=== PATIENT | female | born 1930 | race Hispanic/Latino ===

== ENCOUNTER 2018-07-19 14:33 | Emergency (ER) | payer MEDICARE ==
[2018-07-19 14:34] VITALS: BMI 23.3
[2018-07-19 14:53] VITALS: BP 151/72; PULSE 99; RESP 18; TEMP 98.4; O2SAT 99
[2018-07-19 15:49] LABS: URINE BILIRUBIN NEGATIVE (NEGATIVE); URINE BLOOD 3+ (NEGATIVE); URINE CLARITY Hazy (Clear); URINE COLOR Red (YELLOW); URINE GLUCOSE (UA) NORMAL (Normal); URINE LEUKOCYTE ESTERASE 2+ Leu/uL (Negative); URINE PROTEIN 2+ mg/dL (NEGATIVE); URINE UROBILINOGEN NORMAL mg/dL (0.2-1.0)
[2018-07-19 15:52] LABS: URINE BACTERIA OCC (<OCC)
--- NOTE | 2018-07-19 17:35 | C.PDOC ---
Addendum entered and electronically signed by Zita Castle PA 07/21/18 12:19: Addendum Addendum: 07/21/18 12:18 Urine culture came back (+) for ESBL. However it is susceptible to Macrobid which the patient is on. No need for change in medications. Original Note: History Of Present Illness 88 year old female presents to the ED for evaluation of urinary frequency for the last 3 weeks. Patient states she was seen by her PMD and prescribed Cipro, with no improvement. Denies back pain, abdominal pain, frequency, fever, chills, nausea, diarrhea, and any other associated symptoms. Time Seen by Provider: 07/19/18 15:10 Chief Complaint (Nursing): Female Genitourinary History Per: Patient History/Exam Limitations: no limitations Onset/Duration Of Symptoms: Days Current Symptoms Are (Timing): Still Present Past Medical History Reviewed: Historical Data, Nursing Documentation, Vital Signs Vital Signs: Last Vital Signs Temp 98.4 F 07/19/18 14:47 Pulse 99 H 07/19/18 14:47 Resp 18 07/19/18 14:47 BP 151/72 H 07/19/18 14:47 Pulse Ox 99 07/19/18 14:47 - Medical History PMH: HTN - [facility] Procedures RESPIRATORY VENTILATION, 24-96 CONSECUTIVE HOURS (10/20/17) Family History: States: Unknown Family Hx - Social History Hx Alcohol Use: Yes Hx Substance Use: No - Immunization History Hx Tetanus Toxoid Vaccination: No Hx Influenza Vaccination: No Hx Pneumococcal Vaccination: No Review Of Systems Except As Marked, All Systems Reviewed And Found Negative. Constitutional: Negative for: Fever, Chills Gastrointestinal: Negative for: Nausea, Vomiting, Abdominal Pain, Diarrhea Genitourinary: Positive for: Frequency Musculoskeletal: Negative for: Back Pain Physical Exam - Physical Exam Appears: Non-toxic Skin: Normal Color, Warm, Dry Head: Atraumatic, Normacephalic Respiratory: Other (no acute respiratory distress.) Gastrointestinal/Abdominal: Normal Exam, Soft, No Tenderness Back: Normal Inspection, No CVA Tenderness, No Vertebral Tenderness, No Paraspinal Tenderness Extremity: Normal ROM (x4) Neurological/Psych: Oriented x3, Normal Speech Gait: Steady ED Course And Treatment O2 Sat by Pulse Oximetry: 99 (RA) Pulse Ox Interpretation: Normal Medical Decision Making Medical Decision Making: Plan: --Urine culture. --Urinalysis. --Urine HCG --Given Macrobid. Progress/Update: Patient stable for discharge home. Disposition Counseled Patient/Family Regarding: Studies Performed, Diagnosis, Need For F ollowup, Rx Given - Disposition Referrals: Vivek Carter MD [Staff Provider] - Casimiro Marshall MD [Staff Provider] - Shady Marks Jr., MD [Staff Provider] - Disposition: HOME/ ROUTINE Disposition Time: 17:33 Condition: GOOD Additional Instructions: Drink increased fluids Take antiboitcs until completed. Follow up with Dr Escobar and with Dr Marshall or Dr Javier after you finish your antiibiotics. Prescriptions: Nitrofurantoin Macrocrystals [Macrobid] 100 mg PO BID #14 cap Instructions: Urinary Tract Infection, Adult (DC) Forms: [facility] (Slovenian), General Discharge Instructions - Clinical Impression Clinical Impression: UTI (urinary tract infection) - PA / [employer] / Resident Statement MD/DO has reviewed & agrees with the documentation as recorded. - Scribe Statement The provider has reviewed the documentation as recorded by the Scribe (Malika Uribe) All medical record entries made by the Scribe were at my direction and personally dictated by me. I have reviewed the chart and agree that the record accurately reflects my personal performance of the history, physical exam, medical decision making, and the department course for this patient. I have also personally directed, reviewed, and agree with the discharge instructions and disposition.
== END 2018-07-19 17:48 | disposition home or self-care (01) ==
LOC: C.ER 14:33
DX: N39.0 Urinary tract infection, site not specified (principal)

== ENCOUNTER 2018-08-10 15:29 | Inpatient (IN) | payer MEDICARE ==
[2018-08-10 15:29] VITALS: BMI 23.3
--- NOTE | 2018-08-10 16:14 | C.PDOC ---
History Of Present Illness 88 year old female with PMHX of HTN sent to ED by Dr. Cartwright for evaluation of chronic cystitis. Complaining of 06/19 periumbilical and lower abdominal pain, urinary incontinence and urinary frequency for the past 2 months. Was seen in ED 07/19, diagnosed with UTI and placed on Macrobid for 7 days. Patient took the full course without improvement of symptoms. Culture and sensitivities later returned as ESBL + sensitive to Amikacin (RODNEY <2), Gentamicin (<1), Macrobid (<16), and Tobramycin (<1). Patient is now complaining of watery diarrhea for the last 3 days, non-bloody. Multiple episodes per day. Associated with loss of appetite, chills, and generalized weakness. Denies fever, nausea, vomiting, flank pain, hematuria. Treatment with Aleve does provides mild improvement of abdominal pain. Time Seen by Provider: 08/10/18 15:44 Chief Complaint (Nursing): Female Genitourinary Past Medical History Vital Signs: Last Vital Signs Temp 98 F 08/10/18 15:36 Pulse 110 H 08/10/18 15:36 Resp 18 08/10/18 15:36 BP 123/77 08/10/18 15:36 Pulse Ox 99 08/10/18 15:36 - Medical History PMH: HTN Other Surgeries: hysterectomy - [facility] Procedures RESPIRATORY VENTILATION, 24-96 CONSECUTIVE HOURS (10/20/17) Family History: States: Unknown Family Hx - Social History Hx Tobacco Use: Yes (former smoker 1/2ppd for 70 years) Hx Alcohol Use: Yes Hx Substance Use: No - Immunization History Hx Tetanus Toxoid Vaccination: No Hx Influenza Vaccination: No Hx Pneumococcal Vaccination: No Review Of Systems Constitutional: Positive for: Chills. Negative for: Fever Cardiovascular: Negative for: Chest Pain, Palpitations Respiratory: Negative for: Cough, Shortness of Breath Gastrointestinal: Positive for: Abdominal Pain, Diarrhea, Other (loss of appetite). Negative for: Nausea, Vomiting, Constipation, Melena, Hematochezia Genitourinary: Positive for: Dysuria, Frequency, Incontinence Neurological: Positive for: Weakness (generalized). Negative for: Numbness, Headache, Dizziness Physical Exam - Physical Exam Appears: Non-toxic, No Acute Distress Skin: Normal Color, Warm, Dry, Other (poor turgor) Head: Atraumatic, Normacephalic Eye(s): bilateral: Normal Inspection, PERRL, EOMI Nose: Normal, No Flaring Oral Mucosa: Moist Throat: Normal, No Erythema Neck: Normal, Normal ROM Cardiovascular: Rhythm Regular (tachycardia), No Rhythm Irregular, No Friction Rub, Murmur (systolic murmur heard in 2nd intercostal space on the R) Respiratory: Normal Breath Sounds, No Decreased Breath Sounds, No Rales, No Rhonchi, No Wheezing Gastrointestinal/Abdominal: Bowel Sounds (hyperactive ), Soft, Tenderness (diffuse denterness), Guarding (with palpation of all quadrants), No Rebound Back: No CVA Tenderness Extremity: Normal ROM, No Tenderness, Pedal Edema (trace), No Calf Tenderness, Capillary Refill (less than 2 seconds) Pulses: Left Dorsalis Pedis: Normal, Right Dorsalis Pedis: Normal Neurological/Psych: Oriented x3, Normal Speech, Normal Cranial Nerves (grossly), Normal Motor ED Course And Treatment - Laboratory Results Result Diagrams: 08/10/18 17:51 08/10/18 17:51 O2 Sat by Pulse Oximetry: 99 Medical Decision Making Medical Decision Making: Plan: CBC: WBC: 20.5, Hgb: 10, Hct: 31.4, Plt: 553 CMP: BUN 50, Cr 2.7 increased from 1.1 on 10/24/17, AST/ALT: 42/64, Alk phos 189 UA: 2+ protein, 3+ blood, 3+ leuk esterase, 115 WBC, 79 RBC, Many WBC, Many bacteria Urine culture Urine cytology IVF Tobrymicin 100mg IVBP due to sensitivities of 07/19/18 visit 18:[address] Beth Carter who agrees with plan and accepts admission. Requests Dr. Velázquez for nephrology . Disposition - Disposition Disposition: HOSPITALIZED Disposition Time: 18:37 Condition: STABLE - Clinical Impression Clinical Impression: UTI (urinary tract infection), Acute renal insufficiency, Dehydration, History of ESBL E. coli infection
[2018-08-10] MEDS ORDERED: Sodium Chloride 0.9% 1,000 ML IV ONE (16:58)
[2018-08-10] MEDS ORDERED: Sodium Chloride 0.9% 1,000 ML ONE (17:36)
[2018-08-10] MEDS ORDERED: Tobramycin Sulfate 40 mg/ml (2ml) Inj IVPB STA (17:43)
[2018-08-10 18:00] LABS: BASO # 0.1 K/uL (0.0-0.2); BASO % 0.4 % (0.0-2.0); EOS # 0.1 K/uL (0.0-0.7); EOS % 0.5 % (0.0-4.0); LYMPH # 1.3 K/uL (1.0-4.3); LYMPH % 6.5 % (20.0-40.0); MEAN CELL VOLUME 89.8 fL (81.0-99.0); MEAN CORPUSCULAR HEMOGLOBIN 28.7 pg (27.0-31.0); MEAN CORPUSCULAR HGB CONC 31.9 g/dL (33.0-37.0); MEAN PLATELET VOLUME 7.8 fL (7.2-11.7); MONO # 1.4 K/uL (0.0-0.8); NEUT # 17.6 K/uL (1.8-7.0); NEUT % 85.6 % (50.0-75.0); PLATELET COUNT 553 K/uL (130-400); RBC 3.49 Mil/uL (3.80-5.20); RED CELL DISTRIBUTION WIDTH 13.6 % (11.5-14.5); WHITE BLOOD COUNT 20.5 K/uL (4.8-10.8)
[2018-08-10 18:19] LABS: ALB/GLOB RATIO 0.9 (1.0-2.1); ALBUMIN 3.5 g/dL (3.5-5.0); CALCIUM 9.3 mg/dl (8.6-10.4)
[2018-08-10 18:26] LABS: BANDS 4 % (0-2); EOSINOPHIL 1 % (0-4); LYMPHOCYTE 13 % (20-40); MONOCYTE 4 % (0-10); NEUTROPHIL 78 % (50-75); TOTAL CELLS COUNTED 100
[2018-08-10 18:27] LABS: PLATELET ESTIMATE MARKEDLY INCREASED (NORMAL)
[2018-08-10 18:29] LABS: VENOUS BLOOD GAS BASE EXCESS -5.6 mmol/L (0.0-2.0); VENOUS BLOOD GAS PCO2 39 mmHg (40-60); VENOUS BLOOD GAS PO2 23 mm/Hg (30-55); VENOUS BLOOD PH 7.32 (7.32-7.43)
[2018-08-10 18:56] LABS: URINE BACTERIA MANY (<OCC); URINE BILIRUBIN NEGATIVE (NEGATIVE); URINE BLOOD 3+ (NEGATIVE); URINE CLARITY Hazy (Clear); URINE GLUCOSE (UA) NORMAL (Normal); URINE HYALINE CAST 0-2 /lpf (0-2); URINE LEUKOCYTE ESTERASE 3+ Leu/uL (Negative); URINE PROTEIN 2+ mg/dL (NEGATIVE); URINE UROBILINOGEN NORMAL mg/dL (0.2-1.0); WBC CLUMPS MANY /hpf
[2018-08-10 18:57] LABS: URINE COLOR YELLOW (YELLOW)
--- NOTE | 2018-08-10 19:38 | CP.PCM.CON ---
History of Present Illness - History of Present Illness History of Present Illness: sent for UTI/Cystistis last cultures + for ESBL- Merrem not tested will repeat c/s add merrem Review of Systems - Review of Systems All systems: reviewed and no additional remarkable complaints except - Constitutional Constitutional: As Per HPI - EENT Eyes: absent: As Per HPI, Blind Spots, Blurred Vision, Change in Vision, Decreased Night Vision, Diplopia, Discharge, Dry Eye, Exophthalmos, Floaters, Irritation, Itchy Eyes, Loss of Peripheral Vision, Pain, Photophobia, Requires Corrective Lenses, Sees Flashes, Spots in Vision, Tunnel Vision, Other Visual Disturbances, Loss of Vision, Other Ears: absent: As Per HPI, Decreased Hearing, Ear Discharge, Ear Pain, Tinnitus, Abnormal Hearing, Disequilibrium, Dizziness, Other Nose/Mouth/Throat: absent: As Per HPI, Epistaxis, Nasal Congestion, Nasal Discharge, Nasal Obstruction, Nasal Trauma, Nose Pain, Post Nasal Drip, Sinus Pain, Sinus Pressure, Bleeding Gums, Change in Voice, Dental Pain, Dry Mouth, Dysphagia, Halitosis, Hoarsness, Lip Swelling, Mouth Lesions, Mouth Pain, Odynophagia, Sore Throat, Throat Swelling, Tongue Swelling, Facial Pain, Neck Pain, Neck Mass, Other - Breasts Breasts: absent: As Per HPI, Change in Shape, Mass, Pain, Nipple Discharge, Nipple Inversion, Skin Changes, Swelling, Other - Cardiovascular Cardiovascular: absent: As Per HPI, Acrocyanosis, Chest Pain, Chest Pain at R est, Chest Pain with Activity, Claudication, Diaphoresis, Dyspnea, Dyspnea on Exertion, Edema, Irregular Heart Rhythm, Pain Radiating to Arm/Neck/Jaw, Leg Edema, Leg Ulcers, Lightheadedness, Orthopnea, Palpitations, Paroxysmal Nocturnal Dyspnea, Pedal Edema, Radiating Pain, Rapid Heart Rate, Slow Heart Rate, Syncope, Other - Respiratory Respiratory: absent: As Per HPI, Cough, Dyspnea, Hemoptysis, Dyspnea on Exertion, Wheezing, Snoring, Stridor, Pain on Inspiration, Chest Congestion, Excessive Mucous Production, Change in Mucous Color, Pain with Coughing, Other - Gastrointestinal Gastrointestinal: As Per HPI, Change in Bowel Habits - Genitourinary Genitourinary: As Per HPI - Reproductive: Female Reproductive:Female: absent: As Per HPI, Amenorrhea, Amenorrhea/ Control, Currently Menstual, Cycle <21 Days, Cycle >35 Days, Cycle Variable, Menses 1-7 Days, Menses >/= 8 Days, Menses Variable, Cycle > 4 Weeks Between, No Menses for 6 Months, Heavy Menses, Light Menses, Normal Menses, Spotting Between Cycles, S/P Hysterectomy, Menopausal, Post Menopausal, Premenarche, Abnormal Vaginal Bleeding, Dysmenorrhea, Dyspareunia, Genital Lesions, Genital Pruritis, Pelvic Pain, Prolapse Symptoms, Sexual Dysfunction, Vaginal Discharge, Vaginal Dryness, Vaginal Odor, Vaginal Pruritis, Other - Menstruation Menstruation: absent: As Per HPI, Amenorrhea, Amenorrhea/ Control, Currently Menstual, Cycle <21 Days, Cycle >35 Days, Cycle Variable, Menses 1-7 Days, Menses >/= 8 Days, Menses Variable, Cycle > 4 Weeks Between, No Menses for 6 Months, Heavy Menses, Light Menses, Normal Menses, Spotting Between Cycles, S/P Hysterectomy, Menopausal, Post Menopausal, Premenarche, Abnormal Vaginal Bleeding, Dysmenorrhea, Other - Musculoskeletal Musculoskeletal: absent: As Per HPI, Abnormal Gait, Arthralgias, Atrophy, Back Pain, Deformity, Joint Swelling, Limited Range of Motion, Loss of Height, Muscle Cramps, Muscle Weakness, Myalgias, Neck Pain, Numbness, Radiating Pain into Limb, Stiffness, Tingling, Other - Integumentary Integumentary: absent: As Per HPI, Acne, Alopecia, Bleeding Lesions, Change in Hair, Change in Nails, Change in Pigmentation, Changing Lesions, Dry Skin, Erythema, Furuncle, Hirsutism, Lesions, New Lesions, Non-Healing Lesions, Photosensitivity, Pruritus, Rash, Skin Pain, Skin Ulcer, Sores, Striae, Swelling, Unusual Bruising, Wounds, Jaundice, Other - Neurological Neurological: absent: As Per HPI, Abnormal Gait, Abnormal Hearing, Abnormal Movements, Abnormal Speech, Behavioral Changes, Burning Sensations, Confusion, Convulsions, Disequilibrium, Dizziness, Numbness, Focal Weakness, Frequent Falls, Headaches, Lack of Coordination, Loss of Vision, Memory Loss, Paresthesias, Radicular Pain, Restless Legs, Sensory Deficit, Syncope, Tingling, Tremor, Vertigo, Weakness, Other Visual Disturbances, Other - Psychiatric Psychiatric: absent: As Per HPI, Abnormal Sleep Pattern, Anhedonia, Anxiety, Auditory Hallucinations, Behavioral Changes, Change in Appetite, Change in Libido, Confusion, Depression, Difficulty Concentrating, Hallucinations, Homicidal Ideation, Hopelessness, Irritability, Memory Loss, Mood Swings, Panic Attacks, Paranoia, Suicidal Ideation, Visual Hallucinations, Tactile Hallucinations, Other - Endocrine Endocrine: absent: As Per HPI, Change in Body Appearance, Change in Libido, Cold Intolorance, Deepening of Voice, Excessive Sweating, Fatigue, Flushing, Heat Intolorance, Increase in Ring/Shoe/Hat Size, Palpitations, Polydipsia, Polyphagia, Polyuria, Other - Hematologic/Lymphatic Hematologic: absent: As Per HPI, Easy Bleeding, Easy Bruising, Lymphadenopathy, Other Past Patient History - Infectious Disease Hx of Infectious Diseases: None - Past Medical History & Family History Past Medical History?: Yes - Past Social History Smoking Status: Former Smoker - CARDIAC Hx Hypertension: Yes - MUSCULOSKELETAL/RHEUMATOLOGICAL Hx Falls: No - PSYCHIATRIC Hx Substance Use: No - SURGICAL HISTORY Hx Surgeries: No - ANESTHESIA Hx Anesthesia: No Meds Allergies/Adverse Reactions: Allergies Allergy/AdvReac Type Severity Reaction Status Date / Time cat dander Allergy RASH Verified 07/19/18 14:53 - Medications Medications: Current Medications Tobramycin Sulfate 100 mg/ (Sodium Chloride) 102.5 mls @ 102.5 mls/hr IVPB ONCE ONE Stop: 08/10/18 19:59 Last Admin: 08/10/18 19:00 Dose: 102.5 mls/hr Physical Exam - Constitutional Appears: Non-toxic, Chronically Ill - Head Exam Head Exam: NORMOCEPHALIC - Eye Exam Eye Exam: absent: Scleral icterus - ENT Exam ENT Exam: Mucous Membranes Dry - Neck Exam Neck exam: Negative for: Lymphadenopathy - Respiratory Exam Respiratory Exam: Decreased Breath Sounds, Clear to Auscultation Bilateral - Cardiovascular Exam Cardiovascular Exam: REGULAR RHYTHM, +S1, +S2 - GI/Abdominal Exam GI & Abdominal Exam: Diminished Bowel Sounds, Distended, Guarding, Soft, Tenderness. absent: Rebound, Rigid - Rectal Exam Rectal Exam: Deferred - Exam Exam: NORMAL INSPECTION - Extremities Exam Extremities exam: Positive for: pedal pulses present. Negative for: calf tenderness, pedal edema, tenderness - Back Exam Back exam: absent: CVA tenderness (L), CVA tenderness (R) - Neurological Exam Neurological exam: Alert, CN II-XII Intact, Oriented x3, Reflexes Normal - Psychiatric Exam Psychiatric exam: Depressed - Skin Skin Exam: Dry Results - Vital Signs Recent Vital Signs: Last Vital Signs Temp 98.3 F 08/10/18 19:15 Pulse 85 08/10/18 19:15 Resp 17 08/10/18 19:15 BP 118/66 08/10/18 19:15 Pulse Ox 95 08/10/18 19:15 - Labs Result Diagrams: 08/10/18 17:51 08/10/18 17:51 Labs: Laboratory Results - last 24 hr 08/10/18 08/10/18 08/10/18 17:51 17:51 18:26 WBC 20.5 H D RBC 3.49 L Hgb 10.0 L D Hct 31.4 L MCV 89.8 D MCH 28.7 MCHC 31.9 L RDW 13.6 Plt Count 553 H D MPV 7.8 Neut % (Auto) 85.6 H Lymph % (Auto) 6.5 L [place] % (Auto) 7.0 Eos % (Auto) 0.5 Baso % (Auto) 0.4 Neut # (Auto) 17.6 H Lymph # (Auto) 1.3 [place] # (Auto) 1.4 H Eos # (Auto) 0.1 Baso # (Auto) 0.1 Neutrophils % (Manual) 78 H Band Neutrophils % 4 H Lymphocytes % (Manual) 13 L Monocytes % (Manual) 4 Eosinophils % (Manual) 1 Platelet Estimate Markedly increased H pO2 23 L VBG pH 7.32 VBG pCO2 39 L VBG HCO3 18.8 VBG Total CO2 21.3 L VBG O2 Sat (Calc) 38.5 L VBG Base Excess -5.6 L VBG Potassium 4.4 Glucose 123 H Lactate 2.1 Sodium 139 139.0 Potassium 5.0 Chloride 103 110.0 H Carbon Dioxide 19 L Anion Gap 21 H BUN 50 H Creatinine 2.7 H Est GFR ( Amer) 20 Est GFR (Non-Af Amer) 17 Random Glucose 136 H Calcium 9.3 Total Bilirubin 0.6 AST 42 H D ALT 64 H D Alkaline Phosphatase 189 H D Total Protein 7.2 Albumin 3.5 D Globulin 3.7 Albumin/Globulin Ratio 0.9 L Venous Blood Potassium 4.4 Urine Color Urine Clarity Urine pH Ur Specific [place] Urine Protein Urine Glucose (UA) Urine Ketones Urine Blood Urine Nitrate Urine Bilirubin Urine Urobilinogen Ur Leukocyte Esterase Urine WBC (Auto) Urine RBC (Auto) Urine WBC Clumps (Auto) Urine Bacteria Hyaline Casts 08/10/18 18:43 WBC RBC Hgb Hct MCV MCH MCHC RDW Plt Count MPV Neut % (Auto) Lymph % (Auto) [place] % (Auto) Eos % (Auto) Baso % (Auto) Neut # (Auto) Lymph # (Auto) [place] # (Auto) Eos # (Auto) Baso # (Auto) Neutrophils % (Manual) Band Neutrophils % Lymphocytes % (Manual) Monocytes % (Manual) Eosinophils % (Manual) Platelet Estimate pO2 VBG pH VBG pCO2 VBG HCO3 VBG Total CO2 VBG O2 Sat (Calc) VBG Base Excess VBG Potassium Glucose Lactate Sodium Potassium Chloride Carbon Dioxide Anion Gap BUN Creatinine Est GFR ( Amer) Est GFR (Non-Af Amer) Random Glucose Calcium Total Bilirubin AST ALT Alkaline Phosphatase Total Protein Albumin Globulin Albumin/Globulin Ratio Venous Blood Potassium Urine Color Yellow Urine Clarity Hazy Urine pH 6.0 Ur Specific [place] 1.009 Urine Protein 2+ H Urine Glucose (UA) Normal Urine Ketones Negative Urine Blood 3+ H Urine Nitrate Negative Urine Bilirubin Negative Urine Urobilinogen Normal Ur Leukocyte Esterase 3+ H Urine WBC (Auto) 115 H Urine RBC (Auto) 79 H Urine WBC Clumps (Auto) Many H Urine Bacteria Many H Hyaline Casts 0-2 Assessment & Plan (1) Acute renal insufficiency Status: Acute (2) Dehydration Status: Acute (3) History of ESBL E. coli infection Status: Acute (4) UTI (urinary tract infection) Status: Acute (5) COPD exacerbation Status: Acute - Assessment and Plan (Free Text) Assessment: CONT IV ANTIBIOTICS FOLLOW UP CHECK CULTURES
[2018-08-10] MEDS: Meropenem 500 MG in Sodium Chloride 0.9% 100 ML IVPB SCH (20:34)
[2018-08-10] MEDS ORDERED: Albuterol 0.042% Inhal Sol (1.25 mg/3 mL) UD INH PRN (21:34)
[2018-08-10] MEDS ORDERED: Morphine 4 MG/ML VIAL IV PRN (23:54)
[2018-08-11] MEDS ORDERED: Morphine 4 MG/ML VIAL IV PRN (00:15)
[2018-08-11] MEDS: Meropenem 500 MG in Sodium Chloride 0.9% 100 ML IVPB SCH ×3 (02:46→21:19)
[2018-08-11] MEDS ORDERED: Fluticasone-Vilanterol 100/25mcg Diskus INH SCH (08:00)
[2018-08-11] MEDS ORDERED: Pantoprazole 40 mg EC Tab PO SCH (10:00)
[2018-08-11] MEDS ORDERED: Enoxaparin 40 mg Syringe SC SCH ×2 (10:00)
[2018-08-11] MEDS ORDERED: Metoprolol Succinate 50 mg XL Tab PO SCH (10:00)
--- NOTE | 2018-08-11 10:01 | CP.PCM.PN ---
Subjective - Date & Time of Evaluation Date of Evaluation: 08/11/18 Time of Evaluation: 09:53 - Subjective Subjective: Pt seen in our officce yesterday after being refered on 07/19/18 by er with cystitis pthad +c&s urine esbl. and was placed on Macrodantin and failed to improve she was referd for testing but decided to go back to ER because of pelvic pain before completing tests pt is also having watery stool. pt has been placed on antibiotics by ID. PE unchanged from yesterday.wbc elevated.A Resistant uti pelvic pain watery stooll,R/o vesico colic fistula urinary obstruction or lesion or stone.Suggest CT abdomen pelvis continue with antibiotics. Kendrick Objective - Vital Signs/Intake and Output Vital Signs (last 24 hours): Temp Pulse Resp BP Pulse Ox 97.6 F 95 H 20 107/67 95 08/11/18 08:45 08/11/18 08:45 08/11/18 08:45 08/11/18 08:45 08/11/18 08:45 Intake and Output: 08/11/18 08/11/18 06:59 18:59 Intake Total 360 Balance 360 - Medications Medications: Current Medications Albuterol Sulfate (Albuterol 0.042% Inhal Daisha (1.25mg/3ml) Ud) 1.25 mg INH RQ6 PRN PRN Reason: Shortness of Breath Amlodipine Besylate (Norvasc) 10 mg PO DAILY [facility] Aspirin (Aspirin Chewable) 81 mg PO DAILY [facility] Fluticasone/Vilanterol (Breo Ellipta 100-25 Mcg Inh) 1 puff INH RQD [facility] Last Admin: 08/11/18 08:27 Dose: Not Given Heparin Sodium (Porcine) (Heparin) 5,000 units SC Q12 [facility] Meropenem 500 mg/ Sodium (Chloride) 100 mls @ 100 mls/hr IVPB Q8H [facility]; Protocol Last Admin: 08/11/18 02:46 Dose: 100 mls/hr Influenza Virus Vaccine (Fluzone Quad [id number]) 60 mcg IM .ONCE ONE Stop: 08/12/18 10:01 Losartan Potassium (Cozaar) 100 mg PO DAILY [facility] Metoprolol Succinate (Toprol Xl) 50 mg PO DAILY [facility] Morphine Sulfate (Morphine) 4 mg IV Q6H PRN PRN Reason: Pain, moderate (4-7) Last Admin: 08/11/18 05:34 Dose: 4 mg Pantoprazole Sodium (Protonix Ec Tab) 40 mg PO DAILY [facility] Pneumococcal Polyvalent Vaccine (Pneumovax 23 Vaccine) 0.5 ml IM .ONCE ONE Stop: 08/12/18 10:01 Rosuvastatin Calcium (Crestor) 10 mg PO HS JOHN Last Admin: 08/10/18 22:00 Dose: 10 mg - Labs Labs: 08/10/18 17:51 08/10/18 17:51
[2018-08-11] MEDS ORDERED: Sodium Chloride 0.9% 1,000 ML IV SCH (14:30)
--- NOTE | 2018-08-11 15:25 | CP.PCM.HP ---
Past Patient History - Infectious Disease Hx of Infectious Diseases: None - Past Medical History & Family History Past Medical History?: Yes - Past Social History Smoking Status: Former Smoker - CARDIAC Hx Hypertension: Yes - MUSCULOSKELETAL/RHEUMATOLOGICAL Hx Falls: No - PSYCHIATRIC Hx Substance Use: No - SURGICAL HISTORY Hx Surgeries: No - ANESTHESIA Hx Anesthesia: No Meds Allergies/Adverse Reactions: Allergies Allergy/AdvReac Type Severity Reaction Status Date / Time cat dander Allergy RASH Verified 07/19/18 14:53 Physical Exam - Constitutional Appears: Well - Head Exam Head Exam: ATRAUMATIC, NORMAL INSPECTION, NORMOCEPHALIC - Eye Exam Eye Exam: EOMI, Normal appearance, PERRL Pupil Exam: NORMAL ACCOMODATION, PERRL - ENT Exam ENT Exam: Mucous Membranes Moist, Normal Exam - Neck Exam Neck exam: Positive for: Normal Inspection - Respiratory Exam Respiratory Exam: Decreased Breath Sounds - Cardiovascular Exam Cardiovascular Exam: REGULAR RHYTHM, +S1, +S2 - GI/Abdominal Exam GI & Abdominal Exam: Diminished Bowel Sounds, Soft - Rectal Exam Rectal Exam: Deferred Results - Vital Signs Recent Vital Signs: Last Vital Signs Temp 97.6 F 08/11/18 08:45 Pulse 95 H 08/11/18 08:45 Resp 20 08/11/18 08:45 BP 107/67 08/11/18 08:45 Pulse Ox 95 08/11/18 08:45 - Labs Result Diagrams: 08/10/18 17:51 08/10/18 17:51 Labs: Laboratory Results - last 24 hr 08/10/18 08/10/18 08/10/18 17:51 17:51 18:26 WBC 20.5 H D RBC 3.49 L Hgb 10.0 L D Hct 31.4 L MCV 89.8 D MCH 28.7 MCHC 31.9 L RDW 13.6 Plt Count 553 H D MPV 7.8 Neut % (Auto) 85.6 H Lymph % (Auto) 6.5 L [place] % (Auto) 7.0 Eos % (Auto) 0.5 Baso % (Auto) 0.4 Neut # (Auto) 17.6 H Lymph # (Auto) 1.3 [place] # (Auto) 1.4 H Eos # (Auto) 0.1 Baso # (Auto) 0.1 Neutrophils % (Manual) 78 H Band Neutrophils % 4 H Lymphocytes % (Manual) 13 L Monocytes % (Manual) 4 Eosinophils % (Manual) 1 Platelet Estimate Markedly increased H pO2 23 L VBG pH 7.32 VBG pCO2 39 L VBG HCO3 18.8 VBG Total CO2 21.3 L VBG O2 Sat (Calc) 38.5 L VBG Base Excess -5.6 L VBG Potassium 4.4 Glucose 123 H Lactate 2.1 Sodium 139 139.0 Potassium 5.0 Chloride 103 110.0 H Carbon Dioxide 19 L Anion Gap 21 H BUN 50 H Creatinine 2.7 H Est GFR ( Amer) 20 Est GFR (Non-Af Amer) 17 Random Glucose 136 H Calcium 9.3 Total Bilirubin 0.6 AST 42 H D ALT 64 H D Alkaline Phosphatase 189 H D Total Protein 7.2 Albumin 3.5 D Globulin 3.7 Albumin/Globulin Ratio 0.9 L Venous Blood Potassium 4.4 Urine Color Urine Clarity Urine pH Ur Specific [place] Urine Protein Urine Glucose (UA) Urine Ketones Urine Blood Urine Nitrate Urine Bilirubin Urine Urobilinogen Ur Leukocyte Esterase Urine WBC (Auto) Urine RBC (Auto) Urine WBC Clumps (Auto) Urine Bacteria Hyaline Casts 08/10/18 18:43 WBC RBC Hgb Hct MCV MCH MCHC RDW Plt Count MPV Neut % (Auto) Lymph % (Auto) [place] % (Auto) Eos % (Auto) Baso % (Auto) Neut # (Auto) Lymph # (Auto) [place] # (Auto) Eos # (Auto) Baso # (Auto) Neutrophils % (Manual) Band Neutrophils % Lymphocytes % (Manual) Monocytes % (Manual) Eosinophils % (Manual) Platelet Estimate pO2 VBG pH VBG pCO2 VBG HCO3 VBG Total CO2 VBG O2 Sat (Calc) VBG Base Excess VBG Potassium Glucose Lactate Sodium Potassium Chloride Carbon Dioxide Anion Gap BUN Creatinine Est GFR ( Amer) Est GFR (Non-Af Amer) Random Glucose Calcium Total Bilirubin AST ALT Alkaline Phosphatase Total Protein Albumin Globulin Albumin/Globulin Ratio Venous Blood Potassium Urine Color Yellow Urine Clarity Hazy Urine pH 6.0 Ur Specific [place] 1.009 Urine Protein 2+ H Urine Glucose (UA) Normal Urine Ketones Negative Urine Blood 3+ H Urine Nitrate Negative Urine Bilirubin Negative Urine Urobilinogen Normal Ur Leukocyte Esterase 3+ H Urine WBC (Auto) 115 H Urine RBC (Auto) 79 H Urine WBC Clumps (Auto) Many H Urine Bacteria Many H Hyaline Casts 0-2
--- NOTE | 2018-08-11 15:47 | CT ---
Date of service: 08/11/2018 PROCEDURE: CT Abdomen and Pelvis without intravenous contrast HISTORY: persistant uti COMPARISON: No prior TECHNIQUE: Contiguous images were obtained from the domes of the diaphragms to the upper thighs without the administration of intravenous contrast. Oral contrast was not administered. Radiation dose: Total exam DLP = 543.5 mGy-cm. This CT exam was performed using one or more of the following dose reduction techniques: Automated exposure control, adjustment of the mA and/or kV according to patient size, and/or use of iterative reconstruction technique. FINDINGS: LOWER THORAX: Cardiomegaly. Coronary arterial and valvular calcifications. Bilateral lower lobe atelectasis/scarring. LIVER: Small amount of air trapped along hepatic ligaments and anterior to main portal vein. No portal venous gas or pneumobilia. No gross lesion or ductal dilatation. GALLBLADDER AND BILE DUCTS: Unremarkable. CBD prominence. PANCREAS: Atrophy. Mild ductal prominence. SPLEEN: Unremarkable. ADRENALS: Unremarkable. No mass. KIDNEYS AND URETERS: Moderate left hydronephrosis with air in the renal pelvis and left ureter. 2.7 cm exophytic left upper pole cyst. No solid mass. VASCULATURE: Unremarkable. No aortic aneurysm. Aortic atherosclerotic calcification and mural plaque present. BOWEL: Scattered areas of small bowel primarily in the central pelvis long segment colonic wall thickening with pericolonic stranding. Questionable fistulous connection from small bowel to the urinary bladder dome (series 3, images [id number]). APPENDIX: No findings suggest acute appendicitis. PERITONEUM: Trace pelvic ascites. Pneumoperitoneum, concentrated mostly in the upper abdomen, round stomach. LYMPH NODES: Unremarkable. No enlarged lymph nodes. BLADDER: Markedly thickened wall, distended with air and fluid despite presence of Fish catheter. REPRODUCTIVE: Unremarkable. BONES: No acute fracture. Spinal degenerative changes. OTHER FINDINGS: None. IMPRESSION: Pneumoperitoneum consistent with perforated viscus. Source is unclear although may possibly be related to gastric ulcer as areas concentrated around the anterior gastric wall. Colonic etiologies not excluded. Colonic wall thickening, primarily involving the splenic flexure and descending colon. This is nonspecific and may be related to underdistention versus infectious/inflammatory/ischemic etiology. Markedly thickened urinary bladder wall with air within the urinary bladder and air seen within the left ureter extending up into the left renal pelvis. Findings may be secondary to infection with gas producing organism originating within the genitourinary tract (emphysematous pyelitis) versus secondary to enterovesical fistula with reflux of air into the left renal collecting system. Numerous additional findings as above. Findings given to CASSIE Laws by Dr. Melgar at 2:41 p.m. on 08/11/2018.
--- NOTE | 2018-08-11 15:50 | CP.PCM.CON ---
History of Present Illness - History of Present Illness History of Present Illness: GENERAL SURGERY CONSULT NOTE FOR DR. COLLINS 88yo F with PMHx of HTN, hyperlipidemia, COPD, who presented to the ED yesterday as sent by Dr. Cartwright for evaluation of chronic cystitis. Patient was complaining of periumbilical and lower abdominal pain for past 2 days and urinary incontinence, urinary frequency for past 2 months. She was seen in the ED on 07/19, diagnosed with UTI and placed on Macrobid. Pt took full course of Abx wit hout improvement. Pt also reports 3-4 episodes of vomiting. Last BM yesterday. Per reports, pt was also having watery diarrhea. Pt denies pneumaturia. When asked about seeing sool in her urine she states that she wasn't sure. Pt has decreased appetite. Most information obtained from medical record. When asked questions regarding her medical history, pt would state "I don't know, it's in my chart". In the ED, WBC 20.5, UA showed UTI, BUN/Cr elevated. She was admitted for acute renal insufficiency, dehydration, UTI. 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 Fish in place. PMHx: HTN, hyperlipidemia, COPD, admitted for COPD exacerbation in October Surgeries: hysterectomy Allergies: cat dander Social history: former smoker Review of Systems - Review of Systems All systems: reviewed and no additional remarkable complaints except (as per HPI) Past Patient History - Infectious Disease Hx of Infectious Diseases: None - Past Medical History & Family History Past Medical History?: Yes - Past Social History Smoking Status: Former Smoker - CARDIAC Hx Hypertension: Yes - MUSCULOSKELETAL/RHEUMATOLOGICAL Hx Falls: No - PSYCHIATRIC Hx Substance Use: No - SURGICAL HISTORY Hx Surgeries: No - ANESTHESIA Hx Anesthesia: No Meds Allergies/Adverse Reactions: Allergies Allergy/AdvReac Type Severity Reaction Status Date / Time cat dander Allergy RASH Verified 07/19/18 14:53 - Medications Medications: Current Medications Albuterol Sulfate (Albuterol 0.042% Inhal Daisha (1.25mg/3ml) Ud) 1.25 mg INH RQ6 PRN PRN Reason: Shortness of Breath Amlodipine Besylate (Norvasc) 10 mg PO DAILY [facility] Last Admin: 08/11/18 10:00 Dose: 10 mg Aspirin (Aspirin Chewable) 81 mg PO DAILY [facility] Last Admin: 08/11/18 10:00 Dose: 81 mg Fluticasone/Vilanterol (Breo Ellipta 100-25 Mcg Inh) 1 puff INH RQD [facility] Last Admin: 08/11/18 08:27 Dose: Not Given Heparin Sodium (Porcine) (Heparin) 5,000 units SC Q12 [facility] Last Admin: 08/11/18 10:00 Dose: 5,000 units Meropenem 500 mg/ Sodium (Chloride) 100 mls @ 100 mls/hr IVPB Q8H [facility]; Protocol Last Admin: 08/11/18 14:26 Dose: 100 mls/hr Sodium Chloride (Sodium Chloride 0.9%) 1,000 mls @ 100 mls/hr IV .Q10H [facility] Last Admin: 08/11/18 15:05 Dose: 100 mls/hr Influenza Virus Vaccine (Fluzone Quad [id number]) 60 mcg IM .ONCE ONE Stop: 08/12/18 10:01 Metoprolol Succinate (Toprol Xl) 50 mg PO DAILY [facility] Last Admin: 08/11/18 10:00 Dose: 50 mg Morphine Sulfate (Morphine) 4 mg IV Q6H PRN PRN Reason: Pain, moderate (4-7) Last Admin: 08/11/18 05:34 Dose: 4 mg Pantoprazole Sodium (Protonix Ec Tab) 40 mg PO DAILY [facility] Last Admin: 08/11/18 10:00 Dose: 40 mg Pneumococcal Polyvalent Vaccine (Pneumovax 23 Vaccine) 0.5 ml IM .ONCE ONE Stop: 08/12/18 10:01 Rosuvastatin Calcium (Crestor) 10 mg PO HS [facility] Last Admin: 08/10/18 22:00 Dose: 10 mg Physical Exam - Constitutional Appears: No Acute Distress - Head Exam Head Exam: ATRAUMATIC, NORMAL INSPECTION - Eye Exam Eye Exam: EOMI - Respiratory Exam Respiratory Exam: NORMAL BREATHING PATTERN. absent: Respiratory Distress - Cardiovascular Exam Cardiovascular Exam: +S1, +S2. absent: Tachycardia - GI/Abdominal Exam GI & Abdominal Exam: Guarding, Rebound, Soft, Tenderness (diffusely tender). absent: Distended, Firm, Rigid Additional comments: well healed lower midline scar - Neurological Exam Neurological exam: Alert, CN II-XII Intact, Oriented x3 - Psychiatric Exam Psychiatric exam: Normal Affect, Normal Mood - Skin Skin Exam: Dry, Normal Color Results - Vital Signs Recent Vital Signs: Last Vital Signs Temp 97.6 F 08/11/18 08:45 Pulse 95 H 08/11/18 08:45 Resp 20 08/11/18 08:45 BP 107/67 08/11/18 08:45 Pulse Ox 95 08/11/18 08:45 - Labs Result Diagrams: 08/10/18 17:51 08/10/18 17:51 Labs: Laboratory Results - last 24 hr 08/10/18 08/10/18 08/10/18 17:51 17:51 18:26 WBC 20.5 H D RBC 3.49 L Hgb 10.0 L D Hct 31.4 L MCV 89.8 D MCH 28.7 MCHC 31.9 L RDW 13.6 Plt Count 553 H D MPV 7.8 Neut % (Auto) 85.6 H Lymph % (Auto) 6.5 L [place] % (Auto) 7.0 Eos % (Auto) 0.5 Baso % (Auto) 0.4 Neut # (Auto) 17.6 H Lymph # (Auto) 1.3 [place] # (Auto) 1.4 H Eos # (Auto) 0.1 Baso # (Auto) 0.1 Neutrophils % (Manual) 78 H Band Neutrophils % 4 H Lymphocytes % (Manual) 13 L Monocytes % (Manual) 4 Eosinophils % (Manual) 1 Platelet Estimate Markedly increased H pO2 23 L VBG pH 7.32 VBG pCO2 39 L VBG HCO3 18.8 VBG Total CO2 21.3 L VBG O2 Sat (Calc) 38.5 L VBG Base Excess -5.6 L VBG Potassium 4.4 Glucose 123 H Lactate 2.1 Sodium 139 139.0 Potassium 5.0 Chloride 103 110.0 H Carbon Dioxide 19 L Anion Gap 21 H BUN 50 H Creatinine 2.7 H Est GFR ( Amer) 20 Est GFR (Non-Af Amer) 17 Random Glucose 136 H Calcium 9.3 Total Bilirubin 0.6 AST 42 H D ALT 64 H D Alkaline Phosphatase 189 H D Total Protein 7.2 Albumin 3.5 D Globulin 3.7 Albumin/Globulin Ratio 0.9 L Venous Blood Potassium 4.4 Urine Color Urine Clarity Urine pH Ur Specific [place] Urine Protein Urine Glucose (UA) Urine Ketones Urine Blood Urine Nitrate Urine Bilirubin Urine Urobilinogen Ur Leukocyte Esterase Urine WBC (Auto) Urine RBC (Auto) Urine WBC Clumps (Auto) Urine Bacteria Hyaline Casts 08/10/18 18:43 WBC RBC Hgb Hct MCV MCH MCHC RDW Plt Count MPV Neut % (Auto) Lymph % (Auto) [place] % (Auto) Eos % (Auto) Baso % (Auto) Neut # (Auto) Lymph # (Auto) [place] # (Auto) Eos # (Auto) Baso # (Auto) Neutrophils % (Manual) Band Neutrophils % Lymphocytes % (Manual) Monocytes % (Manual) Eosinophils % (Manual) Platelet Estimate pO2 VBG pH VBG pCO2 VBG HCO3 VBG Total CO2 VBG O2 Sat (Calc) VBG Base Excess VBG Potassium Glucose Lactate Sodium Potassium Chloride Carbon Dioxide Anion Gap BUN Creatinine Est GFR ( Amer) Est GFR (Non-Af Amer) Random Glucose Calcium Total Bilirubin AST ALT Alkaline Phosphatase Total Protein Albumin Globulin Albumin/Globulin Ratio Venous Blood Potassium Urine Color Yellow Urine Clarity Hazy Urine pH 6.0 Ur Specific [place] 1.009 Urine Protein 2+ H Urine Glucose (UA) Normal Urine Ketones Negative Urine Blood 3+ H Urine Nitrate Negative Urine Bilirubin Negative Urine Urobilinogen Normal Ur Leukocyte Esterase 3+ H Urine WBC (Auto) 115 H Urine RBC (Auto) 79 H Urine WBC Clumps (Auto) Many H Urine Bacteria Many H Hyaline Casts 0-2 Assessment & Plan - Assessment and Plan (Free Text) Assessment: 88yo F with PMHx of HTN, hyperlipidemia, COPD who presented with abdominal pain and found to have free air likely secondary to perforated viscus as well as UTI, 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 Source unclear although may be related to gastric ulcer as areas concentrated around anterior gastric wall. Colonic wall thickening, involving splenic flexure and descending colon. Markedly thickened urinary bladder wall w/ air in bladder & air seen in left ureter extending up into the left renal pelvis. Possibly secondary to infection w/ gas producing organism (emphysematous pyelitis) vs secondary to enterovesical fisula w/ reflux of air into the left renal collecting system. - Stat labs: CBC, CMP, coags, ABG w/ shock panel - EKG, CXR - NPO, IV fluids - IV antibiotics - OR for exploratory laparotomy DARRION - Discussed CT findings, risks and benefits of emergency surgery, all questions were answered. Written consent was obtained from the patient and is in the chart. - Discussed plan with Dr. Beny Pickard PGY-4
--- NOTE | 2018-08-11 15:56 | CP.PCM.CON ---
History of Present Illness - History of Present Illness History of Present Illness: Nephrology Consultation Note: Assessment: critical Acute Kidney Injury (N17.9) likely due to pre-renal state Hypertensive Chronic Kidney Disease (I12.9) Chronic Kidney Disease (N18.3) Stage 3 Anemia COPD MDR UTI and concerns for enterovesical fistula with left hydronephrosis pneumoperitoneum concerns for perforate viscus Plan No acute need for renal replacement therapy at this time. Hypertension control with meds as ordered. Maintain hemodynamics stable. Avoid hypotension .hold ACEI/ARB due to recent JU Monitor Input/Output, daily weights and renal function with basic metabolic panel started IVF as NS @ 100 ml/hr stat surgery eval, being arranged by [facility] [employer] on floor urology and ID follow up Check urine analysis, spot protein/creatinine, albumin/creatinine ratio Anemia work up with TSAT/Ferritin/Vitamin B12/folate Check for 25-OH vitamin D, iPTH, phosphorus level. Dose meds/antibiotics for reduced GFR. Avoid fleets enema/magnesium based laxatives. Avoid nephrotoxins/NSAIDs/ iodinated contrast (unless needed emergently) Glycemic control Further work up/management as per primary team Thanks for allowing me to participate in care of your patient. Will follow patient with you. Please call if any Qs. had d/w team Dr Zoltan Velázquez Office: [phone] Chief Complaint; pain abdomen Reason for consult: Acute Kidney Injury HPI: Pt is a 88 F with hx of COPD, hypertension (years) presented with complaints of MDR UTI and concerns for enterovesical fistula. also with worsening pain abdomen with nausea/vomitting, renal consult for JU. pt with baseline cr 0.9-1.1 consistent with CKD [address] abdomen also showing pneumoperitoneum concerns for perforate viscus Denies OTC/herbal meds or NSAIDs No recent iodinated contrast exposure. No obvious episodes of low BP. ROS: Cardiovascular: No chest pain. Pulmonary: No shortness of breath Gastrointestinal: c/o abdominal pain c/o nausea. c/o vomiting. Genitourinary: No pain while urinating. Denies blood in urine. All other negative except as mentioned in HPI Physical Examination: General Appearance: uncomfortable, in no acute respiratory distress, co- operative . ill appearing Vitals reviewed and noted as below Head; Atraumatic, normocephalic ENT: no ulcers no thrush. Tongue is midline/DRY. Oropharynx: no rash or ulcers. EYES: Pupils are equal, round and reactive to light accommodation. Eye muscles and extraocular movement intact. Sclera is anicteric. Neck; supple no lymphadenopathy, no thyromegaly or bruit Lungs: Normal respiratory rate/effort. Breath sounds bilateral equal and clear Heart: Normal rate. s1s2 normal. No rub or gallop. Extremities: no edema. No varicose veins Neurological: Patient is alert, awake and oriented to person, place and time. No focal deficit. Strength bilateral appropriate and equal Skin: Warm and dry. Normal turgor. No rash. Palpitation: Normal elasticity for age Abdomen: Abdomen is soft. Bowel sounds +. There is marked lower abdominal tenderness with guarding no rigidity no organomegaly Psych: limited insight and normal affect/mood MSK: no joint tenderness or swelling. Digits and nails normal, no deformity : kidney or bladder not palpable Labs/imaging reviewed. Past medical history, past surgical history, family history, social history, allergy reviewed and noted as below Family hx: no hx of CKD. 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 echo oct 27; normal lvef with moderate AI Past Patient History - Infectious Disease Hx of Infectious Diseases: None - Past Medical History & Family History Past Medical History?: Yes - Past Social History Smoking Status: Former Smoker - CARDIAC Hx Hypertension: Yes - MUSCULOSKELETAL/RHEUMATOLOGICAL Hx Falls: No - PSYCHIATRIC Hx Substance Use: No - SURGICAL HISTORY Hx Surgeries: No - ANESTHESIA Hx Anesthesia: No Meds Allergies/Adverse Reactions: Allergies Allergy/AdvReac Type Severity Reaction Status Date / Time cat dander Allergy RASH Verified 07/19/18 14:53 - Medications Medications: Current Medications Albuterol Sulfate (Albuterol 0.042% Inhal Daisha (1.25mg/3ml) Ud) 1.25 mg INH RQ6 PRN PRN Reason: Shortness of Breath Amlodipine Besylate (Norvasc) 10 mg PO DAILY [facility] Last Admin: 08/11/18 10:00 Dose: 10 mg Aspirin (Aspirin Chewable) 81 mg PO DAILY [facility] Last Admin: 08/11/18 10:00 Dose: 81 mg Fluticasone/Vilanterol (Breo Ellipta 100-25 Mcg Inh) 1 puff INH RQD [facility] Last Admin: 08/11/18 08:27 Dose: Not Given Heparin Sodium (Porcine) (Heparin) 5,000 units SC Q12 [facility] Last Admin: 08/11/18 10:00 Dose: 5,000 units Meropenem 500 mg/ Sodium (Chloride) 100 mls @ 100 mls/hr IVPB Q8H [facility]; Protocol Last Admin: 08/11/18 14:26 Dose: 100 mls/hr Sodium Chloride (Sodium Chloride 0.9%) 1,000 mls @ 100 mls/hr IV .Q10H [facility] Last Admin: 08/11/18 15:05 Dose: 100 mls/hr Influenza Virus Vaccine (Fluzone Quad [id number]) 60 mcg IM .ONCE ONE Stop: 08/12/18 10:01 Metoprolol Succinate (Toprol Xl) 50 mg PO DAILY [facility] Last Admin: 08/11/18 10:00 Dose: 50 mg Morphine Sulfate (Morphine) 4 mg IV Q6H PRN PRN Reason: Pain, moderate (4-7) Last Admin: 08/11/18 05:34 Dose: 4 mg Pantoprazole Sodium (Protonix Ec Tab) 40 mg PO DAILY [facility] Last Admin: 08/11/18 10:00 Dose: 40 mg Pneumococcal Polyvalent Vaccine (Pneumovax 23 Vaccine) 0.5 ml IM .ONCE ONE Stop: 08/12/18 10:01 Rosuvastatin Calcium (Crestor) 10 mg PO HS [facility] Last Admin: 08/10/18 22:00 Dose: 10 mg Results - Vital Signs Recent Vital Signs: Last Vital Signs Temp 97.6 F 08/11/18 08:45 Pulse 95 H 08/11/18 08:45 Resp 20 08/11/18 08:45 BP 107/67 08/11/18 08:45 Pulse Ox 95 08/11/18 08:45 - Labs Result Diagrams: 08/10/18 17:51 08/10/18 17:51 Labs: Laboratory Results - last 24 hr 08/10/18 08/10/18 08/10/18 17:51 17:51 18:26 WBC 20.5 H D RBC 3.49 L Hgb 10.0 L D Hct 31.4 L MCV 89.8 D MCH 28.7 MCHC 31.9 L RDW 13.6 Plt Count 553 H D MPV 7.8 Neut % (Auto) 85.6 H Lymph % (Auto) 6.5 L [place] % (Auto) 7.0 Eos % (Auto) 0.5 Baso % (Auto) 0.4 Neut # (Auto) 17.6 H Lymph # (Auto) 1.3 [place] # (Auto) 1.4 H Eos # (Auto) 0.1 Baso # (Auto) 0.1 Neutrophils % (Manual) 78 H Band Neutrophils % 4 H Lymphocytes % (Manual) 13 L Monocytes % (Manual) 4 Eosinophils % (Manual) 1 Platelet Estimate Markedly increased H pO2 23 L VBG pH 7.32 VBG pCO2 39 L VBG HCO3 18.8 VBG Total CO2 21.3 L VBG O2 Sat (Calc) 38.5 L VBG Base Excess -5.6 L VBG Potassium 4.4 Glucose 123 H Lactate 2.1 Sodium 139 139.0 Potassium 5.0 Chloride 103 110.0 H Carbon Dioxide 19 L Anion Gap 21 H BUN 50 H Creatinine 2.7 H Est GFR ( Amer) 20 Est GFR (Non-Af Amer) 17 Random Glucose 136 H Calcium 9.3 Total Bilirubin 0.6 AST 42 H D ALT 64 H D Alkaline Phosphatase 189 H D Total Protein 7.2 Albumin 3.5 D Globulin 3.7 Albumin/Globulin Ratio 0.9 L Venous Blood Potassium 4.4 Urine Color Urine Clarity Urine pH Ur Specific [place] Urine Protein Urine Glucose (UA) Urine Ketones Urine Blood Urine Nitrate Urine Bilirubin Urine Urobilinogen Ur Leukocyte Esterase Urine WBC (Auto) Urine RBC (Auto) Urine WBC Clumps (Auto) Urine Bacteria Hyaline Casts 08/10/18 18:43 WBC RBC Hgb Hct MCV MCH MCHC RDW Plt Count MPV Neut % (Auto) Lymph % (Auto) [place] % (Auto) Eos % (Auto) Baso % (Auto) Neut # (Auto) Lymph # (Auto) [place] # (Auto) Eos # (Auto) Baso # (Auto) Neutrophils % (Manual) Band Neutrophils % Lymphocytes % (Manual) Monocytes % (Manual) Eosinophils % (Manual) Platelet Estimate pO2 VBG pH VBG pCO2 VBG HCO3 VBG Total CO2 VBG O2 Sat (Calc) VBG Base Excess VBG Potassium Glucose Lactate Sodium Potassium Chloride Carbon Dioxide Anion Gap BUN Creatinine Est GFR ( Amer) Est GFR (Non-Af Amer) Random Glucose Calcium Total Bilirubin AST ALT Alkaline Phosphatase Total Protein Albumin Globulin Albumin/Globulin Ratio Venous Blood Potassium Urine Color Yellow Urine Clarity Hazy Urine pH 6.0 Ur Specific [place] 1.009 Urine Protein 2+ H Urine Glucose (UA) Normal Urine Ketones Negative Urine Blood 3+ H Urine Nitrate Negative Urine Bilirubin Negative Urine Urobilinogen Normal Ur Leukocyte Esterase 3+ H Urine WBC (Auto) 115 H Urine RBC (Auto) 79 H Urine WBC Clumps (Auto) Many H Urine Bacteria Many H Hyaline Casts 0-2
[2018-08-11 16:01] LABS: ABG ALLEN TEST POS; ARTERIAL BLOOD GAS HCO3 18.9 mmol/L (21-28); ARTERIAL BLOOD GAS O2 SAT 95.8 % (95-98); ARTERIAL BLOOD GAS PCO2 24 mm/Hg (35-45); ARTERIAL BLOOD GAS PH 7.41 (7.35-7.45); ARTERIAL BLOOD GAS PO2 77 mm/Hg (80-100); ARTERIAL BLOOD GAS TCO2 15.9 mmol/L (22-28)
--- NOTE | 2018-08-11 16:19 | RAD ---
Date of service: 08/11/2018 HISTORY: pre-op COMPARISON: 10/20/2017. FINDINGS: LUNGS: The lungs are hyperinflated and there is peribronchial thickening with chronic changes in both lungs. There is linear atelectasis/scarring in the right lung base. There is mild pulmonary venous congestion. PLEURA: No pleural effusions or pneumothorax. CARDIOVASCULAR: The heart is normal in size. There is prominent central vasculature. Atherosclerotic aortic arch calcifications are present. OSSEOUS STRUCTURES: Within normal limits for the patient's age. VISUALIZED UPPER ABDOMEN: Normal. OTHER FINDINGS: None. IMPRESSION: No active pulmonary disease. COPD. Mild pulmonary venous congestion and prominent central vasculature P
[2018-08-11 16:39] LABS: BASO % 0.1 % (0.0-2.0); EOS % 0.1 % (0.0-4.0); HEMOGLOBIN 9.8 g/dL (11.0-16.0); LYMPH # 0.7 K/uL (1.0-4.3); LYMPH % 2.3 % (20.0-40.0); MEAN CORPUSCULAR HGB CONC 32.2 g/dL (33.0-37.0); MEAN PLATELET VOLUME 8.1 fL (7.2-11.7); MONO # 0.4 K/uL (0.0-0.8); MONO % 1.3 % (0.0-10.0); NEUT # 28.2 K/uL (1.8-7.0); NEUT % 96.2 % (50.0-75.0); PLATELET COUNT 523 K/uL (130-400); RBC 3.38 Mil/uL (3.80-5.20); RED CELL DISTRIBUTION WIDTH 13.6 % (11.5-14.5); WHITE BLOOD COUNT 29.3 K/uL (4.8-10.8)
[2018-08-11] MEDS ORDERED: Propofol 10 mg/ml Inj (20 ML) ONE (16:45)
[2018-08-11] MEDS ORDERED: Rocuronium 10 mg/ml (5 ml) ONE (16:50)
[2018-08-11] MEDS ORDERED: metroNIDAZOLE IV 500 mg/100 ml 500 MG/100 ML BAG ONE (17:02)
[2018-08-11 17:08] LABS: ALB/GLOB RATIO 0.9 (1.0-2.1); ALBUMIN 2.9 g/dL (3.5-5.0); CALCIUM 8.5 mg/dl (8.6-10.4)
[2018-08-11] MEDS ORDERED: Phenylephrine 10 mg/ml Inj ONE (17:24)
[2018-08-11 17:30] LABS: BANDS 76 % (0-2); LYMPHOCYTE 2 % (20-40); MONOCYTE 7 % (0-10); NEUTROPHIL 15 % (50-75); TOTAL CELLS COUNTED 100
[2018-08-11 17:31] LABS: HYPOCHROMIC SLIGHT; PLATELET ESTIMATE INCREASED (NORMAL); POLYCHROMIC SLIGHT
[2018-08-11 17:32] LABS: BURR CELLS SLIGHT
[2018-08-11] MEDS ORDERED: Neostigmine Methylsulfate 3mg/3ml Syringe IV ONE (18:06)
[2018-08-11 18:15] LABS: ARTERIAL BLOOD GAS HCO3 15.1 mmol/L (21-28); ARTERIAL BLOOD GAS O2 SAT 97.1 % (95-98); ARTERIAL BLOOD GAS PCO2 42 mm/Hg (35-45); ARTERIAL BLOOD GAS PH 7.17 (7.35-7.45); ARTERIAL BLOOD GAS PO2 267 mm/Hg (80-100); ARTERIAL BLOOD GAS TCO2 16.6 mmol/L (22-28)
[2018-08-11 18:21] LABS: INR 1.8; PROTHROMBIN TIME 19.8 SECONDS (9.7-12.2)
[2018-08-11] MEDS ORDERED: Bacitracin Ointment 30 GM TUBE ONE (18:25)
[2018-08-11 18:26] LABS: HEMOGLOBIN 8.2 g/dL (11.0-16.0); MEAN CELL VOLUME 90.2 fL (81.0-99.0); MEAN CORPUSCULAR HEMOGLOBIN 29.2 pg (27.0-31.0); MEAN CORPUSCULAR HGB CONC 32.4 g/dL (33.0-37.0); RBC 2.81 Mil/uL (3.80-5.20); RED CELL DISTRIBUTION WIDTH 13.8 % (11.5-14.5); WHITE BLOOD COUNT 28.8 K/uL (4.8-10.8)
--- NOTE | 2018-08-11 19:21 | PCM.SURG1 ---
Surgeon's Initial Post Op Note - Surgeon's Notes Surgeon: Dr. Swan Exercise Equipment Repair Technician: Dr. Rogers Type of Anesthesia: General Endo Anesthesia Administered By: Dr. 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 Adhesions released and pt found to have bladder perforation. No distinct colon or bowel perforation identified. Post-Operative Diagnosis: Colovesicular fistula, bladder perforation, purulent perotonitis Operation Performed: Exploratory Laparotomy, repair of bladder perforation, partial sigmoid resection with end colostomy Specimen/Specimens Removed: segment of sigmoid colon Estimated Blood Loss: EBL {In ML}: 100 Blood Products Given: N/A Drains Used: Luis Post-Op Condition: Good Date of Surgery/Procedure: 08/11/18 Time of Surgery/Procedure: 19:24
[2018-08-11] MEDS: Albuterol-Ipratrop 3 mg / 0.5 (3 ml) UD INH SCH (19:30)
[2018-08-11] MEDS: Sodium Chloride 0.9% 1,000 ML IV SCH (19:31)
--- NOTE | 2018-08-11 19:32 | CP.PCM.CON ---
History of Present Illness - History of Present Illness History of Present Illness: Chief complaint: Postoperative, exploratory laparotomy. HPI: Patient is a 88-year-old female with a history of COPD, hypertension recently being treated for urinary tract infection, admitted yesterday to the hospital with frequent episodes of watery stools, renal insufficiency, found to have pneumoperitoneum, and a suspected perforated viscus, and also enterovesical fistula. Patient underwent a laparotomy, found to have fistula connecting bladder and sigmoid. Patient underwent bladder repair, and also colostomy and sigmoid resection. Patient has a peritoneal significant collection of purulent material. In the operating room patient disorder fluid, also has some urine output. Patient is currently intubated. Patient is awake and responding at this time. On ventilator. Past medical history: COPD, hypertension Allergy no known drug allergy Personal history smoker in the past. Review of system: Currently on ventilator, awake and responding. Postoperative abdomen. Fish catheter present, colostomy present On examination: On ventilator. Vital signs: 108 bpm 91% 133/57 Chest bilateral good air entry. Regular heart sound. Abdominal postoperative. Chest x-ray showing ET tube in position, NG tube in position, bilateral COPD changes in the lungs noted chronic Labs currently pending. Blood gas analysis showing evidence of medical acidosis, and also mild elevation of the lactate noted and a repeat labs currently pending CXR- repeat showing ET in position RT UL mass like lesion noted Assessment and recommendation: Patient is a 88-year-old female with a history of COPD, hypertension admitted with urinary tract infection, complicated with the suspected visceral perforation, enterovesical fistula, and significant peritonitis. Patient has a history of ESBL Escherichia coli. Infectious disease on the case. Acute renal insufficiency. Overall prognosis is poor Status post bladder repair. Status post colostomy. Will continue the ventilator. IV fluid IV hydration. His resuscitation. Blood transfusion if needed. Bronchodilators. DVT GI prophylaxis and will follow the patient will get CT lung Past Patient History - Infectious Disease Hx of Infectious Diseases: None - Past Medical History & Family History Past Medical History?: Yes - Past Social History Smoking Status: Former Smoker - CARDIAC Hx Hypertension: Yes - MUSCULOSKELETAL/RHEUMATOLOGICAL Hx Falls: No - PSYCHIATRIC Hx Substance Use: No - SURGICAL HISTORY Hx Surgeries: No - ANESTHESIA Hx Anesthesia: No Meds Allergies/Adverse Reactions: Allergies Allergy/AdvReac Type Severity Reaction Status Date / Time cat dander Allergy RASH Verified 07/19/18 14:53 - Medications Medications: Current Medications Albuterol/Ipratropium (Duoneb 3 Mg/0.5 Mg (3 Ml) Ud) 3 ml INH RQ6 JOHN Aspirin (Aspirin Chewable) 81 mg PO DAILY [facility] Last Admin: 08/11/18 10:00 Dose: 81 mg Heparin Sodium (Porcine) (Heparin) 5,000 units SC Q12 JOHN Last Admin: 08/11/18 10:00 Dose: 5,000 units Hydromorphone HCl (Dilaudid) 0.5 mg IVP Q6H PRN PRN Reason: Pain, moderate (4-7) Meropenem 500 mg/ Sodium (Chloride) 100 mls @ 100 mls/hr IVPB Q8H [facility]; Protocol Last Admin: 08/11/18 14:26 Dose: 100 mls/hr Sodium Chloride (Sodium Chloride 0.9%) 1,000 mls @ 150 mls/hr IV .Q6H40M [facility] Fentanyl Citrate 2,500 mcg/ (Sodium Chloride) 250 mls @ 11.79 mls/hr IV .[id number] [facility]; Protocol Influenza Virus Vaccine (Fluzone Quad [id number]) 60 mcg IM .ONCE ONE Stop: 08/12/18 10:01 Lorazepam (Ativan) 2 mg IVP Q4 PRN PRN Reason: Restlessness Last Admin: 08/11/18 19:29 Dose: 2 mg Pantoprazole Sodium (Protonix Inj) 40 mg IVP DAILY [facility] Pneumococcal Polyvalent Vaccine (Pneumovax 23 Vaccine) 0.5 ml IM .ONCE ONE Stop: 08/12/18 10:01 Results - Vital Signs Recent Vital Signs: Last Vital Signs Temp 97.4 F L 08/11/18 16:00 Pulse 91 H 08/11/18 16:00 Resp 18 08/11/18 16:00 BP 100/61 08/11/18 16:00 Pulse Ox 95 08/11/18 16:00 - Labs Result Diagrams: 08/11/18 18:23 08/11/18 16:32 Labs: Laboratory Results - last 24 hr 08/11/18 08/11/18 08/11/18 15:56 16:32 16:32 WBC 29.3 H RBC 3.38 L Hgb 9.8 L Hct 30.4 L MCV 90.0 MCH 29.0 MCHC 32.2 L RDW 13.6 Plt Count 523 H MPV 8.1 Neut % (Auto) 96.2 H Lymph % (Auto) 2.3 L [place] % (Auto) 1.3 Eos % (Auto) 0.1 Baso % (Auto) 0.1 Neut # (Auto) 28.2 H Lymph # (Auto) 0.7 L [place] # (Auto) 0.4 Eos # (Auto) 0.0 Baso # (Auto) 0.0 Neutrophils % (Manual) 15 L Band Neutrophils % 76 H* Lymphocytes % (Manual) 2 L Monocytes % (Manual) 7 Platelet Estimate Increased H Polychromasia Slight Hypochromasia (manual) Slight Hanna Cells Slight PT INR APTT Puncture Site Rr pCO2 24 L pO2 77 L HCO3 18.9 L ABG pH 7.41 ABG Total CO2 15.9 L ABG O2 Saturation 95.8 ABG Base Excess -7.6 L Mathew Test Pos ABG Potassium 3.6 A-a O2 Difference 150.0 Respiratory Index 1.9 Sodium 144.0 142 Chloride 116.0 H 113 H Glucose 98 Lactate 1.4 Liter Flow 4.0 FiO2 36.0 Crit Value Called To Crit Value Called By Crit Value Read Back Blood Gas Notified Time Potassium 4.2 Carbon Dioxide 17 L Anion Gap 16 BUN 48 H Creatinine 1.9 H Est GFR ( Amer) 30 Est GFR (Non-Af Amer) 25 Random Glucose 104 Calcium 8.5 L Phosphorus 6.8 H Magnesium 1.7 Total Bilirubin 0.6 AST 33 ALT 47 Alkaline Phosphatase 176 H Total Protein 6.3 Albumin 2.9 L Globulin 3.4 Albumin/Globulin Ratio 0.9 L Arterial Blood Potassium 3.6 Blood Type Blood Type Confirm Antibody Screen 08/11/18 08/11/18 08/11/18 16:32 18:10 18:16 WBC RBC Hgb Hct MCV MCH MCHC RDW Plt Count MPV Neut % (Auto) Lymph % (Auto) [place] % (Auto) Eos % (Auto) Baso % (Auto) Neut # (Auto) Lymph # (Auto) [place] # (Auto) Eos # (Auto) Baso # (Auto) Neutrophils % (Manual) Band Neutrophils % Lymphocytes % (Manual) Monocytes % (Manual) Platelet Estimate Polychromasia Hypochromasia (manual) Hanna Cells PT 19.8 H INR 1.8 APTT 28 Puncture Site Na pCO2 42 pO2 267 H HCO3 15.1 L ABG pH 7.17 L* ABG Total CO2 16.6 L ABG O2 Saturation 97.1 ABG Base Excess -12.7 L Mathew Test Na ABG Potassium 4.3 A-a O2 Difference Respiratory Index Sodium 141.0 Chloride 114.0 H Glucose 104 Lactate 4.1 H* Liter Flow FiO2 Crit Value Called To Or Crit Value Called By Rei vaughn Crit Value Read Back Y Blood Gas Notified Time 1814 Potassium Carbon Dioxide Anion Gap BUN Creatinine Est GFR ( Amer) Est GFR (Non-Af Amer) Random Glucose Calcium Phosphorus Magnesium Total Bilirubin AST ALT Alkaline Phosphatase Total Protein Albumin Globulin Albumin/Globulin Ratio Arterial Blood Potassium 4.3 Blood Type AB POSITIVE Blood Type Confirm AB POSITIVE Antibody Screen Negative 08/11/18 18:23 WBC 28.8 H RBC 2.81 L Hgb 8.2 L Hct 25.4 L MCV 90.2 MCH 29.2 MCHC 32.4 L RDW 13.8 Plt Count 456 H MPV 8.0 Neut % (Auto) Lymph % (Auto) [place] % (Auto) Eos % (Auto) Baso % (Auto) Neut # (Auto) Lymph # (Auto) [place] # (Auto) Eos # (Auto) Baso # (Auto) Neutrophils % (Manual) Band Neutrophils % Lymphocytes % (Manual) Monocytes % (Manual) Platelet Estimate Polychromasia Hypochromasia (manual) Hanna Cells PT INR APTT Puncture Site pCO2 pO2 HCO3 ABG pH ABG Total CO2 ABG O2 Saturation ABG Base Excess Mathew Test ABG Potassium A-a O2 Difference Respiratory Index Sodium Chloride Glucose Lactate Liter Flow FiO2 Crit Value Called To Crit Value Called By Crit Value Read Back Blood Gas Notified Time Potassium Carbon Dioxide Anion Gap BUN Creatinine Est GFR ( Amer) Est GFR (Non-Af Amer) Random Glucose Calcium Phosphorus Magnesium Total Bilirubin AST ALT Alkaline Phosphatase Total Protein Albumin Globulin Albumin/Globulin Ratio Arterial Blood Potassium Blood Type Blood Type Confirm Antibody Screen
--- NOTE | 2018-08-11 19:33 | CP.PCM.PN ---
Subjective - Date & Time of Evaluation Date of Evaluation: 08/11/18 Time of Evaluation: 08:00 - Subjective Subjective: EVENTS NOTED HX OF RECURRENT UTI ADMITTED WITH ABD / PELVIC PAIN CT DONE SHOWED AIR IN PELVIS S/P OR REPAIR DR COLLINS Objective - Vital Signs/Intake and Output Vital Signs (last 24 hours): Temp Pulse Resp BP Pulse Ox 97.4 F L 91 H 18 100/61 95 08/11/18 16:00 08/11/18 16:00 08/11/18 16:00 08/11/18 16:00 08/11/18 16:00 Intake and Output: 08/11/18 08/12/18 18:59 06:59 Intake Total 4400 Output Total 575 Balance 3825 - Medications Medications: Current Medications Albuterol/Ipratropium (Duoneb 3 Mg/0.5 Mg (3 Ml) Ud) 3 ml INH RQ6 JOHN Aspirin (Aspirin Chewable) 81 mg PO DAILY [facility] Last Admin: 08/11/18 10:00 Dose: 81 mg Heparin Sodium (Porcine) (Heparin) 5,000 units SC Q12 JOHN Last Admin: 08/11/18 10:00 Dose: 5,000 units Hydromorphone HCl (Dilaudid) 0.5 mg IVP Q6H PRN PRN Reason: Pain, moderate (4-7) Meropenem 500 mg/ Sodium (Chloride) 100 mls @ 100 mls/hr IVPB Q8H [facility]; Protocol Last Admin: 08/11/18 14:26 Dose: 100 mls/hr Sodium Chloride (Sodium Chloride 0.9%) 1,000 mls @ 150 mls/hr IV .Q6H40M JOHN Fentanyl Citrate 2,500 mcg/ (Sodium Chloride) 250 mls @ 11.79 mls/hr IV .[id number] [facility]; Protocol Influenza Virus Vaccine (Fluzone Quad [id number]) 60 mcg IM .ONCE ONE Stop: 08/12/18 10:01 Lorazepam (Ativan) 2 mg IVP Q4 PRN PRN Reason: Restlessness Last Admin: 08/11/18 19:29 Dose: 2 mg Pantoprazole Sodium (Protonix Inj) 40 mg IVP DAILY [facility] Pneumococcal Polyvalent Vaccine (Pneumovax 23 Vaccine) 0.5 ml IM .ONCE ONE Stop: 11/03/18 10:01 - Labs Labs: 08/11/18 18:23 08/11/18 16:32 PT 19.8 SECONDS (9.7-12.2) H 08/11/18 18:16 INR 1.8 08/11/18 18:16 APTT 28 SECONDS (21-34) 08/11/18 18:16 - Constitutional Appears: Confused, Cachectic, Chronically Ill - Head Exam Head Exam: NORMOCEPHALIC - Eye Exam Eye Exam: PERRL. absent: Scleral icterus - ENT Exam ENT Exam: Mucous Membranes Dry - Neck Exam Neck Exam: absent: Lymphadenopathy - Respiratory Exam Respiratory Exam: Decreased Breath Sounds - Cardiovascular Exam Cardiovascular Exam: REGULAR RHYTHM - GI/Abdominal Exam GI & Abdominal Exam: Distended Assessment and Plan (1) Acute renal insufficiency Status: Acute (2) Dehydration Status: Acute (3) History of ESBL E. coli infection Status: Acute (4) UTI (urinary tract infection) Status: Acute (5) COPD exacerbation Status: Acute (6) [place]-vesical fistula Status: Acute - Assessment and Plan (Free Text) Assessment: CONT EMPIRIC IV ANTIBIOTICS
[2018-08-11 20:15] LABS: ARTERIAL BLOOD GAS HCO3 16.9 mmol/L (21-28); ARTERIAL BLOOD GAS O2 SAT 96.2 % (95-98); ARTERIAL BLOOD GAS PCO2 28 mm/Hg (35-45); ARTERIAL BLOOD GAS PH 7.32 (7.35-7.45); ARTERIAL BLOOD GAS PO2 82 mm/Hg (80-100); ARTERIAL BLOOD GAS TCO2 15.3 mmol/L (22-28)
[2018-08-12] MEDS: Albuterol-Ipratrop 3 mg / 0.5 (3 ml) UD INH SCH ×4 (01:27→19:36)
[2018-08-12] MEDS: Sodium Chloride 0.9% 1,000 ML IV SCH ×3 (02:33→09:00)
[2018-08-12] MEDS: Meropenem 500 MG in Sodium Chloride 0.9% 100 ML IVPB SCH ×3 (04:13→21:32)
[2018-08-12 05:51] LABS: ABG ALLEN TEST POS; ARTERIAL BLOOD GAS HEMOGLOBIN 9.6 g/dL (11.7-17.4); ARTERIAL BLOOD GAS O2 SAT 96.8 % (95-98); ARTERIAL BLOOD GAS PCO2 32 mm/Hg (35-45); ARTERIAL BLOOD GAS PH 7.34 (7.35-7.45); ARTERIAL BLOOD GAS PO2 86 mm/Hg (80-100); ARTERIAL BLOOD GAS TCO2 18.3 mmol/L (22-28)
[2018-08-12 05:56] LABS: BASO % 0.1 % (0.0-2.0); HEMOGLOBIN 9.9 g/dL (11.0-16.0); LYMPH # 0.7 K/uL (1.0-4.3); LYMPH % 2.7 % (20.0-40.0); MEAN CELL VOLUME 86.6 fL (81.0-99.0); MEAN CORPUSCULAR HEMOGLOBIN 28.6 pg (27.0-31.0); MEAN CORPUSCULAR HGB CONC 33.1 g/dL (33.0-37.0); MEAN PLATELET VOLUME 8.3 fL (7.2-11.7); MONO # 0.4 K/uL (0.0-0.8); MONO % 1.6 % (0.0-10.0); NEUT # 25.6 K/uL (1.8-7.0); NEUT % 95.6 % (50.0-75.0); PLATELET COUNT 455 K/uL (130-400); RBC 3.45 Mil/uL (3.80-5.20); RED CELL DISTRIBUTION WIDTH 15.8 % (11.5-14.5); WHITE BLOOD COUNT 26.8 K/uL (4.8-10.8)
[2018-08-12 06:02] LABS: INR 1.9; PROTHROMBIN TIME 21.1 SECONDS (9.7-12.2)
--- NOTE | 2018-08-12 06:08 | OP ---
PROCEDURE DATE: 08/11/2018 PREOPERATIVE DIAGNOSIS: Free air under the diaphragm perforation. PROCEDURES PERFORMED: Exploratory laparotomy, repair of bladder perforation, and Jessica's procedure. SURGEON: Mike Swan Jr., MD. JOB COUNSELOR: Dr. Rogers. ANESTHESIOLOGIST: Dr. Villa. INDICATIONS OF THE PROCEDURE: The patient is an elderly woman admitted to the hospital with elevated white count, free air under the diaphragm, more tenderness in the lower portion of the abdomen. OPERATIVE FINDINGS: There was no evidence of gastric or duodenal perforation. There was no evidence of fluid over the liver. The omentum had draped over it all, and all the pus was trapped in the pelvis. Quickly after we mobilized the intestine, we immediately identified the bladder perforation, however, it was quite difficult to identify the exact area of perforation in the colon. So we resected the area that was adjacent to it without ever actually seeing the perforation. The proximal portion of the colon, transverse colon, and right colon were all inspected, and these were normal. A small bowel was run from top to bottom twice without any evidence of any perforation. So the area was adherent with the area of the suspected perforation, this was resected. The distal portion of the colon was left in the pelvis, and the other portions mobilezed out for the colostomy. We could not mobilize it a great deal so this is just above the skin level. Colostomy was approximately 2 cm beyond it. We then irrigated at the abdomen multiple times , fluid was gone. We went to the small bowel again to make sure there is no other injury and we checked again overall to make sure that there was nothing that were missing in terms of the site of perforation. After we had done this, we closed the abdomen with running interrupted sutures of Novolin and PDS, and partially closed the skin with skin clips. We brought out the colostomy in left lower quadrant. Cultures were taken of the proximal pelvis. There were no other unusual findings. Exploratory laparotomy, Jessica's procedure, repair of bladder perforation, Luis drain was left into the pelvis, brought out on the right side. Mike Swan Jr., MD cc: MD Cherie Wade MD RENEE
[2018-08-12 06:23] LABS: CK-MB 1.31 ng/mL (0.0-3.38); TROPONIN I 0.015 ng/mL (0.00-0.120)
[2018-08-12 06:28] LABS: ALBUMIN 2.6 g/dL (3.5-5.0); CALCIUM 7.2 mg/dl (8.6-10.4)
[2018-08-12 08:48] LABS: BANDS 40 % (0-2); LYMPHOCYTE 2 % (20-40); MONOCYTE 1 % (0-10); NEUTROPHIL 57 % (50-75); TOTAL CELLS COUNTED 100
--- NOTE | 2018-08-12 08:56 | RAD ---
Date of service: 08/12/2018 HISTORY: intubated COMPARISON: Portable chest 08/11/2018, 7:08 p.m.. FINDINGS: LUNGS: Endotracheal and nasogastric tubes do not appear significantly changed. Diminished pulmonary vascular congestion with limited residual noted. Stable cardiac silhouette. Left basilar atelectasis noted. Linear atelectasis right base. Trace left pleural effusion noted. No infiltrate or pleural effusion is seen at the right. No pneumothorax bilaterally. PLEURA: As above. CARDIOVASCULAR: Calcific atherosclerotic changes are seen related to the thoracic aorta. As above. OSSEOUS STRUCTURES: No significant abnormalities. VISUALIZED UPPER ABDOMEN: Normal. OTHER FINDINGS: None. IMPRESSION: Diminished pulmonary vascular congestion with left basilar atelectasis and trace of pleural effusion evident.
[2018-08-12 09:08] LABS: ANISOCYTOSIS SLIGHT; BURR CELLS SLIGHT; HYPOCHROMIC SLIGHT; PLATELET ESTIMATE INCREASED (NORMAL); POIKILOCYTOSIS SLIGHT; POLYCHROMIC SLIGHT; SMUDGE CELLS PRESENT; TOXIC GRANULATION PRESENT
[2018-08-12 09:09] LABS: OVALOCYTES SLIGHT; PLATELET CLUMPS PRESENT
--- NOTE | 2018-08-12 09:09 | CP.CCUPN ---
CCU Subjective - Physician Review Subjective (Free Text): Patient seen and examined at bedside. Patient intubated post OR. no fevers overnight, off pressors, tolerating CPAP Critical Care Time Spent (in minutes): 35 CCU Objective - Vital Signs / Intake & Output Vital Signs (Last 4 hours): Vital Signs Pulse Resp BP Pulse Ox 08/12/18 07:00 92/45 L 08/12/18 06:59 97 H 20 98 08/12/18 06:01 84/38 L 08/12/18 06:00 90 21 96 Intake and Output (Last 8hrs): Intake & Output 08/11/18 08/12/18 08/12/18 22:59 06:59 14:59 Intake Total 4773.6 1725.7 150 Output Total 970 455 80 Balance 3803.6 1270.7 70 Weight 131 lb 3.2 oz Intake: IV 4100 Intake, IV Amount 573.6 1400.7 150 Left Forearm 100 280 Right Antecubital 200 Right Distal Port Forearm 23.6 70.7 0 Right Proximal Port 250 1050 150 Forearm Oral 100 Blood Product 0 325 Red Blood Cells Cpd As1 0 325 Lr Unit [id number] Output: Gastric Amount 0 20 0 Right Nares 0 20 0 Drainage 30 60 30 Right Abdomen 30 60 30 Urine 940 375 50 Urethral (Fish) 665 375 50 Stool 0 Emesis 0 - Physical Exam Head: Positive for: Atraumatic, Normocephalic Pupils: Positive for: PERRL Mouth: Positive for: Moist Mucous Membranes Respiratory/Chest: Positive for: Good Air Exchange, Rales Cardiovascular: Positive for: Regular Rate and Rhythm, Normal S1, S2 Abdomen: Positive for: Other (decrease Bowel sounds, NG to suction) Lower Extremity: Positive for: Normal Inspection. Negative for: Edema Skin: Positive for: Warm - Medications Active Medications: Active Medications Generic Name Dose Route Start Last Admin Trade Name Freq PRN Reason Stop Dose Admin Albumin Human 25 gm 08/12/18 09:03 Albumin Human 25% (12.5 Gm/50 Ml) IV 08/12/18 09:04 ONCE ONE Albuterol/Ipratropium 3 ml 08/11/18 20:00 08/12/18 08:13 Duoneb 3 Mg/0.5 Mg (3 Ml) Ud INH 3 ml RQ6 JOHN Administration Aspirin 81 mg 08/11/18 10:00 08/11/18 10:00 Aspirin Chewable PO 81 mg DAILY JOHN Administration Heparin Sodium (Porcine) 5,000 units 08/11/18 10:00 08/11/18 10:00 Heparin SC 5,000 units Q12 JOHN Administration Hydromorphone HCl 0.5 mg 08/11/18 19:29 Dilaudid IVP Q6H PRN Pain, moderate (4-7) Meropenem 500 mg/ Sodium 100 mls @ 100 mls/hr 08/10/18 19:45 08/12/18 04:13 Chloride IVPB 100 mls/hr Q8H JOHN Administration Protocol Sodium Bicarbonate 150 meq/ 1,150 mls @ 50 mls/hr 08/12/18 09:15 Dextrose IV .Q23H [facility] Influenza Virus Vaccine 60 mcg 08/12/18 10:00 Fluzone Quad [id number] IM 08/12/18 10:01 .ONCE ONE Pantoprazole Sodium 40 mg 08/12/18 10:00 Protonix Inj IVP DAILY [facility] Pneumococcal Polyvalent Vaccine 0.5 ml 08/12/18 10:00 Pneumovax 23 Vaccine IM 08/12/18 10:01 .ONCE ONE - Patient Studies Lab Studies: Microbiology Studies 08/10/18 18:43 Urine Culture - Preliminary Urine,Catheterized Gram Negative [place] 08/11/18 19:37 Gram Stain - Final Other: Please Indicate 08/10/18 18:20 Blood Culture - Preliminary Blood NO GROWTH AFTER 24 HOURS 08/10/18 17:35 Blood Culture - Preliminary Blood NO GROWTH AFTER 24 HOURS Lab Studies 08/12/18 08/12/18 08/12/18 Range/Units 05:48 05:48 05:48 WBC 26.8 H (4.8-10.8) K/uL RBC 3.45 L (3.80-5.20) Mil/uL Hgb 9.9 L (11.0-16.0) g/dL Hct 29.9 L (34.0-47.0) % MCV 86.6 D (81.0-99.0) fL MCH 28.6 (27.0-31.0) pg MCHC 33.1 (33.0-37.0) g/dL RDW 15.8 H (11.5-14.5) % Plt Count 455 H (130-400) K/uL MPV 8.3 (7.2-11.7) fL Neut % (Auto) 95.6 H (50.0-75.0) % Lymph % (Auto) 2.7 L (20.0-40.0) % [place] % (Auto) 1.6 (0.0-10.0) % Eos % (Auto) 0.0 (0.0-4.0) % Baso % (Auto) 0.1 (0.0-2.0) % Neut # (Auto) 25.6 H (1.8-7.0) K/uL Lymph # (Auto) 0.7 L (1.0-4.3) K/uL [place] # (Auto) 0.4 (0.0-0.8) K/uL Eos # (Auto) 0.0 (0.0-0.7) K/uL Baso # (Auto) 0.0 (0.0-0.2) K/uL Neutrophils % (Manual) (50-75) % Band Neutrophils % (0-2) % Lymphocytes % (Manual) (20-40) % Monocytes % (Manual) (0-10) % Platelet Estimate (NORMAL) Polychromasia Hypochromasia (manual) Hanna Cells PT 21.1 H (9.7-12.2) SECONDS INR 1.9 APTT 28 (21-34) SECONDS Puncture Site pCO2 (35-45) mm/Hg pO2 (80-100) mm/Hg HCO3 (21-28) mmol/L ABG pH (7.35-7.45) ABG Total CO2 (22-28) mmol/L ABG O2 Saturation (95-98) % ABG Base Excess (-2.0-3.0) mmol/L ABG Hemoglobin (11.7-17.4) g/dL ABG Carboxyhemoglobin (0.5-1.5) % POC ABG HHb (Measured) (0.0-5.0) % ABG Methemoglobin (0.0-3.0) % Mathew Test ABG Potassium (3.6-5.2) mmol/L A-a O2 Difference mm/Hg Respiratory Index Hgb O2 Saturation (95.0-98.0) % Sodium (132-148) mmol/l Chloride (98-107) mmol/L Glucose (65-105) mg/dl Lactate (0.7-2.1) mmol/L Liter Flow Vent Mode Mechanical Rate FiO2 % Tidal Volume PEEP Crit Value Called To Crit Value Called By Crit Value Read Back Blood Gas Notified Time Potassium (3.6-5.2) mmol/L Carbon Dioxide (22-30) mmol/L Anion Gap (10-20) BUN (7-17) mg/dL Creatinine (0.7-1.2) mg/dL Est GFR ( Amer) Est GFR (Non-Af Amer) Random Glucose (65-105) mg/dL Calcium (8.6-10.4) mg/dl Phosphorus (2.5-4.5) mg/dL Magnesium (1.6-2.3) mg/dL Total Bilirubin (0.2-1.3) mg/dL AST (14-36) U/L ALT (9-52) U/L Alkaline Phosphatase (38-126) U/L Total Creatine Kinase (30-135) U/L CK-MB (Mass) (0.0-3.38) ng/mL Troponin I (0.00-0.120) ng/mL Total Protein (6.3-8.3) g/dL Albumin (3.5-5.0) g/dL Globulin (2.2-3.9) gm/dL Albumin/Globulin Ratio (1.0-2.1) 25-OH Vitamin D Total < 12.8 L (30.0-100.0) NG/ML Arterial Blood Potassium (3.6-5.2) mmol/L Blood Type Blood Type Confirm Antibody Screen 08/12/18 08/12/18 08/12/18 Range/Units 05:48 05:48 05:18 WBC (4.8-10.8) K/uL RBC (3.80-5.20) Mil/uL Hgb (11.0-16.0) g/dL Hct (34.0-47.0) % MCV (81.0-99.0) fL MCH (27.0-31.0) pg MCHC (33.0-37.0) g/dL RDW (11.5-14.5) % Plt Count (130-400) K/uL MPV (7.2-11.7) fL Neut % (Auto) (50.0-75.0) % Lymph % (Auto) (20.0-40.0) % [place] % (Auto) (0.0-10.0) % Eos % (Auto) (0.0-4.0) % Baso % (Auto) (0.0-2.0) % Neut # (Auto) (1.8-7.0) K/uL Lymph # (Auto) (1.0-4.3) K/uL [place] # (Auto) (0.0-0.8) K/uL Eos # (Auto) (0.0-0.7) K/uL Baso # (Auto) (0.0-0.2) K/uL Neutrophils % (Manual) (50-75) % Band Neutrophils % (0-2) % Lymphocytes % (Manual) (20-40) % Monocytes % (Manual) (0-10) % Platelet Estimate (NORMAL) Polychromasia Hypochromasia (manual) Hanna Cells PT (9.7-12.2) SECONDS INR APTT (21-34) SECONDS Puncture Site R rad pCO2 32 L (35-45) mm/Hg pO2 86 (80-100) mm/Hg HCO3 19.0 L (21-28) mmol/L ABG pH 7.34 L (7.35-7.45) ABG Total CO2 18.3 L (22-28) mmol/L ABG O2 Saturation 96.8 (95-98) % ABG Base Excess -7.6 L (-2.0-3.0) mmol/L ABG Hemoglobin 9.6 L (11.7-17.4) g/dL ABG Carboxyhemoglobin 0.6 (0.5-1.5) % POC ABG HHb (Measured) 3.2 (0.0-5.0) % ABG Methemoglobin 0.5 (0.0-3.0) % Mathew Test Pos ABG Potassium (3.6-5.2) mmol/L A-a O2 Difference 231.0 mm/Hg Respiratory Index 2.7 Hgb O2 Saturation 95.7 (95.0-98.0) % Sodium 143 (132-148) mmol/l Chloride 115 H (98-107) mmol/L Glucose (65-105) mg/dl Lactate (0.7-2.1) mmol/L Liter Flow Vent Mode Prvc Mechanical Rate 20 FiO2 50.0 % Tidal Volume 450 PEEP 5 Crit Value Called To Crit Value Called By Crit Value Read Back Blood Gas Notified Time Potassium 4.3 (3.6-5.2) mmol/L Carbon Dioxide 17 L (22-30) mmol/L Anion Gap 16 (10-20) BUN 38 H (7-17) mg/dL Creatinine 1.6 H (0.7-1.2) mg/dL Est GFR ( Amer) 37 Est GFR (Non-Af Amer) 30 Random Glucose 112 H (65-105) mg/dL Calcium 7.2 L (8.6-10.4) mg/dl Phosphorus 5.9 H (2.5-4.5) mg/dL Magnesium 1.5 L (1.6-2.3) mg/dL Total Bilirubin 0.9 (0.2-1.3) mg/dL AST 129 H D (14-36) U/L ALT 93 H D (9-52) U/L Alkaline Phosphatase 166 H (38-126) U/L Total Creatine Kinase 151 H (30-135) U/L CK-MB (Mass) 1.31 (0.0-3.38) ng/mL Troponin I 0.0150 (0.00-0.120) ng/mL Total Protein 5.2 L (6.3-8.3) g/dL Albumin 2.6 L (3.5-5.0) g/dL Globulin 2.7 (2.2-3.9) gm/dL Albumin/Globulin Ratio 1.0 (1.0-2.1) 25-OH Vitamin D Total (30.0-100.0) NG/ML Arterial Blood Potassium (3.6-5.2) mmol/L Blood Type Blood Type Confirm Antibody Screen 08/11/18 08/11/18 08/11/18 Range/Units 20:05 18:23 18:16 WBC 28.8 H (4.8-10.8) K/uL RBC 2.81 L (3.80-5.20) Mil/uL Hgb 8.2 L (11.0-16.0) g/dL Hct 25.4 L (34.0-47.0) % MCV 90.2 (81.0-99.0) fL MCH 29.2 (27.0-31.0) pg MCHC 32.4 L (33.0-37.0) g/dL RDW 13.8 (11.5-14.5) % Plt Count 456 H (130-400) K/uL MPV 8.0 (7.2-11.7) fL Neut % (Auto) (50.0-75.0) % Lymph % (Auto) (20.0-40.0) % [place] % (Auto) (0.0-10.0) % Eos % (Auto) (0.0-4.0) % Baso % (Auto) (0.0-2.0) % Neut # (Auto) (1.8-7.0) K/uL Lymph # (Auto) (1.0-4.3) K/uL [place] # (Auto) (0.0-0.8) K/uL Eos # (Auto) (0.0-0.7) K/uL Baso # (Auto) (0.0-0.2) K/uL Neutrophils % (Manual) (50-75) % Band Neutrophils % (0-2) % Lymphocytes % (Manual) (20-40) % Monocytes % (Manual) (0-10) % Platelet Estimate (NORMAL) Polychromasia Hypochromasia (manual) Hanna Cells PT 19.8 H (9.7-12.2) SECONDS INR 1.8 APTT 28 (21-34) SECONDS Puncture Site Rra pCO2 28 L (35-45) mm/Hg pO2 82 (80-100) mm/Hg HCO3 16.9 L (21-28) mmol/L ABG pH 7.32 L (7.35-7.45) ABG Total CO2 15.3 L (22-28) mmol/L ABG O2 Saturation 96.2 (95-98) % ABG Base Excess -10.2 L (-2.0-3.0) mmol/L ABG Hemoglobin (11.7-17.4) g/dL ABG Carboxyhemoglobin (0.5-1.5) % POC ABG HHb (Measured) (0.0-5.0) % ABG Methemoglobin (0.0-3.0) % Mathew Test Na ABG Potassium 4.2 (3.6-5.2) mmol/L A-a O2 Difference 240.0 mm/Hg Respiratory Index 2.9 Hgb O2 Saturation (95.0-98.0) % Sodium 144.0 (132-148) mmol/l Chloride 117.0 H (98-107) mmol/L Glucose 122 H (65-105) mg/dl Lactate 2.5 H (0.7-2.1) mmol/L Liter Flow Vent Mode Prvc Mechanical Rate 20 FiO2 50.0 % Tidal Volume 450 PEEP 5 Crit Value Called To Crit Value Called By Crit Value Read Back Blood Gas Notified Time Potassium (3.6-5.2) mmol/L Carbon Dioxide (22-30) mmol/L Anion Gap (10-20) BUN (7-17) mg/dL Creatinine (0.7-1.2) mg/dL Est GFR ( Amer) Est GFR (Non-Af Amer) Random Glucose (65-105) mg/dL Calcium (8.6-10.4) mg/dl Phosphorus (2.5-4.5) mg/dL Magnesium (1.6-2.3) mg/dL Total Bilirubin (0.2-1.3) mg/dL AST (14-36) U/L ALT (9-52) U/L Alkaline Phosphatase (38-126) U/L Total Creatine Kinase (30-135) U/L CK-MB (Mass) (0.0-3.38) ng/mL Troponin I (0.00-0.120) ng/mL Total Protein (6.3-8.3) g/dL Albumin (3.5-5.0) g/dL Globulin (2.2-3.9) gm/dL Albumin/Globulin Ratio (1.0-2.1) 25-OH Vitamin D Total (30.0-100.0) NG/ML Arterial Blood Potassium 4.2 (3.6-5.2) mmol/L Blood Type Blood Type Confirm Antibody Screen 08/11/18 08/11/18 08/11/18 Range/Units 18:10 16:32 16:32 WBC (4.8-10.8) K/uL RBC (3.80-5.20) Mil/uL Hgb (11.0-16.0) g/dL Hct (34.0-47.0) % MCV (81.0-99.0) fL MCH (27.0-31.0) pg MCHC (33.0-37.0) g/dL RDW (11.5-14.5) % Plt Count (130-400) K/uL MPV (7.2-11.7) fL Neut % (Auto) (50.0-75.0) % Lymph % (Auto) (20.0-40.0) % [place] % (Auto) (0.0-10.0) % Eos % (Auto) (0.0-4.0) % Baso % (Auto) (0.0-2.0) % Neut # (Auto) (1.8-7.0) K/uL Lymph # (Auto) (1.0-4.3) K/uL [place] # (Auto) (0.0-0.8) K/uL Eos # (Auto) (0.0-0.7) K/uL Baso # (Auto) (0.0-0.2) K/uL Neutrophils % (Manual) (50-75) % Band Neutrophils % (0-2) % Lymphocytes % (Manual) (20-40) % Monocytes % (Manual) (0-10) % Platelet Estimate (NORMAL) Polychromasia Hypochromasia (manual) Hanna Cells PT (9.7-12.2) SECONDS INR APTT (21-34) SECONDS Puncture Site Na pCO2 42 (35-45) mm/Hg pO2 267 H (80-100) mm/Hg HCO3 15.1 L (21-28) mmol/L ABG pH 7.17 L* (7.35-7.45) ABG Total CO2 16.6 L (22-28) mmol/L ABG O2 Saturation 97.1 (95-98) % ABG Base Excess -12.7 L (-2.0-3.0) mmol/L ABG Hemoglobin (11.7-17.4) g/dL ABG Carboxyhemoglobin (0.5-1.5) % POC ABG HHb (Measured) (0.0-5.0) % ABG Methemoglobin (0.0-3.0) % Mathew Test Na ABG Potassium 4.3 (3.6-5.2) mmol/L A-a O2 Difference mm/Hg Respiratory Index Hgb O2 Saturation (95.0-98.0) % Sodium 141.0 142 (132-148) mmol/l Chloride 114.0 H 113 H (98-107) mmol/L Glucose 104 (65-105) mg/dl Lactate 4.1 H* (0.7-2.1) mmol/L Liter Flow Vent Mode Mechanical Rate FiO2 % Tidal Volume PEEP Crit Value Called To Or Crit Value Called By Rei rt Crit Value Read Back Y Blood Gas Notified Time 1814 Potassium 4.2 (3.6-5.2) mmol/L Carbon Dioxide 17 L (22-30) mmol/L Anion Gap 16 (10-20) BUN 48 H (7-17) mg/dL Creatinine 1.9 H (0.7-1.2) mg/dL Est GFR ( Amer) 30 Est GFR (Non-Af Amer) 25 Random Glucose 104 (65-105) mg/dL Calcium 8.5 L (8.6-10.4) mg/dl Phosphorus 6.8 H (2.5-4.5) mg/dL Magnesium 1.7 (1.6-2.3) mg/dL Total Bilirubin 0.6 (0.2-1.3) mg/dL AST 33 (14-36) U/L ALT 47 (9-52) U/L Alkaline Phosphatase 176 H (38-126) U/L Total Creatine Kinase (30-135) U/L CK-MB (Mass) (0.0-3.38) ng/mL Troponin I (0.00-0.120) ng/mL Total Protein 6.3 (6.3-8.3) g/dL Albumin 2.9 L (3.5-5.0) g/dL Globulin 3.4 (2.2-3.9) gm/dL Albumin/Globulin Ratio 0.9 L (1.0-2.1) 25-OH Vitamin D Total (30.0-100.0) NG/ML Arterial Blood Potassium 4.3 (3.6-5.2) mmol/L Blood Type AB POSITIVE Blood Type Confirm AB POSITIVE Antibody Screen Negative 08/11/18 08/11/18 Range/Units 16:32 15:56 WBC 29.3 H (4.8-10.8) K/uL RBC 3.38 L (3.80-5.20) Mil/uL Hgb 9.8 L (11.0-16.0) g/dL Hct 30.4 L (34.0-47.0) % MCV 90.0 (81.0-99.0) fL MCH 29.0 (27.0-31.0) pg MCHC 32.2 L (33.0-37.0) g/dL RDW 13.6 (11.5-14.5) % Plt Count 523 H (130-400) K/uL MPV 8.1 (7.2-11.7) fL Neut % (Auto) 96.2 H (50.0-75.0) % Lymph % (Auto) 2.3 L (20.0-40.0) % [place] % (Auto) 1.3 (0.0-10.0) % Eos % (Auto) 0.1 (0.0-4.0) % Baso % (Auto) 0.1 (0.0-2.0) % Neut # (Auto) 28.2 H (1.8-7.0) K/uL Lymph # (Auto) 0.7 L (1.0-4.3) K/uL [place] # (Auto) 0.4 (0.0-0.8) K/uL Eos # (Auto) 0.0 (0.0-0.7) K/uL Baso # (Auto) 0.0 (0.0-0.2) K/uL Neutrophils % (Manual) 15 L (50-75) % Band Neutrophils % 76 H* (0-2) % Lymphocytes % (Manual) 2 L (20-40) % Monocytes % (Manual) 7 (0-10) % Platelet Estimate Increased H (NORMAL) Polychromasia Slight Hypochromasia (manual) Slight Hanna Cells Slight PT (9.7-12.2) SECONDS INR APTT (21-34) SECONDS Puncture Site Rr pCO2 24 L (35-45) mm/Hg pO2 77 L (80-100) mm/Hg HCO3 18.9 L (21-28) mmol/L ABG pH 7.41 (7.35-7.45) ABG Total CO2 15.9 L (22-28) mmol/L ABG O2 Saturation 95.8 (95-98) % ABG Base Excess -7.6 L (-2.0-3.0) mmol/L ABG Hemoglobin (11.7-17.4) g/dL ABG Carboxyhemoglobin (0.5-1.5) % POC ABG HHb (Measured) (0.0-5.0) % ABG Methemoglobin (0.0-3.0) % Mathew Test Pos ABG Potassium 3.6 (3.6-5.2) mmol/L A-a O2 Difference 150.0 mm/Hg Respiratory Index 1.9 Hgb O2 Saturation (95.0-98.0) % Sodium 144.0 (132-148) mmol/l Chloride 116.0 H (98-107) mmol/L Glucose 98 (65-105) mg/dl Lactate 1.4 (0.7-2.1) mmol/L Liter Flow 4.0 Vent Mode Mechanical Rate FiO2 36.0 % Tidal Volume PEEP Crit Value Called To Crit Value Called By Crit Value Read Back Blood Gas Notified Time Potassium (3.6-5.2) mmol/L Carbon Dioxide (22-30) mmol/L Anion Gap (10-20) BUN (7-17) mg/dL Creatinine (0.7-1.2) mg/dL Est GFR ( Amer) Est GFR (Non-Af Amer) Random Glucose (65-105) mg/dL Calcium (8.6-10.4) mg/dl Phosphorus (2.5-4.5) mg/dL Magnesium (1.6-2.3) mg/dL Total Bilirubin (0.2-1.3) mg/dL AST (14-36) U/L ALT (9-52) U/L Alkaline Phosphatase (38-126) U/L Total Creatine Kinase (30-135) U/L CK-MB (Mass) (0.0-3.38) ng/mL Troponin I (0.00-0.120) ng/mL Total Protein (6.3-8.3) g/dL Albumin (3.5-5.0) g/dL Globulin (2.2-3.9) gm/dL Albumin/Globulin Ratio (1.0-2.1) 25-OH Vitamin D Total (30.0-100.0) NG/ML Arterial Blood Potassium 3.6 (3.6-5.2) mmol/L Blood Type Blood Type Confirm Antibody Screen Laboratory Results - last 24 hr 08/11/18 08/11/18 08/11/18 15:56 16:32 16:32 WBC 29.3 H RBC 3.38 L Hgb 9.8 L Hct 30.4 L MCV 90.0 MCH 29.0 MCHC 32.2 L RDW 13.6 Plt Count 523 H MPV 8.1 Neut % (Auto) 96.2 H Lymph % (Auto) 2.3 L [place] % (Auto) 1.3 Eos % (Auto) 0.1 Baso % (Auto) 0.1 Neut # (Auto) 28.2 H Lymph # (Auto) 0.7 L [place] # (Auto) 0.4 Eos # (Auto) 0.0 Baso # (Auto) 0.0 Neutrophils % (Manual) 15 L Band Neutrophils % 76 H* Lymphocytes % (Manual) 2 L Monocytes % (Manual) 7 Platelet Estimate Increased H Polychromasia Slight Hypochromasia (manual) Slight Hilger Cells Slight PT INR APTT Puncture Site Rr pCO2 24 L pO2 77 L HCO3 18.9 L ABG pH 7.41 ABG Total CO2 15.9 L ABG O2 Saturation 95.8 ABG Base Excess -7.6 L ABG Hemoglobin ABG Carboxyhemoglobin POC ABG HHb (Measured) ABG Methemoglobin Mathew Test Pos ABG Potassium 3.6 A-a O2 Difference 150.0 Respiratory Index 1.9 Hgb O2 Saturation Sodium 144.0 142 Chloride 116.0 H 113 H Glucose 98 Lactate 1.4 Liter Flow 4.0 Vent Mode Mechanical Rate FiO2 36.0 Tidal Volume PEEP Crit Value Called To Crit Value Called By Crit Value Read Back Blood Gas Notified Time Potassium 4.2 Carbon Dioxide 17 L Anion Gap 16 BUN 48 H Creatinine 1.9 H Est GFR ( Amer) 30 Est GFR (Non-Af Amer) 25 Random Glucose 104 Calcium 8.5 L Phosphorus 6.8 H Magnesium 1.7 Total Bilirubin 0.6 AST 33 ALT 47 Alkaline Phosphatase 176 H Total Creatine Kinase CK-MB (Mass) Troponin I Total Protein 6.3 Albumin 2.9 L Globulin 3.4 Albumin/Globulin Ratio 0.9 L 25-OH Vitamin D Total Arterial Blood Potassium 3.6 Blood Type Blood Type Confirm Antibody Screen 08/11/18 08/11/18 08/11/18 16:32 18:10 18:16 WBC RBC Hgb Hct MCV MCH MCHC RDW Plt Count MPV Neut % (Auto) Lymph % (Auto) [place] % (Auto) Eos % (Auto) Baso % (Auto) Neut # (Auto) Lymph # (Auto) [place] # (Auto) Eos # (Auto) Baso # (Auto) Neutrophils % (Manual) Band Neutrophils % Lymphocytes % (Manual) Monocytes % (Manual) Platelet Estimate Polychromasia Hypochromasia (manual) Hanna Cells PT 19.8 H INR 1.8 APTT 28 Puncture Site Na pCO2 42 pO2 267 H HCO3 15.1 L ABG pH 7.17 L* ABG Total CO2 16.6 L ABG O2 Saturation 97.1 ABG Base Excess -12.7 L ABG Hemoglobin ABG Carboxyhemoglobin POC ABG HHb (Measured) ABG Methemoglobin Mathew Test Na ABG Potassium 4.3 A-a O2 Difference Respiratory Index Hgb O2 Saturation Sodium 141.0 Chloride 114.0 H Glucose 104 Lactate 4.1 H* Liter Flow Vent Mode Mechanical Rate FiO2 Tidal Volume PEEP Crit Value Called To Or Crit Value Called By Rei rt Crit Value Read Back Y Blood Gas Notified Time 1815 Potassium Carbon Dioxide Anion Gap BUN Creatinine Est GFR ( Amer) Est GFR (Non-Af Amer) Random Glucose Calcium Phosphorus Magnesium Total Bilirubin AST ALT Alkaline Phosphatase Total Creatine Kinase CK-MB (Mass) Troponin I Total Protein Albumin Globulin Albumin/Globulin Ratio 25-OH Vitamin D Total Arterial Blood Potassium 4.3 Blood Type AB POSITIVE Blood Type Confirm AB POSITIVE Antibody Screen Negative 08/11/18 08/11/18 08/12/18 18:23 20:05 05:18 WBC 28.8 H RBC 2.81 L Hgb 8.2 L Hct 25.4 L MCV 90.2 MCH 29.2 MCHC 32.4 L RDW 13.8 Plt Count 456 H MPV 8.0 Neut % (Auto) Lymph % (Auto) [place] % (Auto) Eos % (Auto) Baso % (Auto) Neut # (Auto) Lymph # (Auto) [place] # (Auto) Eos # (Auto) Baso # (Auto) Neutrophils % (Manual) Band Neutrophils % Lymphocytes % (Manual) Monocytes % (Manual) Platelet Estimate Polychromasia Hypochromasia (manual) Hanna Cells PT INR APTT Puncture Site Rra R rad pCO2 28 L 32 L pO2 82 86 HCO3 16.9 L 19.0 L ABG pH 7.32 L 7.34 L ABG Total CO2 15.3 L 18.3 L ABG O2 Saturation 96.2 96.8 ABG Base Excess -10.2 L -7.6 L ABG Hemoglobin 9.6 L ABG Carboxyhemoglobin 0.6 POC ABG HHb (Measured) 3.2 ABG Methemoglobin 0.5 Mathew Test Na Pos ABG Potassium 4.2 A-a O2 Difference 240.0 231.0 Respiratory Index 2.9 2.7 Hgb O2 Saturation 95.7 Sodium 144.0 Chloride 117.0 H Glucose 122 H Lactate 2.5 H Liter Flow Vent Mode Prvc Prvc Mechanical Rate 20 20 FiO2 50.0 50.0 Tidal Volume 450 450 PEEP 5 5 Crit Value Called To Crit Value Called By Crit Value Read Back Blood Gas Notified Time Potassium Carbon Dioxide Anion Gap BUN Creatinine Est GFR ( Amer) Est GFR (Non-Af Amer) Random Glucose Calcium Phosphorus Magnesium Total Bilirubin AST ALT Alkaline Phosphatase Total Creatine Kinase CK-MB (Mass) Troponin I Total Protein Albumin Globulin Albumin/Globulin Ratio 25-OH Vitamin D Total Arterial Blood Potassium 4.2 Blood Type Blood Type Confirm Antibody Screen 08/12/18 08/12/18 08/12/18 05:48 05:48 05:48 WBC RBC Hgb Hct MCV MCH MCHC RDW Plt Count MPV Neut % (Auto) Lymph % (Auto) [place] % (Auto) Eos % (Auto) Baso % (Auto) Neut # (Auto) Lymph # (Auto) [place] # (Auto) Eos # (Auto) Baso # (Auto) Neutrophils % (Manual) Band Neutrophils % Lymphocytes % (Manual) Monocytes % (Manual) Platelet Estimate Polychromasia Hypochromasia (manual) Hilger Cells PT INR APTT Puncture Site pCO2 pO2 HCO3 ABG pH ABG Total CO2 ABG O2 Saturation ABG Base Excess ABG Hemoglobin ABG Carboxyhemoglobin POC ABG HHb (Measured) ABG Methemoglobin Mathew Test ABG Potassium A-a O2 Difference Respiratory Index Hgb O2 Saturation Sodium 143 Chloride 115 H Glucose Lactate Liter Flow Vent Mode Mechanical Rate FiO2 Tidal Volume PEEP Crit Value Called To Crit Value Called By Crit Value Read Back Blood Gas Notified Time Potassium 4.3 Carbon Dioxide 17 L Anion Gap 16 BUN 38 H Creatinine 1.6 H Est GFR ( Amer) 37 Est GFR (Non-Af Amer) 30 Random Glucose 112 H Calcium 7.2 L Phosphorus 5.9 H Magnesium 1.5 L Total Bilirubin 0.9 AST 129 H D ALT 93 H D Alkaline Phosphatase 166 H Total Creatine Kinase 151 H CK-MB (Mass) 1.31 Troponin I 0.0150 Total Protein 5.2 L Albumin 2.6 L Globulin 2.7 Albumin/Globulin Ratio 1.0 25-OH Vitamin D Total < 12.8 L Arterial Blood Potassium Blood Type Blood Type Confirm Antibody Screen 08/12/18 08/12/18 05:48 05:48 WBC 26.8 H RBC 3.45 L Hgb 9.9 L Hct 29.9 L MCV 86.6 D MCH 28.6 MCHC 33.1 RDW 15.8 H Plt Count 455 H MPV 8.3 Neut % (Auto) 95.6 H Lymph % (Auto) 2.7 L [place] % (Auto) 1.6 Eos % (Auto) 0.0 Baso % (Auto) 0.1 Neut # (Auto) 25.6 H Lymph # (Auto) 0.7 L [place] # (Auto) 0.4 Eos # (Auto) 0.0 Baso # (Auto) 0.0 Neutrophils % (Manual) Band Neutrophils % Lymphocytes % (Manual) Monocytes % (Manual) Platelet Estimate Polychromasia Hypochromasia (manual) Hilger Cells PT 21.1 H INR 1.9 APTT 28 Puncture Site pCO2 pO2 HCO3 ABG pH ABG Total CO2 ABG O2 Saturation ABG Base Excess ABG Hemoglobin ABG Carboxyhemoglobin POC ABG HHb (Measured) ABG Methemoglobin Mathew Test ABG Potassium A-a O2 Difference Respiratory Index Hgb O2 Saturation Sodium Chloride Glucose Lactate Liter Flow Vent Mode Mechanical Rate FiO2 Tidal Volume PEEP Crit Value Called To Crit Value Called By Crit Value Read Back Blood Gas Notified Time Potassium Carbon Dioxide Anion Gap BUN Creatinine Est GFR ( Amer) Est GFR (Non-Af Amer) Random Glucose Calcium Phosphorus Magnesium Total Bilirubin AST ALT Alkaline Phosphatase Total Creatine Kinase CK-MB (Mass) Troponin I Total Protein Albumin Globulin Albumin/Globulin Ratio 25-OH Vitamin D Total Arterial Blood Potassium Blood Type Blood Type Confirm Antibody Screen EKG/Cardiology Studies: Cardiology / EKG Studies 08/11/18 15:41 EKG [ELECTROCARDIOGRAM] Stat Comment: Mode Of Transportation: Reason For Exam: pre-op Isolation: Contact 08/11/18 18:37 EKG [ELECTROCARDIOGRAM] Routine Comment: Mode Of Transportation: Reason For Exam: post-op Isolation: Contact Review of Systems - Review of Systems Systems not reviewed;Unavailable: Intubated Critical Care Progress Note - Nutrition Nutrition: Nutrition Category Date Time Status NPO Diet [DIET] Diets 08/11/18 Dinner Active Assessment/Plan - Assessment and Plan (Free Text) Assessment: POD #1 -Hypoxic respiratory failure: continue ventilation to keep spo2 > 92, continue bronchodilators, tolerating CPAP (when awake, extubate), RSI 40 -NG tube to suction (surgery to evaluate feeding) -GNR bacteremia:continue broad spectrum abx, serial lactic -Metabolic and respiratory acidosis: hypercholremic metabolic acidosis, continue IV bicarb, monitor urine output -JU: resolving with IVF, avoid nephrotoxic drugs -continue DVT/PUD ppx: heparin Sq/PUD ppx -BGM q6hrs, ISS prognosis guarded cc time 35 minutes - Date & Time Date: 08/12/18 Time: 09:09
[2018-08-12 09:10] LABS: SCHISTOCYTES SLIGHT
[2018-08-12] MEDS ORDERED: Albumin Human 25% (12.5 gm/50 ml) IV ONE (09:30)
[2018-08-12] MEDS ORDERED: Magnesium Sulfate 1 gm in D5W 1 GM/100 ML BAG IVPB ONE ×2 (09:30→16:00)
[2018-08-12] MEDS ORDERED: Influenza Vaccine 60 MCG/0.5 ML SYR (3 yr & up) IM ONE (10:00)
[2018-08-12] MEDS ORDERED: Sodium Bicarbonate 8.4% 150 MEQ in Dextrose 5% In Water 1,000 ML IV SCH (10:00)
[2018-08-12] MEDS ORDERED: Pneumococcal 23-Valent Vaccine IM ONE (10:00)
--- NOTE | 2018-08-12 10:28 | CP.PCM.PN ---
Subjective - Date & Time of Evaluation Date of Evaluation: 08/12/18 Time of Evaluation: 10:25 - Subjective Subjective: Surgery: Dr. Swan Pt seen and examined. s/p Ex-lap; POD#1. Pt continues to be intubated and sedated, however is responsive to painful stimuli. No fevers recorded overnight. Objective - Vital Signs/Intake and Output Vital Signs (last 24 hours): Temp Pulse Resp BP Pulse Ox 98.1 F 97 H 20 92/45 L 98 08/12/18 00:45 08/12/18 06:59 08/12/18 06:59 08/12/18 07:00 08/12/18 06:59 Intake and Output: 08/12/18 08/12/18 06:59 18:59 Intake Total 2099.3 150 Output Total 850 80 Balance 1249.3 70 - Medications Medications: Current Medications Albuterol/Ipratropium (Duoneb 3 Mg/0.5 Mg (3 Ml) Ud) 3 ml INH RQ6 [facility] Last Admin: 08/12/18 08:13 Dose: 3 ml Aspirin (Aspirin Chewable) 81 mg PO DAILY [facility] Last Admin: 08/11/18 10:00 Dose: 81 mg Heparin Sodium (Porcine) (Heparin) 5,000 units SC Q12 [facility] Last Admin: 08/11/18 10:00 Dose: 5,000 units Hydromorphone HCl (Dilaudid) 0.5 mg IVP Q6H PRN PRN Reason: Pain, moderate (4-7) Meropenem 500 mg/ Sodium (Chloride) 100 mls @ 100 mls/hr IVPB Q8H [facility]; Protocol Last Admin: 08/12/18 04:13 Dose: 100 mls/hr Sodium Bicarbonate 150 meq/ (Dextrose) 1,150 mls @ 50 mls/hr IV .Q23H [facility] Pantoprazole Sodium (Protonix Inj) 40 mg IVP DAILY [facility] - Labs Labs: 08/12/18 05:48 08/12/18 05:48 PT 21.1 SECONDS (9.7-12.2) H 08/12/18 05:48 INR 1.9 08/12/18 05:48 APTT 28 SECONDS (21-34) 08/12/18 05:48 - Constitutional Appears: Non-toxic - Head Exam Head Exam: ATRAUMATIC, NORMOCEPHALIC - ENT Exam Additional comments: ETT in place - Respiratory Exam Respiratory Exam: NORMAL BREATHING PATTERN - Cardiovascular Exam Cardiovascular Exam: Tachycardia - GI/Abdominal Exam GI & Abdominal Exam: Soft, Tenderness (around midline incision, C/D/I. Travon in place with serosang ouput ). absent: Distended, Guarding, Rebound - Extremities Exam Extremities Exam: absent: Pedal Edema - Skin Skin Exam: Dry, Warm Assessment and Plan - Assessment and Plan (Free Text) Assessment: 88F with perforated viscus s/p Ex-lap with repair of bladder perforation, sigmoid resection & end colostomy; POD#1 Plan: - wean off the ventilator and extubate when ready - cont to monitor strict Is&Os - champion to stay in place for 2-3 weeks - monitor travon and NGT outputs - monitor ostomy function - cont IV ABX - d/w Dr. Beny Rogers
--- NOTE | 2018-08-12 13:20 | RAD ---
Date of service: 08/11/2018 HISTORY: post-op COMPARISON: Portable chest 08/11/2018 4:04 p.m.. FINDINGS: LUNGS: Endotracheal tube is in placed with tip terminating 6.5 cm above the liz. A nasogastric tube is in place extending into the abdomen. Reticular changes suggests mild biapical fibrosis as well as the right perihilar region with linear atelectasis or fibrosis noted at the medial left base. Limited patchy density right perihilar region may reflect atelectasis or early infiltrate. No additional potential infiltrate bilaterally. PLEURA: Trace of pleural effusion not excluded. None is seen the right. No pneumothorax bilaterally. CARDIOVASCULAR: Calcific atherosclerotic changes are seen related to the thoracic aorta. Normal cardiac size. Borderline pulmonary vascular congestion. OSSEOUS STRUCTURES: No significant abnormalities. VISUALIZED UPPER ABDOMEN: Normal. OTHER FINDINGS: None. IMPRESSION: ET tube and NG tubes as discussed above. Borderline right perihilar infiltrate atelectasis and pulmonary vascular congestion. Bilateral fibrotic changes again evident.
--- NOTE | 2018-08-12 13:44 | CP.PCM.PN ---
Subjective - Date & Time of Evaluation Date of Evaluation: 08/12/18 Time of Evaluation: 10:30 - Subjective Subjective: clinically same Objective - Vital Signs/Intake and Output Vital Signs (last 24 hours): Temp Pulse Resp BP Pulse Ox 98.1 F 97 H 20 92/45 L 98 08/12/18 00:45 08/12/18 06:59 08/12/18 06:59 08/12/18 07:00 08/12/18 06:59 Intake and Output: 08/12/18 08/12/18 06:59 18:59 Intake Total 2099.3 150 Output Total 850 80 Balance 1249.3 70 - Medications Medications: Current Medications Albuterol/Ipratropium (Duoneb 3 Mg/0.5 Mg (3 Ml) Ud) 3 ml INH RQ6 [facility] Last Admin: 08/12/18 13:00 Dose: 3 ml Aspirin (Aspirin Chewable) 81 mg PO DAILY [facility] Last Admin: 08/11/18 10:00 Dose: 81 mg Heparin Sodium (Porcine) (Heparin) 5,000 units SC Q12 [facility] Last Admin: 08/11/18 10:00 Dose: 5,000 units Hydromorphone HCl (Dilaudid) 0.5 mg IVP Q6H PRN PRN Reason: Pain, moderate (4-7) Meropenem 500 mg/ Sodium (Chloride) 100 mls @ 100 mls/hr IVPB Q8H [facility]; Protocol Last Admin: 08/12/18 04:13 Dose: 100 mls/hr Sodium Bicarbonate 150 meq/ (Dextrose) 1,150 mls @ 50 mls/hr IV .Q23H [facility] Pantoprazole Sodium (Protonix Inj) 40 mg IVP DAILY [facility] - Labs Labs: 08/12/18 05:48 08/12/18 05:48 PT 21.1 SECONDS (9.7-12.2) H 08/12/18 05:48 INR 1.9 08/12/18 05:48 APTT 28 SECONDS (21-34) 08/12/18 05:48 - Constitutional Appears: Well - Head Exam Head Exam: ATRAUMATIC, NORMAL INSPECTION, NORMOCEPHALIC - Eye Exam Eye Exam: EOMI, Normal appearance, PERRL Pupil Exam: NORMAL ACCOMODATION, PERRL - ENT Exam ENT Exam: Mucous Membranes Moist, Normal Exam - Neck Exam Neck Exam: Full ROM, Normal Inspection. absent: Lymphadenopathy - Respiratory Exam Respiratory Exam: Decreased Breath Sounds - Cardiovascular Exam Cardiovascular Exam: REGULAR RHYTHM, +S1, +S2 - GI/Abdominal Exam GI & Abdominal Exam: Soft, Diminished Bowel Sounds - Rectal Exam Rectal Exam: Deferred
[2018-08-12] MEDS: Albumin Human 25% (12.5 gm/50 ml) IV SCH ×2 (15:51→16:22)
--- NOTE | 2018-08-12 15:58 | CT ---
Date of service: 08/12/2018 PROCEDURE: CT Chest without contrast HISTORY: lung ca COMPARISON: None available. TECHNIQUE: Contiguous axial images were obtained through the chest without intravenous contrast enhancement. Sagittal and coronal reconstructions were performed. Radiation dose: Total exam DLP = 522.06 mGy-cm. This CT exam was performed using one or more of the following dose reduction techniques: Automated exposure control, adjustment of the mA and/or kV according to patient size, and/or use of iterative reconstruction technique. FINDINGS: LUNGS: Linear atelectasis or fibrosis is reiterated at the bilateral lung bases, right greater than left. Respiratory motion degrades quality this examination significantly. Endotracheal tube is identified placed unchanged compared to prior chest radiograph 08/12/2018 7:02 a.m. with nasogastric tube unchanged in position as well. Extensive centrilobular emphysema seen at the apices predominantly. Area of probable fibrosis is seen at the right apex though limited local infiltrate difficult to exclude here (see images thirty-three through 44). A definitive pulmonary mass is not clearly identified and exclusive of the endotracheal tube, the central airways are clear. MEDIASTINUM: Unremarkable thoracic aorta. No aneurysm. Cardiomegaly is identified with extensive coronary artery calcifications related. The thoracic aorta is normal in caliber though atherosclerotic. The main pulmonary is grossly dilated measuring up to 4.4 cm greatest transverse dimension. No suspicious lymphadenopathy. Calcific atherosclerotic changes are seen related to the thoracic aorta. Gas seen distending the upper mid esophagus somewhat.. PLEURA: Trace bilateral pleural effusion identified greater the right than left sides. BONES: No fracture. No destructive lesion. UPPER ABDOMEN: Nonspecific streaky perinephric changes seen related to the bilateral kidneys with left renal cyst evident. Nasogastric tube enters into the gastric fundus with the tip not included in this exam. OTHER FINDINGS: None. IMPRESSION: 1. No definitive pulmonary mass or significant lymphadenopathy identified in the chest. 2. Extensive COPD identified. Respiratory motion degrades quality exam significantly. 3. Pulmonary artery hypertension suspected given dilatation of the main pulmonary artery. 4. Trace bilateral pleural effusions with related compression atelectasis at the bases symmetrically.
[2018-08-12] MEDS: Dexmedetomidine Hydrochloride 200 MCG in Sodium Chloride 0.9% 48 ML IV PRN (16:20)
[2018-08-13] MEDS: Dexmedetomidine Hydrochloride 200 MCG in Sodium Chloride 0.9% 48 ML IV PRN (00:44)
[2018-08-13] MEDS: Albuterol-Ipratrop 3 mg / 0.5 (3 ml) UD INH SCH ×4 (00:57→19:29)
[2018-08-13] MEDS: Meropenem 500 MG in Sodium Chloride 0.9% 100 ML IVPB SCH ×3 (04:20→20:00)
[2018-08-13 05:52] LABS: ARTERIAL BLOOD GAS HCO3 24.2 mmol/L (21-28); ARTERIAL BLOOD GAS HEMOGLOBIN 13.6 g/dL (11.7-17.4); ARTERIAL BLOOD GAS O2 SAT 96.3 % (95-98); ARTERIAL BLOOD GAS PCO2 31 mm/Hg (35-45); ARTERIAL BLOOD GAS PH 7.46 (7.35-7.45); ARTERIAL BLOOD GAS PO2 92 mm/Hg (80-100)
[2018-08-13 06:31] LABS: BASO # 0.1 K/uL (0.0-0.2); BASO % 0.3 % (0.0-2.0); EOS # 0.1 K/uL (0.0-0.7); EOS % 0.7 % (0.0-4.0); HEMOGLOBIN 9.4 g/dL (11.0-16.0); LYMPH % 5.4 % (20.0-40.0); MEAN CELL VOLUME 86.4 fL (81.0-99.0); MEAN CORPUSCULAR HEMOGLOBIN 28.5 pg (27.0-31.0); MEAN PLATELET VOLUME 8.5 fL (7.2-11.7); MONO # 0.2 K/uL (0.0-0.8); MONO % 1.1 % (0.0-10.0); NEUT # 17.9 K/uL (1.8-7.0); NEUT % 92.5 % (50.0-75.0); PLATELET COUNT 405 K/uL (130-400); RBC 3.29 Mil/uL (3.80-5.20); RED CELL DISTRIBUTION WIDTH 15.7 % (11.5-14.5); WHITE BLOOD COUNT 19.4 K/uL (4.8-10.8)
[2018-08-13 06:50] LABS: ALB/GLOB RATIO 1.1 (1.0-2.1); ALBUMIN 2.7 g/dL (3.5-5.0); CALCIUM 8.1 mg/dl (8.6-10.4)
[2018-08-13] MEDS ORDERED: Lactated Ringer's 1,000 ML IV ONE (08:05)
--- NOTE | 2018-08-13 08:39 | RAD ---
Date of service: 08/13/2018 HISTORY: R/O pneumonia COMPARISON: Portable chest 08/12/2018. FINDINGS: LUNGS: Endotracheal and nasogastric tubes are not significantly changed in position. Left pleural effusion remains mild with underlying airspace disease not excluded. No effusion is seen at the right. No pneumothorax bilaterally. Linear atelectasis unchanged right base. PLEURA: As above. CARDIOVASCULAR: Calcific atherosclerotic changes are seen related to the thoracic aorta. Normal cardiac size. No pulmonary vascular congestion. OSSEOUS STRUCTURES: No significant abnormalities. VISUALIZED UPPER ABDOMEN: Normal. OTHER FINDINGS: None. IMPRESSION: Mild left pleural effusion and possible underlying airspace disease unchanged.
[2018-08-13 09:23] LABS: BANDS 8 % (0-2); LYMPHOCYTE 6 % (20-40); MONOCYTE 6 % (0-10); MYELOCYTE 1 % (0-0); NEUTROPHIL 79 % (50-75); TOTAL CELLS COUNTED 100
[2018-08-13 09:24] LABS: ANISOCYTOSIS SLIGHT; GIANT PLATELETS PRESENT; HYPOCHROMIC SLIGHT; LARGE PLATELETS PRESENT; PLATELET ESTIMATE SLIGHTLY INCREASED (NORMAL); POIKILOCYTOSIS SLIGHT; POLYCHROMIC SLIGHT; TOXIC GRANULATION PRESENT
[2018-08-13 09:25] LABS: BURR CELLS SLIGHT; OVALOCYTES SLIGHT; PLATELET CLUMPS PRESENT
--- NOTE | 2018-08-13 09:27 | CP.PCM.PN ---
Subjective - Date & Time of Evaluation Date of Evaluation: 08/13/18 Time of Evaluation: 09:26 - Subjective Subjective: Surgery: Dr. Swan Pt seen and examined. No acute events overnight. Pt remains intubated on light sedation in the ICU. Responds to come commands. Having appropriate UOP and no fevers recorded overnight. Objective - Vital Signs/Intake and Output Vital Signs (last 24 hours): Temp Pulse Resp BP Pulse Ox 97.4 F L 70 20 114/52 L 99 08/13/18 08:00 08/13/18 08:00 08/13/18 08:00 08/13/18 08:00 08/13/18 08:00 Intake and Output: 08/13/18 08/13/18 06:59 18:59 Intake Total 126 Output Total 270 Balance -144 - Medications Medications: Current Medications Albuterol/Ipratropium (Duoneb 3 Mg/0.5 Mg (3 Ml) Ud) 3 ml INH RQ6 [facility] Last Admin: 08/13/18 07:54 Dose: 3 ml Aspirin (Aspirin Chewable) 81 mg PO DAILY [facility] Last Admin: 08/11/18 10:00 Dose: 81 mg Heparin Sodium (Porcine) (Heparin) 5,000 units SC Q12 [facility] Last Admin: 08/13/18 09:10 Dose: 5,000 units Hydromorphone HCl (Dilaudid) 0.5 mg IVP Q6H PRN PRN Reason: Pain, moderate (4-7) Meropenem 500 mg/ Sodium (Chloride) 100 mls @ 100 mls/hr IVPB Q8H [facility]; Protocol Last Admin: 08/13/18 04:20 Dose: 100 mls/hr Dexmedetomidine HCl 200 mcg/ (Sodium Chloride) 50 mls @ 2.98 mls/hr IV TITR PRN; Protocol PRN Reason: Sedation Last Admin: 08/13/18 00:44 Dose: 0.3 mcg/kg/hr, 4.46 mls/hr Potassium Chloride (Potassium Chloride 10 Meq/100 Ml) 10 meq in 100 mls @ 100 mls/hr IVPB Q1H [facility] Stop: 08/13/18 10:29 Last Admin: 08/13/18 08:59 Dose: 100 mls/hr Lactated Ringer's (Lactated Ringer's) 1,000 mls @ 50 mls/hr IV .Q20H [facility] Stop: 08/14/18 04:04 Last Admin: 08/13/18 08:58 Dose: 50 mls/hr Influenza Virus Vaccine (Fluzone Quad [id number]) 60 mcg IM .ONCE [facility] Stop: 08/15/18 10:01 Pantoprazole Sodium (Protonix Inj) 40 mg IVP DAILY [facility] Last Admin: 08/13/18 09:10 Dose: 40 mg Pneumococcal Polyvalent Vaccine (Pneumovax 23 Vaccine) 0.5 ml IM .ONCE [facility] Stop: 08/15/18 10:01 - Labs Labs: 08/13/18 06:25 08/13/18 06:25 PT 21.1 SECONDS (9.7-12.2) H 08/12/18 05:48 INR 1.9 08/12/18 05:48 APTT 28 SECONDS (21-34) 08/12/18 05:48 - Constitutional Appears: No Acute Distress - Head Exam Head Exam: ATRAUMATIC, NORMOCEPHALIC - ENT Exam Additional comments: ETT in place, NGT in place - Respiratory Exam Respiratory Exam: NORMAL BREATHING PATTERN Additional comments: on the vent - GI/Abdominal Exam GI & Abdominal Exam: Soft, Tenderness (arond midline incision, travon with serosang output ). absent: Distended, Rebound - Extremities Exam Extremities Exam: absent: Calf Tenderness - Skin Skin Exam: Dry, Warm Assessment and Plan - Assessment and Plan (Free Text) Assessment: 88F with perforated viscus s/p Ex-Lap with repair of bladder perforation, partial sigmoid resection and end sigmoid colostomy; POD#2 Plan: - as per discussion with [employer] Catalog[employer] Dr. Carter, plan is to extubate pt today - cont to monitor UOP, champion to remain in place for 2-3 weeks - d/w Dr. Beny Rogers
--- NOTE | 2018-08-13 12:16 | CP.PCM.PN ---
Subjective - Date & Time of Evaluation Date of Evaluation: 08/13/18 Time of Evaluation: 12:13 - Subjective Subjective: Patient seen and examined at bedside. Patient moer awake, alert tolerating CPAP Objective - Vital Signs/Intake and Output Vital Signs (last 24 hours): Temp Pulse Resp BP Pulse Ox 97.4 F L 94 H 24 127/58 L 97 08/13/18 08:00 08/13/18 10:00 08/13/18 10:00 08/13/18 10:00 08/13/18 10:00 Intake and Output: 08/13/18 08/13/18 06:59 18:59 Intake Total 426 Output Total 340 Balance 86 - Medications Medications: Current Medications Albuterol/Ipratropium (Duoneb 3 Mg/0.5 Mg (3 Ml) Ud) 3 ml INH RQ6 [facility] Last Admin: 08/13/18 07:54 Dose: 3 ml Aspirin (Aspirin Chewable) 81 mg PO DAILY [facility] Last Admin: 08/11/18 10:00 Dose: 81 mg Heparin Sodium (Porcine) (Heparin) 5,000 units SC Q12 [facility] Last Admin: 08/13/18 09:10 Dose: 5,000 units Hydromorphone HCl (Dilaudid) 0.5 mg IVP Q6H PRN PRN Reason: Pain, moderate (4-7) Meropenem 500 mg/ Sodium (Chloride) 100 mls @ 100 mls/hr IVPB Q8H [facility]; Protocol Last Admin: 08/13/18 04:20 Dose: 100 mls/hr Dexmedetomidine HCl 200 mcg/ (Sodium Chloride) 50 mls @ 2.98 mls/hr IV TITR PRN; Protocol PRN Reason: Sedation Last Admin: 08/13/18 00:44 Dose: 0.3 mcg/kg/hr, 4.46 mls/hr Lactated Ringer's (Lactated Ringer's) 1,000 mls @ 50 mls/hr IV .Q20H [facility] Stop: 08/14/18 04:04 Last Admin: 08/13/18 08:58 Dose: 50 mls/hr Influenza Virus Vaccine (Fluzone Quad [id number]) 60 mcg IM .ONCE ONE Stop: 08/15/18 10:01 Pantoprazole Sodium (Protonix Inj) 40 mg IVP DAILY [facility] Last Admin: 08/13/18 09:10 Dose: 40 mg Pneumococcal Polyvalent Vaccine (Pneumovax 23 Vaccine) 0.5 ml IM .ONCE [facility] Stop: 08/15/18 10:01 - Labs Labs: 08/13/18 06:25 08/13/18 06:25 PT 21.1 SECONDS (9.7-12.2) H 08/12/18 05:48 INR 1.9 08/12/18 05:48 APTT 28 SECONDS (21-34) 08/12/18 05:48 - Constitutional Appears: Well, Non-toxic - Head Exam Head Exam: ATRAUMATIC, NORMAL INSPECTION - Eye Exam Pupil Exam: PERRL - Respiratory Exam Respiratory Exam: Clear to Ausculation Bilateral, NORMAL BREATHING PATTERN. absent: Accessory Muscle Use, Respiratory Distress - Cardiovascular Exam Cardiovascular Exam: REGULAR RHYTHM, +S1, +S2 - GI/Abdominal Exam GI & Abdominal Exam: Diminished Bowel Sounds - Back Exam Back Exam: NORMAL INSPECTION - Neurological Exam Neurological Exam: Alert Assessment and Plan - Assessment and Plan (Free Text) Assessment: POD #2 -Hypoxic respiratory failure: continue ventilation to keep spo2 > 92, continue bronchodilators, tolerating CPAP (when awake, extubate), RSI 50 -NG tube to suction (surgery to evaluate feeding) -GNR bacteremia:continue broad spectrum abx, lactic normalized -Metabolic and respiratory acidosis: resolved, d/c bicarb ggt, switch to LR -JU: resolving with IVF, avoid nephrotoxic drugs -continue DVT/PUD ppx: heparin Sq/PUD ppx -BGM q6hrs, ISS prognosis guarded cc time 40 minutes Addendum: Patient tolerated CPAP and extubated sucessfully.
[2018-08-13] MEDS ORDERED: MethylPREDNISolone 40 mg Vial IVP STA (12:31)
--- NOTE | 2018-08-13 13:07 | CP.PCM.PN ---
Subjective - Date & Time of Evaluation Date of Evaluation: 08/13/18 Time of Evaluation: 11:45 - Subjective Subjective: clinically same Objective - Vital Signs/Intake and Output Vital Signs (last 24 hours): Temp Pulse Resp BP Pulse Ox 97.8 F 96 H 30 H 120/64 99 08/13/18 12:00 08/13/18 12:00 08/13/18 12:00 08/13/18 12:00 08/13/18 12:00 Intake and Output: 08/13/18 08/13/18 06:59 18:59 Intake Total 526 Output Total 480 Balance 46 - Medications Medications: Current Medications Albuterol/Ipratropium (Duoneb 3 Mg/0.5 Mg (3 Ml) Ud) 3 ml INH RQ6 [facility] Last Admin: 08/13/18 07:54 Dose: 3 ml Aspirin (Aspirin Chewable) 81 mg PO DAILY [facility] Last Admin: 08/11/18 10:00 Dose: 81 mg Heparin Sodium (Porcine) (Heparin) 5,000 units SC Q12 [facility] Last Admin: 08/13/18 09:10 Dose: 5,000 units Hydromorphone HCl (Dilaudid) 0.5 mg IVP Q6H PRN PRN Reason: Pain, moderate (4-7) Meropenem 500 mg/ Sodium (Chloride) 100 mls @ 100 mls/hr IVPB Q8H [facility]; Protocol Last Admin: 08/13/18 12:41 Dose: 100 mls/hr Dexmedetomidine HCl 200 mcg/ (Sodium Chloride) 50 mls @ 2.98 mls/hr IV TITR PRN; Protocol PRN Reason: Sedation Last Admin: 08/13/18 00:44 Dose: 0.3 mcg/kg/hr, 4.46 mls/hr Lactated Ringer's (Lactated Ringer's) 1,000 mls @ 50 mls/hr IV .Q20H [facility] Stop: 08/14/18 04:04 Last Admin: 08/13/18 08:58 Dose: 50 mls/hr Influenza Virus Vaccine (Fluzone Quad [id number]) 60 mcg IM .ONCE ONE Stop: 08/15/18 10:01 Pantoprazole Sodium (Protonix Inj) 40 mg IVP DAILY [facility] Last Admin: 08/13/18 09:10 Dose: 40 mg Pneumococcal Polyvalent Vaccine (Pneumovax 23 Vaccine) 0.5 ml IM .ONCE ONE Stop: 08/15/18 10:01 - Labs Labs: 08/13/18 06:25 08/13/18 06:25 PT 21.1 SECONDS (9.7-12.2) H 08/12/18 05:48 INR 1.9 08/12/18 05:48 APTT 28 SECONDS (21-34) 08/12/18 05:48 - Constitutional Appears: Well - Head Exam Head Exam: ATRAUMATIC, NORMAL INSPECTION, NORMOCEPHALIC - Eye Exam Eye Exam: EOMI, Normal appearance, PERRL Pupil Exam: NORMAL ACCOMODATION, PERRL - ENT Exam ENT Exam: Mucous Membranes Moist, Normal Exam - Neck Exam Neck Exam: Full ROM, Normal Inspection. absent: Lymphadenopathy - Respiratory Exam Respiratory Exam: Decreased Breath Sounds - Cardiovascular Exam Cardiovascular Exam: REGULAR RHYTHM, +S1, +S2 - GI/Abdominal Exam GI & Abdominal Exam: Soft, Diminished Bowel Sounds - Rectal Exam Rectal Exam: Deferred
[2018-08-13 14:27] LABS: ARTERIAL BLOOD GAS O2 SAT 95.1 % (95-98); ARTERIAL BLOOD GAS PCO2 25 mm/Hg (35-45); ARTERIAL BLOOD GAS PH 7.45 (7.35-7.45); ARTERIAL BLOOD GAS PO2 67 mm/Hg (80-100); ARTERIAL BLOOD GAS TCO2 18.2 mmol/L (22-28)
--- NOTE | 2018-08-13 15:21 | CP.PCM.PN ---
Subjective - Date & Time of Evaluation Date of Evaluation: 08/13/18 Time of Evaluation: 07:00 - Subjective Subjective: e coli in urine sens to merrem iv rx renewed Objective - Vital Signs/Intake and Output Vital Signs (last 24 hours): Temp Pulse Resp BP Pulse Ox 97.8 F 91 H 29 H 120/51 L 96 08/13/18 12:00 08/13/18 15:00 08/13/18 15:00 08/13/18 15:00 08/13/18 15:00 Intake and Output: 08/13/18 08/13/18 06:59 18:59 Intake Total 676 Output Total 530 Balance 146 - Medications Medications: Current Medications Albuterol/Ipratropium (Duoneb 3 Mg/0.5 Mg (3 Ml) Ud) 3 ml INH RQ6 [facility] Last Admin: 08/13/18 07:54 Dose: 3 ml Aspirin (Aspirin Chewable) 81 mg PO DAILY [facility] Last Admin: 08/11/18 10:00 Dose: 81 mg Heparin Sodium (Porcine) (Heparin) 5,000 units SC Q12 [facility] Last Admin: 08/13/18 09:10 Dose: 5,000 units Hydromorphone HCl (Dilaudid) 0.5 mg IVP Q6H PRN PRN Reason: Pain, moderate (4-7) Meropenem 500 mg/ Sodium (Chloride) 100 mls @ 100 mls/hr IVPB Q8H [facility]; Protocol Last Admin: 08/13/18 12:41 Dose: 100 mls/hr Dexmedetomidine HCl 200 mcg/ (Sodium Chloride) 50 mls @ 2.98 mls/hr IV TITR PRN; Protocol PRN Reason: Sedation Last Admin: 08/13/18 00:44 Dose: 0.3 mcg/kg/hr, 4.46 mls/hr Lactated Ringer's (Lactated Ringer's) 1,000 mls @ 50 mls/hr IV .Q20H [facility] Stop: 08/14/18 04:04 Last Admin: 08/13/18 08:58 Dose: 50 mls/hr Influenza Virus Vaccine (Fluzone Quad [id number]) 60 mcg IM .ONCE ONE Stop: 08/15/18 10:01 Pantoprazole Sodium (Protonix Inj) 40 mg IVP DAILY [facility] Last Admin: 11/04/18 09:10 Dose: 40 mg Pneumococcal Polyvalent Vaccine (Pneumovax 23 Vaccine) 0.5 ml IM .ONCE ONE Stop: 08/15/18 10:01 - Labs Labs: 08/13/18 06:25 08/13/18 06:25 PT 21.1 SECONDS (9.7-12.2) H 08/12/18 05:48 INR 1.9 08/12/18 05:48 APTT 28 SECONDS (21-34) 08/12/18 05:48 - Constitutional Appears: Confused, Chronically Ill - Head Exam Head Exam: NORMOCEPHALIC - Eye Exam Eye Exam: absent: Scleral icterus - ENT Exam ENT Exam: Mucous Membranes Dry - Neck Exam Neck Exam: absent: Lymphadenopathy - Respiratory Exam Respiratory Exam: Decreased Breath Sounds - Cardiovascular Exam Cardiovascular Exam: REGULAR RHYTHM - GI/Abdominal Exam GI & Abdominal Exam: Distended, Soft Assessment and Plan (1) Acute renal insufficiency Status: Acute (2) Dehydration Status: Acute (3) History of ESBL E. coli infection Status: Acute (4) UTI (urinary tract infection) Status: Acute (5) COPD exacerbation Status: Acute (6) [place]-vesical fistula Status: Acute
[2018-08-13] MEDS: HYDROmorphone 0.5 mg/0.5 ml ISec IVP PRN (17:06)
[2018-08-13] MEDS ORDERED: HYDROmorphone 0.5 mg/0.5 ml ISec IVP STA (21:10)
[2018-08-13] MEDS ORDERED: Acetaminophen IV 1,000 MG in Premixed IV 1 EA IV ONE (22:14)
[2018-08-14] MEDS: HYDROmorphone 0.5 mg/0.5 ml ISec IVP PRN ×2 (01:30→16:54)
[2018-08-14] MEDS: Albuterol-Ipratrop 3 mg / 0.5 (3 ml) UD INH SCH ×4 (01:51→19:19)
[2018-08-14] MEDS: Meropenem 500 MG in Sodium Chloride 0.9% 100 ML IVPB SCH ×3 (04:00→20:45)
[2018-08-14 06:36] LABS: BASO % 0.2 % (0.0-2.0); EOS % 0.1 % (0.0-4.0); HEMOGLOBIN 10.7 g/dL (11.0-16.0); LYMPH # 0.9 K/uL (1.0-4.3); LYMPH % 6.1 % (20.0-40.0); MEAN CELL VOLUME 86.5 fL (81.0-99.0); MEAN CORPUSCULAR HEMOGLOBIN 28.6 pg (27.0-31.0); MEAN PLATELET VOLUME 8.8 fL (7.2-11.7); MONO # 0.2 K/uL (0.0-0.8); MONO % 1.7 % (0.0-10.0); NEUT # 13.9 K/uL (1.8-7.0); NEUT % 91.9 % (50.0-75.0); PLATELET COUNT 421 K/uL (130-400); RBC 3.73 Mil/uL (3.80-5.20); RED CELL DISTRIBUTION WIDTH 15.8 % (11.5-14.5); WHITE BLOOD COUNT 15.1 K/uL (4.8-10.8)
[2018-08-14 06:53] LABS: ALBUMIN 3.3 g/dL (3.5-5.0); ALT/SGPT 61 U/L (9-52); AST/SGOT 76 U/L (14-36); BLOOD UREA NITROGEN 28 mg/dL (7-17); CALCIUM 8.7 mg/dl (8.6-10.4); GFR NON-AFRICAN AMERICAN 52
--- NOTE | 2018-08-14 08:09 | CP.CCUPN ---
<Adelia Weber - Last Filed: 08/14/18 14:06> CCU Subjective - Physician Review Events Since Last Encounter (Free Text): 08/14/18 08:05 no over night events reported Subjective (Free Text): 08/14/18 08:05 Patient was seen and examined this morning. She is POD3 ex lap. She is on BiPAP. She complains of significant abdominal pain. Critical Care Time Spent (in minutes): 35 CCU Objective - Vital Signs / Intake & Output Vital Signs (Last 4 hours): Vital Signs Pulse Resp BP Pulse Ox 08/14/18 07:00 100 H 16 135/55 L 08/14/18 06:23 100 H 08/14/18 06:00 119 H 16 147/71 99 08/14/18 05:00 100 H 17 140/65 97 08/14/18 04:33 105 H Intake and Output (Last 8hrs): Intake & Output 08/13/18 08/14/18 08/14/18 22:59 06:59 14:59 Intake Total 450 550 50 Output Total 980 1020 265 Balance -530 -470 -215 Weight 133 lb 8 oz Intake: Intake, IV Amount 450 550 50 Left Forearm 250 Left Wrist 0 Right Hand 200 550 50 Oral 0 0 Output: Gastric Amount 75 40 Right Nares 75 40 Drainage 45 75 Right Abdomen 45 75 Urine 860 1020 150 Urethral (Fish) 860 1020 150 Stool 0 0 - Physical Exam Head: Positive for: Atraumatic, Normocephalic Pupils: Positive for: PERRL Mouth: Positive for: Moist Mucous Membranes Respiratory/Chest: Positive for: Good Air Exchange, Rales Cardiovascular: Positive for: Regular Rate and Rhythm, Normal S1, S2 Abdomen: Positive for: Ostomy Tubes (colostomy LLQ), Other (decrease Bowel sounds, NG to suction, SUSY drain RLQ) Genitourinary/Pelvic Exam: Positive for: Other (Fish) Upper Extremity: Positive for: Normal Inspection Lower Extremity: Positive for: Normal Inspection. Negative for: Edema Skin: Positive for: Warm, Dry, Normal Color Psychiatric: Positive for: Alert - Medications Active Medications: Active Medications Generic Name Dose Route Start Last Admin Trade Name Freq PRN Reason Stop Dose Admin Albuterol/Ipratropium 3 ml 08/11/18 20:00 08/14/18 01:51 Duoneb 3 Mg/0.5 Mg (3 Ml) Ud INH 3 ml RQ6 JOHN Administration Aspirin 81 mg 08/11/18 10:00 08/11/18 10:00 Aspirin Chewable PO 81 mg DAILY JOHN Administration Heparin Sodium (Porcine) 5,000 units 08/11/18 10:00 08/13/18 22:18 Heparin SC 5,000 units Q12 JOHN Administration Hydromorphone HCl 0.5 mg 08/11/18 19:29 08/14/18 01:30 Dilaudid IVP 0.5 mg Q6H PRN Administration Pain, moderate (4-7) Meropenem 500 mg/ Sodium 100 mls @ 100 mls/hr 08/10/18 19:45 08/14/18 04:00 Chloride IVPB 100 mls/hr Q8H JOHN Administration Protocol Influenza Virus Vaccine 60 mcg 08/15/18 10:00 Fluzone Quad [id number] IM 08/15/18 10:01 .ONCE ONE Pantoprazole Sodium 40 mg 08/12/18 10:00 08/13/18 09:10 Protonix Inj IVP 40 mg DAILY JOHN Administration Pneumococcal Polyvalent Vaccine 0.5 ml 08/15/18 10:00 Pneumovax 23 Vaccine IM 08/15/18 10:01 .ONCE ONE - Patient Studies Lab Studies: Microbiology Studies 08/10/18 18:20 Blood Culture - Preliminary Blood NO GROWTH AFTER 3 DAYS 08/10/18 17:35 Blood Culture - Preliminary Blood NO GROWTH AFTER 3 DAYS 08/11/18 07:30 MRSA Culture (Admit) - Final Nose MRSA NOT DETECTED 08/11/18 19:37 Gram Stain - Final Other: Please Indicate Wound Culture - Final Escherichia Coli Lab Studies 08/14/18 08/14/18 08/13/18 Range/Units 06:27 06:26 14:24 WBC 15.1 H (4.8-10.8) K/uL RBC 3.73 L (3.80-5.20) Mil/uL Hgb 10.7 L (11.0-16.0) g/dL Hct 32.3 L (34.0-47.0) % MCV 86.5 (81.0-99.0) fL MCH 28.6 (27.0-31.0) pg MCHC 33.0 (33.0-37.0) g/dL RDW 15.8 H (11.5-14.5) % Plt Count 421 H (130-400) K/uL MPV 8.8 (7.2-11.7) fL Neut % (Auto) 91.9 H (50.0-75.0) % Lymph % (Auto) 6.1 L (20.0-40.0) % [place] % (Auto) 1.7 (0.0-10.0) % Eos % (Auto) 0.1 (0.0-4.0) % Baso % (Auto) 0.2 (0.0-2.0) % Neut # (Auto) 13.9 H (1.8-7.0) K/uL Lymph # (Auto) 0.9 L (1.0-4.3) K/uL [place] # (Auto) 0.2 (0.0-0.8) K/uL Eos # (Auto) 0.0 (0.0-0.7) K/uL Baso # (Auto) 0.0 (0.0-0.2) K/uL Neutrophils % (Manual) (50-75) % Band Neutrophils % (0-2) % Lymphocytes % (Manual) (20-40) % Monocytes % (Manual) (0-10) % Myelocytes % (0-0) % Toxic Granulation Platelet Estimate (NORMAL) Plt Clumps, EDTA Large Platelets Giant Platelets Polychromasia Hypochromasia (manual) Poikilocytosis (manual Anisocytosis (manual) Ovalocytes [place] Cells Puncture Site Lb pCO2 25 L (35-45) mm/Hg pO2 67 L (80-100) mm/Hg HCO3 21.0 (21-28) mmol/L ABG pH 7.45 (7.35-7.45) ABG Total CO2 18.2 L (22-28) mmol/L ABG O2 Saturation 95.1 (95-98) % ABG Base Excess -4.9 L (-2.0-3.0) mmol/L Mathew Test Na ABG Potassium 2.7 L (3.6-5.2) mmol/L A-a O2 Difference 151.0 mm/Hg Respiratory Index 2.3 Sodium 147 151.0 H (132-148) mmol/l Chloride 114 H 126.0 H (98-107) mmol/L Glucose 74 (65-105) mg/dl Lactate 0.7 (0.7-2.1) mmol/L FiO2 35.0 % Potassium 4.9 (3.6-5.2) mmol/L Carbon Dioxide 23 (22-30) mmol/L Anion Gap 15 (10-20) BUN 28 H (7-17) mg/dL Creatinine 1.0 (0.7-1.2) mg/dL Est GFR ( Amer) > 60 Est GFR (Non-Af Amer) 52 Random Glucose 157 H (65-105) mg/dL Calcium 8.7 (8.6-10.4) mg/dl Phosphorus 3.4 (2.5-4.5) mg/dL Magnesium 2.1 (1.6-2.3) mg/dL Total Bilirubin 1.2 (0.2-1.3) mg/dL AST 76 H (14-36) U/L ALT 61 H (9-52) U/L Alkaline Phosphatase 234 H D (38-126) U/L Total Protein 6.6 (6.3-8.3) g/dL Albumin 3.3 L D (3.5-5.0) g/dL Globulin 3.3 (2.2-3.9) gm/dL Albumin/Globulin Ratio 1.0 (1.0-2.1) Arterial Blood Potassium 2.7 L (3.6-5.2) mmol/L Ur Random Creatinine (20-275) mg/dL U Random Total Protein (21-161) mg/g creat Urine Total Volume mg/dL Microalb/Creat Ratio (<30) 08/13/18 08/11/18 08/11/18 Range/Units 06:25 21:40 21:40 WBC (4.8-10.8) K/uL RBC (3.80-5.20) Mil/uL Hgb (11.0-16.0) g/dL Hct (34.0-47.0) % MCV (81.0-99.0) fL MCH (27.0-31.0) pg MCHC (33.0-37.0) g/dL RDW (11.5-14.5) % Plt Count (130-400) K/uL MPV (7.2-11.7) fL Neut % (Auto) (50.0-75.0) % Lymph % (Auto) (20.0-40.0) % [place] % (Auto) (0.0-10.0) % Eos % (Auto) (0.0-4.0) % Baso % (Auto) (0.0-2.0) % Neut # (Auto) (1.8-7.0) K/uL Lymph # (Auto) (1.0-4.3) K/uL [place] # (Auto) (0.0-0.8) K/uL Eos # (Auto) (0.0-0.7) K/uL Baso # (Auto) (0.0-0.2) K/uL Neutrophils % (Manual) 79 H (50-75) % Band Neutrophils % 8 H (0-2) % Lymphocytes % (Manual) 6 L (20-40) % Monocytes % (Manual) 6 (0-10) % Myelocytes % 1 H (0-0) % Toxic Granulation Present Platelet Estimate Slightly increased H (NORMAL) Plt Clumps, EDTA Present Large Platelets Present Giant Platelets Present Polychromasia Slight Hypochromasia (manual) Slight Poikilocytosis (manual Slight Anisocytosis (manual) Slight Ovalocytes Slight [place] Cells Slight Puncture Site pCO2 (35-45) mm/Hg pO2 (80-100) mm/Hg HCO3 (21-28) mmol/L ABG pH (7.35-7.45) ABG Total CO2 (22-28) mmol/L ABG O2 Saturation (95-98) % ABG Base Excess (-2.0-3.0) mmol/L Mathew Test ABG Potassium (3.6-5.2) mmol/L A-a O2 Difference mm/Hg Respiratory Index Sodium (132-148) mmol/l Chloride (98-107) mmol/L Glucose (65-105) mg/dl Lactate (0.7-2.1) mmol/L FiO2 % Potassium (3.6-5.2) mmol/L Carbon Dioxide (22-30) mmol/L Anion Gap (10-20) BUN (7-17) mg/dL Creatinine (0.7-1.2) mg/dL Est GFR ( Amer) Est GFR (Non-Af Amer) Random Glucose (65-105) mg/dL Calcium (8.6-10.4) mg/dl Phosphorus (2.5-4.5) mg/dL Magnesium (1.6-2.3) mg/dL Total Bilirubin (0.2-1.3) mg/dL AST (14-36) U/L ALT (9-52) U/L Alkaline Phosphatase (38-126) U/L Total Protein (6.3-8.3) g/dL Albumin (3.5-5.0) g/dL Globulin (2.2-3.9) gm/dL Albumin/Globulin Ratio (1.0-2.1) Arterial Blood Potassium (3.6-5.2) mmol/L Ur Random Creatinine 41 (20-275) mg/dL U Random Total Protein 3619 H (21-161) mg/g creat Urine Total Volume 24.9 mg/dL Microalb/Creat Ratio 608 H (<30) Laboratory Results - last 24 hr 08/11/18 08/11/18 08/13/18 21:40 21:40 06:25 WBC RBC Hgb Hct MCV MCH MCHC RDW Plt Count MPV Neut % (Auto) Lymph % (Auto) [place] % (Auto) Eos % (Auto) Baso % (Auto) Neut # (Auto) Lymph # (Auto) [place] # (Auto) Eos # (Auto) Baso # (Auto) Neutrophils % (Manual) 79 H Band Neutrophils % 8 H Lymphocytes % (Manual) 6 L Monocytes % (Manual) 6 Myelocytes % 1 H Toxic Granulation Present Platelet Estimate Slightly increased H Plt Clumps, EDTA Present Large Platelets Present Giant Platelets Present Polychromasia Slight Hypochromasia (manual) Slight Poikilocytosis (manual Slight Anisocytosis (manual) Slight Ovalocytes Slight [place] Cells Slight Puncture Site pCO2 pO2 HCO3 ABG pH ABG Total CO2 ABG O2 Saturation ABG Base Excess Mathew Test ABG Potassium A-a O2 Difference Respiratory Index Sodium Chloride Glucose Lactate FiO2 Potassium Carbon Dioxide Anion Gap BUN Creatinine Est GFR ( Amer) Est GFR (Non-Af Amer) Random Glucose Calcium Phosphorus Magnesium Total Bilirubin AST ALT Alkaline Phosphatase Total Protein Albumin Globulin Albumin/Globulin Ratio Arterial Blood Potassium Ur Random Creatinine 41 U Random Total Protein 3619 H Urine Total Volume 24.9 Microalb/Creat Ratio 608 H 08/13/18 08/14/18 08/14/18 14:24 06:26 06:27 WBC 15.1 H RBC 3.73 L Hgb 10.7 L Hct 32.3 L MCV 86.5 MCH 28.6 MCHC 33.0 RDW 15.8 H Plt Count 421 H MPV 8.8 Neut % (Auto) 91.9 H Lymph % (Auto) 6.1 L [place] % (Auto) 1.7 Eos % (Auto) 0.1 Baso % (Auto) 0.2 Neut # (Auto) 13.9 H Lymph # (Auto) 0.9 L [place] # (Auto) 0.2 Eos # (Auto) 0.0 Baso # (Auto) 0.0 Neutrophils % (Manual) Band Neutrophils % Lymphocytes % (Manual) Monocytes % (Manual) Myelocytes % Toxic Granulation Platelet Estimate Plt Clumps, EDTA Large Platelets Giant Platelets Polychromasia Hypochromasia (manual) Poikilocytosis (manual Anisocytosis (manual) Ovalocytes [place] Cells Puncture Site Lb pCO2 25 L pO2 67 L HCO3 21.0 ABG pH 7.45 ABG Total CO2 18.2 L ABG O2 Saturation 95.1 ABG Base Excess -4.9 L Mathew Test Na ABG Potassium 2.7 L A-a O2 Difference 151.0 Respiratory Index 2.3 Sodium 151.0 H 147 Chloride 126.0 H 114 H Glucose 74 Lactate 0.7 FiO2 35.0 Potassium 4.9 Carbon Dioxide 23 Anion Gap 15 BUN 28 H Creatinine 1.0 Est GFR ( Amer) > 60 Est GFR (Non-Af Amer) 52 Random Glucose 157 H Calcium 8.7 Phosphorus 3.4 Magnesium 2.1 Total Bilirubin 1.2 AST 76 H ALT 61 H Alkaline Phosphatase 234 H D Total Protein 6.6 Albumin 3.3 L D Globulin 3.3 Albumin/Globulin Ratio 1.0 Arterial Blood Potassium 2.7 L Ur Random Creatinine U Random Total Protein Urine Total Volume Microalb/Creat Ratio Review of Systems - Review of Systems Systems not reviewed;Unavailable: Acuity of Condition Critical Care Progress Note - Extremities/Vascular Does the Patient have a Central Venous Catheter?: No Does the Patient need a Central Venous Catheter?: No Does the Patient have a Fish Catheter?: Yes Does the Patient need a Fish Catheter?: Yes Catheter Insertion Criteria: Urologic Study/Urologic/Gynecologic - Prophylaxis GI Prophylaxis GI: PPI - Prophylaxis DVT Prophylaxis DVT: Heparin SQ - Nutrition Nutrition: Nutrition Category Date Time Status NPO Diet [DIET] Diets 08/11/18 Dinner Active Assessment/Plan - Assessment and Plan (Free Text) Assessment: Patient is an 88 yo female with a history of COPD and HTN who presented with abdominal pain and urinary symptoms. She was found to have pneumoperitoneum. She underwent ex lap on 08/11 with sigmoid resection, bladder perforation repair, and end colostomy placement. Patient was extubated yesterday (08/13). Plan: Neuro: - No acute issues - Monitor mental status (post-op) CV: - Sinus tachycardia- pain, albuterol - Monitor vitals - ASA 81 mg PO daily- hold while NPO Pulm: - Maintain spO2>92%- NC or BiPAP PRN - Duoneb Q6H GI: - POD3- ex lap - Acetaminophen 1000 mg IV Q12H - Dilaudid 0.5 mg IV Q6H PRN - NGT intermittent suction - NPO- advance once off BiPAP and decreased NGT output - Surgery consulted (Beny) : - JU resolved - LR @ 100 - I's & O's - Replete electolytes PRN - Fish- will stay in 2-3 weeks - Albuminuria- microalb/Cr ration 608, urine total protein 3619 - Nephrology consulted (Melania) - Urology consulted (Kendrick) Endo: - Maintain euglycemia - Accuchecks Q6H - Hypoglycemia protocol Heme: - Hgb stable post-op (10.7) - Monitor H&H ID: - Leukocytosis improving (15.1) - Lactate resolved (4.1->0.7) - Urine and peritoneal fluid (intra-op)- ESBL - Blood Cx no growth >3 days - Meropenem 500 mg IV Q8H- started 08/11 - ID consulted (Ju) PPx: VTE: heparin 5000 units SC Q12H GI: PTX 40 mg IV daily PT/OT/ST- OOB to chair Code status: full code Case discussed with attending, Dr. Gonzalez. PGY-1 Adelia Weber D.O. <Mel Gonzalez - Last Filed: 08/14/18 14:28> CCU Objective - Vital Signs / Intake & Output Vital Signs (Last 4 hours): Vital Signs Temp Pulse Resp BP Pulse Ox 08/14/18 14:01 99 H 20 136/58 L 97 08/14/18 14:00 106 H 25 H 97 08/14/18 13:01 105 H 19 123/49 L 96 08/14/18 13:00 105 H 20 98 08/14/18 12:01 107 H 27 H 151/66 H 08/14/18 12:00 98.3 F 106 H 13 95 08/14/18 11:01 113 H 18 142/63 08/14/18 11:00 110 H 25 H Intake and Output (Last 8hrs): Intake & Output 08/13/18 08/14/18 08/14/18 22:59 06:59 14:59 Intake Total 450 550 600 Output Total 980 1020 1215 Balance -530 -470 -615 Weight 133 lb 8 oz Intake: Intake, IV Amount 450 550 600 Left Forearm 250 Left Wrist 0 Right Hand 200 550 600 Oral 0 0 Output: Gastric Amount 75 40 Right Nares 75 40 Drainage 45 75 Right Abdomen 45 75 Urine 860 1020 1100 Urethral (Fish) 860 1020 1100 Stool 0 0 - Medications Active Medications: Active Medications Generic Name Dose Route Start Last Admin Trade Name Freq PRN Reason Stop Dose Admin Albuterol/Ipratropium 3 ml 08/11/18 20:00 08/14/18 13:54 Duoneb 3 Mg/0.5 Mg (3 Ml) Ud INH 3 ml RQ6 JOHN Administration Aspirin 81 mg 08/11/18 10:00 08/11/18 10:00 Aspirin Chewable PO 81 mg DAILY JOHN Administration Dextrose 0 gm 08/14/18 09:00 Glutose 15 PO ONCE PRN Hypoglycemia Protocol Protocol Heparin Sodium (Porcine) 5,000 units 08/11/18 10:00 08/14/18 09:54 Heparin SC 5,000 units Q12 JOHN Administration Hydromorphone HCl 0.5 mg 08/11/18 19:29 08/14/18 01:30 Dilaudid IVP 0.5 mg Q6H PRN Administration Pain, moderate (4-7) Meropenem 500 mg/ Sodium 100 mls @ 100 mls/hr 08/10/18 19:45 08/14/18 13:17 Chloride IVPB 100 mls/hr Q8H JOHN Administration Protocol Dextrose 1,000 mls @ 0 mls/hr 08/14/18 09:00 Dextrose 5% In Water 1000 Ml IV .Q0M PRN Hypoglycemia Protocol Protocol Per Protocol Acetaminophen 1,000 mg/ 100 mls @ 400 mls/hr 08/14/18 11:00 08/14/18 13:16 Miscellaneous IV 08/15/18 11:01 400 mls/hr Q12 JOHN Administration Lactated Ringer's 1,000 mls @ 100 mls/hr 08/14/18 14:12 Lactated Ringer's IV .Q10H JOHN Influenza Virus Vaccine 60 mcg 08/15/18 10:00 Fluzone Quad [id number] IM 08/15/18 10:01 .ONCE ONE Pantoprazole Sodium 40 mg 08/12/18 10:00 08/14/18 09:54 Protonix Inj IVP 40 mg DAILY JOHN Administration Pneumococcal Polyvalent Vaccine 0.5 ml 08/15/18 10:00 Pneumovax 23 Vaccine IM 08/15/18 10:01 .ONCE ONE - Patient Studies Lab Studies: Microbiology Studies 08/10/18 18:20 Blood Culture - Preliminary Blood NO GROWTH AFTER 3 DAYS 08/10/18 17:35 Blood Culture - Preliminary Blood NO GROWTH AFTER 3 DAYS 08/11/18 07:30 MRSA Culture (Admit) - Final Nose MRSA NOT DETECTED Lab Studies 08/14/18 08/14/18 08/13/18 Range/Units 06:27 06:26 14:24 WBC 15.1 H (4.8-10.8) K/uL RBC 3.73 L (3.80-5.20) Mil/uL Hgb 10.7 L (11.0-16.0) g/dL Hct 32.3 L (34.0-47.0) % MCV 86.5 (81.0-99.0) fL MCH 28.6 (27.0-31.0) pg MCHC 33.0 (33.0-37.0) g/dL RDW 15.8 H (11.5-14.5) % Plt Count 421 H (130-400) K/uL MPV 8.8 (7.2-11.7) fL Neut % (Auto) 91.9 H (50.0-75.0) % Lymph % (Auto) 6.1 L (20.0-40.0) % [place] % (Auto) 1.7 (0.0-10.0) % Eos % (Auto) 0.1 (0.0-4.0) % Baso % (Auto) 0.2 (0.0-2.0) % Neut # (Auto) 13.9 H (1.8-7.0) K/uL Lymph # (Auto) 0.9 L (1.0-4.3) K/uL [place] # (Auto) 0.2 (0.0-0.8) K/uL Eos # (Auto) 0.0 (0.0-0.7) K/uL Baso # (Auto) 0.0 (0.0-0.2) K/uL Neutrophils % (Manual) 93 H (50-75) % Band Neutrophils % 1 (0-2) % Lymphocytes % (Manual) 4 L (20-40) % Monocytes % (Manual) 1 (0-10) % Myelocytes % 1 H (0-0) % Platelet Estimate Normal (NORMAL) Hypochromasia (manual) Slight Poikilocytosis (manual Slight Anisocytosis (manual) Slight Ovalocytes Slight [place] Cells Slight Puncture Site Lb pCO2 25 L (35-45) mm/Hg pO2 67 L (80-100) mm/Hg HCO3 21.0 (21-28) mmol/L ABG pH 7.45 (7.35-7.45) ABG Total CO2 18.2 L (22-28) mmol/L ABG O2 Saturation 95.1 (95-98) % ABG Base Excess -4.9 L (-2.0-3.0) mmol/L Mathew Test Na ABG Potassium 2.7 L (3.6-5.2) mmol/L A-a O2 Difference 151.0 mm/Hg Respiratory Index 2.3 Sodium 147 151.0 H (132-148) mmol/l Chloride 114 H 126.0 H (98-107) mmol/L Glucose 74 (65-105) mg/dl Lactate 0.7 (0.7-2.1) mmol/L FiO2 35.0 % Potassium 4.9 (3.6-5.2) mmol/L Carbon Dioxide 23 (22-30) mmol/L Anion Gap 15 (10-20) BUN 28 H (7-17) mg/dL Creatinine 1.0 (0.7-1.2) mg/dL Est GFR ( Amer) > 60 Est GFR (Non-Af Amer) 52 Random Glucose 157 H (65-105) mg/dL Calcium 8.7 (8.6-10.4) mg/dl Phosphorus 3.4 (2.5-4.5) mg/dL Magnesium 2.1 (1.6-2.3) mg/dL Total Bilirubin 1.2 (0.2-1.3) mg/dL AST 76 H (14-36) U/L ALT 61 H (9-52) U/L Alkaline Phosphatase 234 H D (38-126) U/L Total Protein 6.6 (6.3-8.3) g/dL Albumin 3.3 L D (3.5-5.0) g/dL Globulin 3.3 (2.2-3.9) gm/dL Albumin/Globulin Ratio 1.0 (1.0-2.1) Arterial Blood Potassium 2.7 L (3.6-5.2) mmol/L Ur Random Creatinine (20-275) mg/dL Urine Total Volume mg/dL Microalb/Creat Ratio (<30) 08/11/18 Range/Units 21:40 WBC (4.8-10.8) K/uL RBC (3.80-5.20) Mil/uL Hgb (11.0-16.0) g/dL Hct (34.0-47.0) % MCV (81.0-99.0) fL MCH (27.0-31.0) pg MCHC (33.0-37.0) g/dL RDW (11.5-14.5) % Plt Count (130-400) K/uL MPV (7.2-11.7) fL Neut % (Auto) (50.0-75.0) % Lymph % (Auto) (20.0-40.0) % [place] % (Auto) (0.0-10.0) % Eos % (Auto) (0.0-4.0) % Baso % (Auto) (0.0-2.0) % Neut # (Auto) (1.8-7.0) K/uL Lymph # (Auto) (1.0-4.3) K/uL [place] # (Auto) (0.0-0.8) K/uL Eos # (Auto) (0.0-0.7) K/uL Baso # (Auto) (0.0-0.2) K/uL Neutrophils % (Manual) (50-75) % Band Neutrophils % (0-2) % Lymphocytes % (Manual) (20-40) % Monocytes % (Manual) (0-10) % Myelocytes % (0-0) % Platelet Estimate (NORMAL) Hypochromasia (manual) Poikilocytosis (manual Anisocytosis (manual) Ovalocytes [place] Cells Puncture Site pCO2 (35-45) mm/Hg pO2 (80-100) mm/Hg HCO3 (21-28) mmol/L ABG pH (7.35-7.45) ABG Total CO2 (22-28) mmol/L ABG O2 Saturation (95-98) % ABG Base Excess (-2.0-3.0) mmol/L Mathew Test ABG Potassium (3.6-5.2) mmol/L A-a O2 Difference mm/Hg Respiratory Index Sodium (132-148) mmol/l Chloride (98-107) mmol/L Glucose (65-105) mg/dl Lactate (0.7-2.1) mmol/L FiO2 % Potassium (3.6-5.2) mmol/L Carbon Dioxide (22-30) mmol/L Anion Gap (10-20) BUN (7-17) mg/dL Creatinine (0.7-1.2) mg/dL Est GFR ( Amer) Est GFR (Non-Af Amer) Random Glucose (65-105) mg/dL Calcium (8.6-10.4) mg/dl Phosphorus (2.5-4.5) mg/dL Magnesium (1.6-2.3) mg/dL Total Bilirubin (0.2-1.3) mg/dL AST (14-36) U/L ALT (9-52) U/L Alkaline Phosphatase (38-126) U/L Total Protein (6.3-8.3) g/dL Albumin (3.5-5.0) g/dL Globulin (2.2-3.9) gm/dL Albumin/Globulin Ratio (1.0-2.1) Arterial Blood Potassium (3.6-5.2) mmol/L Ur Random Creatinine 41 (20-275) mg/dL Urine Total Volume 24.9 mg/dL Microalb/Creat Ratio 608 H (<30) Laboratory Results - last 24 hr 08/11/18 08/13/18 08/14/18 21:40 14:24 06:26 WBC 15.1 H RBC 3.73 L Hgb 10.7 L Hct 32.3 L MCV 86.5 MCH 28.6 MCHC 33.0 RDW 15.8 H Plt Count 421 H MPV 8.8 Neut % (Auto) 91.9 H Lymph % (Auto) 6.1 L [place] % (Auto) 1.7 Eos % (Auto) 0.1 Baso % (Auto) 0.2 Neut # (Auto) 13.9 H Lymph # (Auto) 0.9 L [place] # (Auto) 0.2 Eos # (Auto) 0.0 Baso # (Auto) 0.0 Neutrophils % (Manual) 93 H Band Neutrophils % 1 Lymphocytes % (Manual) 4 L Monocytes % (Manual) 1 Myelocytes % 1 H Platelet Estimate Normal Hypochromasia (manual) Slight Poikilocytosis (manual Slight Anisocytosis (manual) Slight Ovalocytes Slight [place] Cells Slight Puncture Site Lb pCO2 25 L pO2 67 L HCO3 21.0 ABG pH 7.45 ABG Total CO2 18.2 L ABG O2 Saturation 95.1 ABG Base Excess -4.9 L Mathew Test Na ABG Potassium 2.7 L A-a O2 Difference 151.0 Respiratory Index 2.3 Sodium 151.0 H Chloride 126.0 H Glucose 74 Lactate 0.7 FiO2 35.0 Potassium Carbon Dioxide Anion Gap BUN Creatinine Est GFR ( Amer) Est GFR (Non-Af Amer) Random Glucose Calcium Phosphorus Magnesium Total Bilirubin AST ALT Alkaline Phosphatase Total Protein Albumin Globulin Albumin/Globulin Ratio Arterial Blood Potassium 2.7 L Ur Random Creatinine 41 Urine Total Volume 24.9 Microalb/Creat Ratio 608 H 08/14/18 06:27 WBC RBC Hgb Hct MCV MCH MCHC RDW Plt Count MPV Neut % (Auto) Lymph % (Auto) [place] % (Auto) Eos % (Auto) Baso % (Auto) Neut # (Auto) Lymph # (Auto) [place] # (Auto) Eos # (Auto) Baso # (Auto) Neutrophils % (Manual) Band Neutrophils % Lymphocytes % (Manual) Monocytes % (Manual) Myelocytes % Platelet Estimate Hypochromasia (manual) Poikilocytosis (manual Anisocytosis (manual) Ovalocytes [place]anna Cells Puncture Site pCO2 pO2 HCO3 ABG pH ABG Total CO2 ABG O2 Saturation ABG Base Excess Mathew Test ABG Potassium A-a O2 Difference Respiratory Index Sodium 147 Chloride 114 H Glucose Lactate FiO2 Potassium 4.9 Carbon Dioxide 23 Anion Gap 15 BUN 28 H Creatinine 1.0 Est GFR ( Amer) > 60 Est GFR (Non-Af Amer) 52 Random Glucose 157 H Calcium 8.7 Phosphorus 3.4 Magnesium 2.1 Total Bilirubin 1.2 AST 76 H ALT 61 H Alkaline Phosphatase 234 H D Total Protein 6.6 Albumin 3.3 L D Globulin 3.3 Albumin/Globulin Ratio 1.0 Arterial Blood Potassium Ur Random Creatinine Urine Total Volume Microalb/Creat Ratio Critical Care Progress Note - Nutrition Nutrition: Nutrition Category Date Time Status Liquid Diet [DIET] Diets 08/14/18 Dinner Active Assessment/Plan - Assessment and Plan (Free Text) Plan: Patient was seen and examined during the rounds. Radiological investigation and a labs reviewed with the resident. I agree with the current recommendation and information by the resident. Patient is currently stable. Will try to feed orally if tolerated. Out of bed to chair. Physical therapy
[2018-08-14] MEDS ORDERED: Glucagon Recombinant 1 mg Inj IM ONE (09:00)
[2018-08-14] MEDS ORDERED: Dextrose 50% SYRINGE Inj (50 ml) IV ONE (09:00)
[2018-08-14 09:14] LABS: ANISOCYTOSIS SLIGHT; BANDS 1 % (0-2); BURR CELLS SLIGHT; HYPOCHROMIC SLIGHT; LYMPHOCYTE 4 % (20-40); MONOCYTE 1 % (0-10); MYELOCYTE 1 % (0-0); NEUTROPHIL 93 % (50-75); OVALOCYTES SLIGHT; PLATELET ESTIMATE NORMAL (NORMAL); POIKILOCYTOSIS SLIGHT; TOTAL CELLS COUNTED 100
--- NOTE | 2018-08-14 12:25 | CARD ---
APPROVED REPORT Date of service: 08/11/2018 EKG Measurement Heart [id number] <Conclusion> Normal sinus rhythm Normal ECG
[2018-08-14] MEDS ORDERED: Lactated Ringer's 1,000 ML IV SCH (13:00)
[2018-08-14] MEDS: Acetaminophen IV 1,000 MG in Premixed IV 1 EA IV SCH ×2 (13:16→22:00)
--- NOTE | 2018-08-14 14:43 | CP.PCM.PN ---
Subjective - Date & Time of Evaluation Date of Evaluation: 08/14/18 Time of Evaluation: 11:15 - Subjective Subjective: clinically same Objective - Vital Signs/Intake and Output Vital Signs (last 24 hours): Temp Pulse Resp BP Pulse Ox 98.3 F 99 H 20 136/58 L 97 08/14/18 12:00 08/14/18 14:01 08/14/18 14:01 08/14/18 14:01 08/14/18 14:01 Intake and Output: 08/14/18 08/14/18 06:59 18:59 Intake Total 750 600 Output Total 1330 1215 Balance -580 -615 - Medications Medications: Current Medications Albuterol/Ipratropium (Duoneb 3 Mg/0.5 Mg (3 Ml) Ud) 3 ml INH RQ6 [facility] Last Admin: 08/14/18 13:54 Dose: 3 ml Aspirin (Aspirin Chewable) 81 mg PO DAILY [facility] Last Admin: 08/11/18 10:00 Dose: 81 mg Dextrose (Glutose 15) 0 gm PO ONCE PRN; Protocol PRN Reason: Hypoglycemia Protocol Heparin Sodium (Porcine) (Heparin) 5,000 units SC Q12 [facility] Last Admin: 08/14/18 09:54 Dose: 5,000 units Hydromorphone HCl (Dilaudid) 0.5 mg IVP Q6H PRN PRN Reason: Pain, moderate (4-7) Last Admin: 08/14/18 01:30 Dose: 0.5 mg Meropenem 500 mg/ Sodium (Chloride) 100 mls @ 100 mls/hr IVPB Q8H JOHN; Protocol Last Admin: 08/14/18 13:17 Dose: 100 mls/hr Dextrose (Dextrose 5% In Water 1000 Ml) 1,000 mls @ 0 mls/hr IV .Q0M PRN; Protocol PRN Reason: Hypoglycemia Protocol Acetaminophen 1,000 mg/ (Miscellaneous) 100 mls @ 400 mls/hr IV Q12 [facility] Stop: 08/15/18 11:01 Last Admin: 08/14/18 13:16 Dose: 400 mls/hr Lactated Ringer's (Lactated Ringer's) 1,000 mls @ 100 mls/hr IV .Q10H [facility] Influenza Virus Vaccine (Fluzone Quad [id number]) 60 mcg IM .ONCE ONE Stop: 08/15/18 10:01 Pantoprazole Sodium (Protonix Inj) 40 mg IVP DAILY JOHN Last Admin: 08/14/18 09:54 Dose: 40 mg Pneumococcal Polyvalent Vaccine (Pneumovax 23 Vaccine) 0.5 ml IM .ONCE ONE Stop: 08/15/18 10:01 - Labs Labs: 08/14/18 06:26 08/14/18 06:27 PT 21.1 SECONDS (9.7-12.2) H 08/12/18 05:48 INR 1.9 08/12/18 05:48 APTT 28 SECONDS (21-34) 08/12/18 05:48
[2018-08-14] MEDS: Lactated Ringer's 1,000 ML IV SCH ×2 (15:22→21:23)
--- NOTE | 2018-08-14 15:40 | CP.PCM.PN ---
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 JU resolving Hypertension control with meds as ordered. Maintain hemodynamics stable. Avoid hypotension .hold ACEI/ARB due to recent JU Monitor Input/Output, daily weights and renal function with basic metabolic panel continue with IVF. will supplement Vit D once pt on diet Dose meds/antibiotics for improved GFR. Glycemic control Further work up/management as per primary team Thanks for allowing me to participate in care of your patient. Will follow patient with you. Please call if any Qs. had d/w team Dr Zoltan Velázquez Office: [phone] Reason for consult: Acute Kidney Injury HPI: Pt is a 88 F with hx of COPD, hypertension (years) presented with c omplaints of MDR UTI and concerns for enterovesical fistula. also with worsening pain abdomen with nausea/vomitting, renal consult for JU. pt with baseline cr 0.9-1.1 consistent with CKD [address] abdomen also showing pneumoperitoneum , had bladder perforation. Denies OTC/herbal meds or NSAIDs No recent iodinated contrast exposure. No obvious episodes of low BP. ROS: Cardiovascular: No chest pain. Pulmonary: No shortness of breath Gastrointestinal: no abdominal pain no nausea no vomiting. Genitourinary: No pain while urinating. Denies blood in urine. All other negative except as mentioned in HPI Physical Examination: General Appearance: comfortable, in no acute respiratory distress, co-operative . ill appearing Vitals reviewed and noted as below Head; Atraumatic, normocephalic ENT: no ulcers no thrush. Tongue is midline/DRY. Oropharynx: no rash or ulcers. EYES: Pupils are equal, round and reactive to light accommodation. Eye muscles and extraocular movement intact. Sclera is anicteric. Neck; supple no lymphadenopathy, no thyromegaly or bruit Lungs: Normal respiratory rate/effort. Breath sounds bilateral equal and clear anteriorly Heart: Normal rate. s1s2 normal. No rub or gallop. Extremities: no edema. No varicose veins Neurological: Patient is alert, awake and oriented to person, place and time. No focal deficit. Strength bilateral appropriate and equal Skin: Warm and dry. Normal turgor. No rash. Palpitation: Normal elasticity for age Abdomen: Abdomen is soft. no abdominal tenderness no guarding no rigidity no organomegaly. has LLQ ostomy and Rt SUSY drain + Psych: limited insight and normal affect/mood MSK: no joint tenderness or swelling. Digits and nails normal, no deformity : kidney or bladder not palpable Labs/imaging reviewed. Past medical history, past surgical history, family history, social history, allergy reviewed and noted as below Family hx: no hx of CKD. 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 echo oct 27; normal lvef with moderate AI Objective - Vital Signs/Intake and Output Vital Signs (last 24 hours): Temp Pulse Resp BP Pulse Ox 98.3 F 108 H 22 151/66 H 95 08/14/18 12:00 08/14/18 15:01 08/14/18 15:01 08/14/18 15:01 08/14/18 15:01 Intake and Output: 08/14/18 08/14/18 06:59 18:59 Intake Total 750 650 Output Total 1330 1215 Balance -580 -565 - Medications Medications: Current Medications Albuterol/Ipratropium (Duoneb 3 Mg/0.5 Mg (3 Ml) Ud) 3 ml INH RQ6 [facility] Last Admin: 08/14/18 13:54 Dose: 3 ml Aspirin (Aspirin Chewable) 81 mg PO DAILY [facility] Last Admin: 08/11/18 10:00 Dose: 81 mg Dextrose (Glutose 15) 0 gm PO ONCE PRN; Protocol PRN Reason: Hypoglycemia Protocol Heparin Sodium (Porcine) (Heparin) 5,000 units SC Q12 [facility] Last Admin: 08/14/18 09:54 Dose: 5,000 units Hydromorphone HCl (Dilaudid) 0.5 mg IVP Q6H PRN PRN Reason: Pain, moderate (4-7) Last Admin: 08/14/18 01:30 Dose: 0.5 mg Meropenem 500 mg/ Sodium (Chloride) 100 mls @ 100 mls/hr IVPB Q8H JOHN; Protocol Last Admin: 08/14/18 13:17 Dose: 100 mls/hr Dextrose (Dextrose 5% In Water 1000 Ml) 1,000 mls @ 0 mls/hr IV .Q0M PRN; Protocol PRN Reason: Hypoglycemia Protocol Acetaminophen 1,000 mg/ (Miscellaneous) 100 mls @ 400 mls/hr IV Q12 JOHN Stop: 08/15/18 11:01 Last Admin: 08/14/18 13:16 Dose: 400 mls/hr Lactated Ringer's (Lactated Ringer's) 1,000 mls @ 100 mls/hr IV .Q10H [facility] Last Admin: 08/14/18 15:22 Dose: 100 mls/hr Influenza Virus Vaccine (Fluzone Quad [id number]) 60 mcg IM .ONCE ONE Stop: 08/15/18 10:01 Pantoprazole Sodium (Protonix Inj) 40 mg IVP DAILY [facility] Last Admin: 08/14/18 09:54 Dose: 40 mg Pneumococcal Polyvalent Vaccine (Pneumovax 23 Vaccine) 0.5 ml IM .ONCE ONE Stop: 08/15/18 10:01 - Labs Labs: 08/14/18 06:26 08/14/18 06:27 PT 21.1 SECONDS (9.7-12.2) H 08/12/18 05:48 INR 1.9 08/12/18 05:48 APTT 28 SECONDS (21-34) 08/12/18 05:48
--- NOTE | 2018-08-14 15:54 | CP.PCM.PN ---
Subjective - Date & Time of Evaluation Date of Evaluation: 08/14/18 Time of Evaluation: 07:00 - Subjective Subjective: GENERAL SURGERY CONSULT NOTE FOR DR. COLLINS Patient seen and examined at bedside in ICU. She was extubated yesterday. On BIPAP overnight. Good urine output. No stool output from colostomy yet. Objective - Vital Signs/Intake and Output Vital Signs (last 24 hours): Temp Pulse Resp BP Pulse Ox 98.3 F 108 H 22 151/66 H 95 08/14/18 12:00 08/14/18 15:01 08/14/18 15:01 08/14/18 15:01 08/14/18 15:01 Intake and Output: 08/14/18 08/14/18 06:59 18:59 Intake Total 750 700 Output Total 1330 1475 Balance -580 -775 - Medications Medications: Current Medications Albuterol/Ipratropium (Duoneb 3 Mg/0.5 Mg (3 Ml) Ud) 3 ml INH RQ6 [facility] Last Admin: 08/14/18 13:54 Dose: 3 ml Aspirin (Aspirin Chewable) 81 mg PO DAILY [facility] Last Admin: 08/11/18 10:00 Dose: 81 mg Dextrose (Glutose 15) 0 gm PO ONCE PRN; Protocol PRN Reason: Hypoglycemia Protocol Heparin Sodium (Porcine) (Heparin) 5,000 units SC Q12 [facility] Last Admin: 08/14/18 09:54 Dose: 5,000 units Hydromorphone HCl (Dilaudid) 0.5 mg IVP Q6H PRN PRN Reason: Pain, moderate (4-7) Last Admin: 08/14/18 01:30 Dose: 0.5 mg Meropenem 500 mg/ Sodium (Chloride) 100 mls @ 100 mls/hr IVPB Q8H JOHN; Protocol Last Admin: 08/14/18 13:17 Dose: 100 mls/hr Dextrose (Dextrose 5% In Water 1000 Ml) 1,000 mls @ 0 mls/hr IV .Q0M PRN; Protocol PRN Reason: Hypoglycemia Protocol Acetaminophen 1,000 mg/ (Miscellaneous) 100 mls @ 400 mls/hr IV Q12 [facility] Stop: 08/15/18 11:01 Last Admin: 08/14/18 13:16 Dose: 400 mls/hr Lactated Ringer's (Lactated Ringer's) 1,000 mls @ 100 mls/hr IV .Q10H [facility] Last Admin: 08/14/18 15:22 Dose: 100 mls/hr Influenza Virus Vaccine (Fluzone Quad [id number]) 60 mcg IM .ONCE ONE Stop: 08/15/18 10:01 Pantoprazole Sodium (Protonix Inj) 40 mg IVP DAILY [facility] Last Admin: 08/14/18 09:54 Dose: 40 mg Pneumococcal Polyvalent Vaccine (Pneumovax 23 Vaccine) 0.5 ml IM .ONCE ONE Stop: 08/15/18 10:01 - Labs Labs: 08/14/18 06:26 08/14/18 06:27 PT 21.1 SECONDS (9.7-12.2) H 08/12/18 05:48 INR 1.9 08/12/18 05:48 APTT 28 SECONDS (21-34) 08/12/18 05:48 - Constitutional Appears: Non-toxic, No Acute Distress, Chronically Ill - Respiratory Exam Respiratory Exam: NORMAL BREATHING PATTERN. absent: Respiratory Distress - Cardiovascular Exam Cardiovascular Exam: +S1, +S2 - GI/Abdominal Exam GI & Abdominal Exam: Soft, Tenderness (tender around incisional area). absent: Distended, Firm, Guarding, Rigid, Rebound Additional comments: Luis in place Fish in place Colostomy with no stool output yet - Neurological Exam Neurological Exam: Alert, Awake, Oriented x3 - Psychiatric Exam Psychiatric exam: Normal Affect, Normal Mood Assessment and Plan - Assessment and Plan (Free Text) Assessment: 88F with perforated viscus s/p Ex-Lap with repair of bladder perforation, partial sigmoid resection and end sigmoid colostomy; POD#3 Plan: - Clear liquid diet - Continue to monitor for bowel function - Cont to monitor UOP, Fish to remain in place for 2-3 weeks - PT ordered - Encourage ambulation and IS use - DVT PPx: Heparin - Discussed plan with Dr. Beny Pickard PGY-4
[2018-08-15] MEDS: Lactated Ringer's 1,000 ML IV SCH ×2 (01:16→12:29)
[2018-08-15] MEDS: Albuterol-Ipratrop 3 mg / 0.5 (3 ml) UD INH SCH ×3 (01:37→19:34)
[2018-08-15] MEDS: Meropenem 500 MG in Sodium Chloride 0.9% 100 ML IVPB SCH ×2 (03:08→11:14)
[2018-08-15] MEDS: HYDROmorphone 0.5 mg/0.5 ml ISec IVP PRN ×2 (03:30→18:12)
[2018-08-15 06:15] LABS: BASO % 0.2 % (0.0-2.0); HEMOGLOBIN 11.6 g/dL (11.0-16.0); LYMPH # 2.1 K/uL (1.0-4.3); LYMPH % 8.4 % (20.0-40.0); MEAN CELL VOLUME 86.2 fL (81.0-99.0); MEAN CORPUSCULAR HEMOGLOBIN 28.8 pg (27.0-31.0); MEAN CORPUSCULAR HGB CONC 33.4 g/dL (33.0-37.0); MEAN PLATELET VOLUME 8.2 fL (7.2-11.7); MONO # 1.3 K/uL (0.0-0.8); MONO % 5.2 % (0.0-10.0); NEUT # 21.1 K/uL (1.8-7.0); NEUT % 86.2 % (50.0-75.0); NRBC % 0.1 % (0.0-2.0); PLATELET COUNT 446 K/uL (130-400); RBC 4.04 Mil/uL (3.80-5.20); RED CELL DISTRIBUTION WIDTH 15.3 % (11.5-14.5); WHITE BLOOD COUNT 24.5 K/uL (4.8-10.8)
[2018-08-15 06:54] LABS: ALT/SGPT 60 U/L (9-52); AST/SGOT 37 U/L (14-36); BLOOD UREA NITROGEN 22 mg/dL (7-17); CALCIUM 8.3 mg/dl (8.6-10.4); GFR NON-AFRICAN AMERICAN 59
--- NOTE | 2018-08-15 07:22 | CP.CCUPN ---
CCU Subjective - Physician Review Events Since Last Encounter (Free Text): 08/15/18 07:20 patient restless over night Subjective (Free Text): 08/15/18 07:21 Patient was seen and examined this morning. She is alert and complaining of significant pain. She is tolerating PO intake of clear liquids. She is saturating well on NC. Critical Care Time Spent (in minutes): 35 CCU Objective - Vital Signs / Intake & Output Vital Signs (Last 4 hours): Vital Signs Temp Pulse Resp BP Pulse Ox 08/15/18 06:02 96 H 20 161/75 H 97 08/15/18 05:00 86 13 99 08/15/18 04:02 91 H 18 156/66 H 99 08/15/18 04:00 97.8 F Intake and Output (Last 8hrs): Intake & Output 08/14/18 08/15/18 08/15/18 22:59 06:59 14:59 Intake Total 1225 950 Output Total 1300 920 Balance -75 30 Weight 116 lb 1.6 oz Intake: Intake, IV Amount 975 800 Left Wrist 0 Right Forearm 475 800 Right Hand 500 Oral 250 150 Output: Drainage 75 70 Right Abdomen 75 70 Urine 1225 850 Urethral (Fish) 1225 850 - Physical Exam Head: Positive for: Atraumatic, Normocephalic Pupils: Positive for: PERRL Mouth: Positive for: Moist Mucous Membranes Respiratory/Chest: Positive for: Good Air Exchange, Rales Cardiovascular: Positive for: Regular Rate and Rhythm, Normal S1, S2 Abdomen: Positive for: Ostomy Tubes (colostomy LLQ), Other (decrease Bowel sounds, NG to suction, SUSY drain RLQ) Genitourinary/Pelvic Exam: Positive for: Other (Fish) Upper Extremity: Positive for: Normal Inspection Lower Extremity: Positive for: Normal Inspection. Negative for: Edema Skin: Positive for: Warm, Dry, Normal Color Psychiatric: Positive for: Alert - Medications Active Medications: Active Medications Generic Name Dose Route Start Last Admin Trade Name Freq PRN Reason Stop Dose Admin Albuterol/Ipratropium 3 ml 08/11/18 20:00 08/15/18 01:37 Duoneb 3 Mg/0.5 Mg (3 Ml) Ud INH 3 ml RQ6 JOHN Administration Aspirin 81 mg 08/11/18 10:00 08/11/18 10:00 Aspirin Chewable PO 81 mg DAILY JOHN Administration Dextrose 0 gm 08/14/18 09:00 Glutose 15 PO ONCE PRN Hypoglycemia Protocol Protocol Heparin Sodium (Porcine) 5,000 units 08/11/18 10:00 08/14/18 21:25 Heparin SC 5,000 units Q12 JOHN Administration Hydromorphone HCl 0.5 mg 08/11/18 19:29 08/15/18 03:30 Dilaudid IVP 0.5 mg Q6H PRN Administration Pain, moderate (4-7) Meropenem 500 mg/ Sodium 100 mls @ 100 mls/hr 08/10/18 19:45 08/15/18 03:08 Chloride IVPB 100 mls/hr Q8H JOHN Administration Protocol Dextrose 1,000 mls @ 0 mls/hr 08/14/18 09:00 Dextrose 5% In Water 1000 Ml IV .Q0M PRN Hypoglycemia Protocol Protocol Per Protocol Acetaminophen 1,000 mg/ 100 mls @ 400 mls/hr 08/14/18 11:00 08/14/18 22:00 Miscellaneous IV 08/15/18 11:01 400 mls/hr Q12 JOHN Administration Lactated Ringer's 1,000 mls @ 100 mls/hr 08/14/18 14:12 08/15/18 01:16 Lactated Ringer's IV Not Given .Q10H [facility] Influenza Virus Vaccine 60 mcg 08/15/18 10:00 Fluzone Quad [id number] IM 08/15/18 10:01 .ONCE ONE Pantoprazole Sodium 40 mg 08/12/18 10:00 08/14/18 09:54 Protonix Inj IVP 40 mg DAILY JOHN Administration Pneumococcal Polyvalent Vaccine 0.5 ml 08/15/18 10:00 Pneumovax 23 Vaccine IM 08/15/18 10:01 .ONCE ONE - Patient Studies Lab Studies: Microbiology Studies 08/10/18 18:20 Blood Culture - Preliminary Blood NO GROWTH AFTER 4 DAYS 08/10/18 17:35 Blood Culture - Preliminary Blood NO GROWTH AFTER 4 DAYS Lab Studies 08/15/18 08/15/18 08/15/18 Range/Units 06:08 06:08 05:49 WBC 24.5 H D (4.8-10.8) K/uL RBC 4.04 (3.80-5.20) Mil/uL Hgb 11.6 (11.0-16.0) g/dL Hct 34.8 (34.0-47.0) % MCV 86.2 (81.0-99.0) fL MCH 28.8 (27.0-31.0) pg MCHC 33.4 (33.0-37.0) g/dL RDW 15.3 H (11.5-14.5) % Plt Count 446 H (130-400) K/uL MPV 8.2 (7.2-11.7) fL Neut % (Auto) 86.2 H (50.0-75.0) % Lymph % (Auto) 8.4 L (20.0-40.0) % [place] % (Auto) 5.2 (0.0-10.0) % Eos % (Auto) 0.0 (0.0-4.0) % Baso % (Auto) 0.2 (0.0-2.0) % Neut # (Auto) 21.1 H (1.8-7.0) K/uL Lymph # (Auto) 2.1 (1.0-4.3) K/uL [place] # (Auto) 1.3 H (0.0-0.8) K/uL Eos # (Auto) 0.0 (0.0-0.7) K/uL Baso # (Auto) 0.0 (0.0-0.2) K/uL Neutrophils % (Manual) (50-75) % Band Neutrophils % (0-2) % Lymphocytes % (Manual) (20-40) % Monocytes % (Manual) (0-10) % Myelocytes % (0-0) % Platelet Estimate (NORMAL) Hypochromasia (manual) Poikilocytosis (manual Anisocytosis (manual) Ovalocytes Warner Cells Sodium 146 (132-148) mmol/L Potassium 3.6 (3.6-5.2) mmol/L Chloride 111 H (98-107) mmol/L Carbon Dioxide 28 (22-30) mmol/L Anion Gap 10 (10-20) BUN 22 H (7-17) mg/dL Creatinine 0.9 (0.7-1.2) mg/dL Est GFR ( Amer) > 60 Est GFR (Non-Af Amer) 59 POC Glucose (mg/dL) 126 H (65-110) mg/dL Random Glucose 138 H (65-105) mg/dL Calcium 8.3 L (8.6-10.4) mg/dl Phosphorus 2.6 (2.5-4.5) mg/dL Magnesium 1.8 (1.6-2.3) mg/dL Total Bilirubin 0.6 (0.2-1.3) mg/dL AST 37 H D (14-36) U/L ALT 60 H (9-52) U/L Alkaline Phosphatase 228 H (38-126) U/L Total Protein 6.1 L (6.3-8.3) g/dL Albumin 3.0 L (3.5-5.0) g/dL Globulin 3.1 (2.2-3.9) gm/dL Albumin/Globulin Ratio 1.0 (1.0-2.1) 08/14/18 08/14/18 08/14/18 Range/Units 23:38 17:31 11:22 WBC (4.8-10.8) K/uL RBC (3.80-5.20) Mil/uL Hgb (11.0-16.0) g/dL Hct (34.0-47.0) % MCV (81.0-99.0) fL MCH (27.0-31.0) pg MCHC (33.0-37.0) g/dL RDW (11.5-14.5) % Plt Count (130-400) K/uL MPV (7.2-11.7) fL Neut % (Auto) (50.0-75.0) % Lymph % (Auto) (20.0-40.0) % [place] % (Auto) (0.0-10.0) % Eos % (Auto) (0.0-4.0) % Baso % (Auto) (0.0-2.0) % Neut # (Auto) (1.8-7.0) K/uL Lymph # (Auto) (1.0-4.3) K/uL [place] # (Auto) (0.0-0.8) K/uL Eos # (Auto) (0.0-0.7) K/uL Baso # (Auto) (0.0-0.2) K/uL Neutrophils % (Manual) (50-75) % Band Neutrophils % (0-2) % Lymphocytes % (Manual) (20-40) % Monocytes % (Manual) (0-10) % Myelocytes % (0-0) % Platelet Estimate (NORMAL) Hypochromasia (manual) Poikilocytosis (manual Anisocytosis (manual) Ovalocytes Warner Cells Sodium (132-148) mmol/L Potassium (3.6-5.2) mmol/L Chloride (98-107) mmol/L Carbon Dioxide (22-30) mmol/L Anion Gap (10-20) BUN (7-17) mg/dL Creatinine (0.7-1.2) mg/dL Est GFR ( Amer) Est GFR (Non-Af Amer) POC Glucose (mg/dL) 165 H 134 H 134 H (65-110) mg/dL Random Glucose (65-105) mg/dL Calcium (8.6-10.4) mg/dl Phosphorus (2.5-4.5) mg/dL Magnesium (1.6-2.3) mg/dL Total Bilirubin (0.2-1.3) mg/dL AST (14-36) U/L ALT (9-52) U/L Alkaline Phosphatase (38-126) U/L Total Protein (6.3-8.3) g/dL Albumin (3.5-5.0) g/dL Globulin (2.2-3.9) gm/dL Albumin/Globulin Ratio (1.0-2.1) 08/14/18 Range/Units 06:26 WBC (4.8-10.8) K/uL RBC (3.80-5.20) Mil/uL Hgb (11.0-16.0) g/dL Hct (34.0-47.0) % MCV (81.0-99.0) fL MCH (27.0-31.0) pg MCHC (33.0-37.0) g/dL RDW (11.5-14.5) % Plt Count (130-400) K/uL MPV (7.2-11.7) fL Neut % (Auto) (50.0-75.0) % Lymph % (Auto) (20.0-40.0) % [place] % (Auto) (0.0-10.0) % Eos % (Auto) (0.0-4.0) % Baso % (Auto) (0.0-2.0) % Neut # (Auto) (1.8-7.0) K/uL Lymph # (Auto) (1.0-4.3) K/uL [place] # (Auto) (0.0-0.8) K/uL Eos # (Auto) (0.0-0.7) K/uL Baso # (Auto) (0.0-0.2) K/uL Neutrophils % (Manual) 93 H (50-75) % Band Neutrophils % 1 (0-2) % Lymphocytes % (Manual) 4 L (20-40) % Monocytes % (Manual) 1 (0-10) % Myelocytes % 1 H (0-0) % Platelet Estimate Normal (NORMAL) Hypochromasia (manual) Slight Poikilocytosis (manual Slight Anisocytosis (manual) Slight Ovalocytes Slight Warner Cells Slight Sodium (132-148) mmol/L Potassium (3.6-5.2) mmol/L Chloride (98-107) mmol/L Carbon Dioxide (22-30) mmol/L Anion Gap (10-20) BUN (7-17) mg/dL Creatinine (0.7-1.2) mg/dL Est GFR ( Amer) Est GFR (Non-Af Amer) POC Glucose (mg/dL) (65-110) mg/dL Random Glucose (65-105) mg/dL Calcium (8.6-10.4) mg/dl Phosphorus (2.5-4.5) mg/dL Magnesium (1.6-2.3) mg/dL Total Bilirubin (0.2-1.3) mg/dL AST (14-36) U/L ALT (9-52) U/L Alkaline Phosphatase (38-126) U/L Total Protein (6.3-8.3) g/dL Albumin (3.5-5.0) g/dL Globulin (2.2-3.9) gm/dL Albumin/Globulin Ratio (1.0-2.1) Laboratory Results - last 24 hr 08/14/18 08/14/18 08/14/18 06:26 11:22 17:31 WBC RBC Hgb Hct MCV MCH MCHC RDW Plt Count MPV Neut % (Auto) Lymph % (Auto) [place] % (Auto) Eos % (Auto) Baso % (Auto) Neut # (Auto) Lymph # (Auto) [place] # (Auto) Eos # (Auto) Baso # (Auto) Neutrophils % (Manual) 93 H Band Neutrophils % 1 Lymphocytes % (Manual) 4 L Monocytes % (Manual) 1 Myelocytes % 1 H Platelet Estimate Normal Hypochromasia (manual) Slight Poikilocytosis (manual Slight Anisocytosis (manual) Slight Ovalocytes Slight Warner Cells Slight Sodium Potassium Chloride Carbon Dioxide Anion Gap BUN Creatinine Est GFR ( Amer) Est GFR (Non-Af Amer) POC Glucose (mg/dL) 134 H 134 H Random Glucose Calcium Phosphorus Magnesium Total Bilirubin AST ALT Alkaline Phosphatase Total Protein Albumin Globulin Albumin/Globulin Ratio 08/14/18 08/15/18 08/15/18 23:38 05:49 06:08 WBC 24.5 H D RBC 4.04 Hgb 11.6 Hct 34.8 MCV 86.2 MCH 28.8 MCHC 33.4 RDW 15.3 H Plt Count 446 H MPV 8.2 Neut % (Auto) 86.2 H Lymph % (Auto) 8.4 L [place] % (Auto) 5.2 Eos % (Auto) 0.0 Baso % (Auto) 0.2 Neut # (Auto) 21.1 H Lymph # (Auto) 2.1 [place] # (Auto) 1.3 H Eos # (Auto) 0.0 Baso # (Auto) 0.0 Neutrophils % (Manual) Band Neutrophils % Lymphocytes % (Manual) Monocytes % (Manual) Myelocytes % Platelet Estimate Hypochromasia (manual) Poikilocytosis (manual Anisocytosis (manual) Ovalocytes Warner Cells Sodium Potassium Chloride Carbon Dioxide Anion Gap BUN Creatinine Est GFR ( Amer) Est GFR (Non-Af Amer) POC Glucose (mg/dL) 165 H 126 H Random Glucose Calcium Phosphorus Magnesium Total Bilirubin AST ALT Alkaline Phosphatase Total Protein Albumin Globulin Albumin/Globulin Ratio 08/15/18 06:08 WBC RBC Hgb Hct MCV MCH MCHC RDW Plt Count MPV Neut % (Auto) Lymph % (Auto) [place] % (Auto) Eos % (Auto) Baso % (Auto) Neut # (Auto) Lymph # (Auto) [place] # (Auto) Eos # (Auto) Baso # (Auto) Neutrophils % (Manual) Band Neutrophils % Lymphocytes % (Manual) Monocytes % (Manual) Myelocytes % Platelet Estimate Hypochromasia (manual) Poikilocytosis (manual Anisocytosis (manual) Ovalocytes Warner Cells Sodium 146 Potassium 3.6 Chloride 111 H Carbon Dioxide 28 Anion Gap 10 BUN 22 H Creatinine 0.9 Est GFR ( Amer) > 60 Est GFR (Non-Af Amer) 59 POC Glucose (mg/dL) Random Glucose 138 H Calcium 8.3 L Phosphorus 2.6 Magnesium 1.8 Total Bilirubin 0.6 AST 37 H D ALT 60 H Alkaline Phosphatase 228 H Total Protein 6.1 L Albumin 3.0 L Globulin 3.1 Albumin/Globulin Ratio 1.0 Fingerstick Blood Sugar Results: 126 Results Reviewed to Date: Yes Review of Systems - Review of Systems Systems not reviewed;Unavailable: Acuity of Condition (pain) Critical Care Progress Note - Extremities/Vascular Does the Patient have a Central Venous Catheter?: No Does the Patient need a Central Venous Catheter?: No Does the Patient have a Fish Catheter?: Yes Does the Patient need a Fish Catheter?: Yes Catheter Insertion Criteria: Urologic Study/Urologic/Gynecologic - Prophylaxis GI Prophylaxis GI: PPI - Prophylaxis DVT Prophylaxis DVT: Heparin SQ - Nutrition Nutrition: Nutrition Category Date Time Status Liquid Diet [DIET] Diets 08/14/18 Dinner Active Assessment/Plan - Assessment and Plan (Free Text) Assessment: Patient is an 88 yo female with a history of COPD and HTN who presented with abdominal pain and urinary symptoms. She was found to have pneumoperitoneum. She underwent ex lap on 08/11 with sigmoid resection, bladder perforation repair, and end colostomy placement. Patient was extubated 08/13. NGT removed 08/14. Patient is tolerating PO intake. She still has significant pain. No colostomy output. Fish in place; must remain 2-3 weeks. She is able to be transferred to telemetry unit. Plan: Neuro: - No acute issues - Monitor mental status (post-op) CV: - Sinus tachycardia- pain, albuterol - Monitor vitals - ASA 81 mg PO daily Pulm: - Maintain spO2>92%- NC or BiPAP PRN - Duoneb Q6H GI: - POD4- ex lap - Acetaminophen 1000 mg IV Q12H - Dilaudid 0.5 mg IV Q4H PRN - Clear liquids- advance once colostomy output - Surgery consulted (Beny) : - JU resolved - Discontinue IVF - I's & O's - Replete electolytes PRN - Fish- will stay in 2-3 weeks - Albuminuria- microalb/Cr ration 608, urine total protein 3619 - Nephrology consulted (Melania) - Urology consulted (Kendrick) Endo: - Maintain euglycemia - Accuchecks ACHS - Hypoglycemia protocol Heme: - Hgb stable post-op (11.6) - Monitor H&H ID: - Leukocytosis (24.5) - Elevated Lactate resolved (4.1->0.7) - Urine and peritoneal fluid (intra-op)- ESBL - Blood Cx no growth >4 days - Meropenem 500 mg IV Q8H- started / - ID consulted (Ju) PPx: VTE: heparin 5000 units SC Q12H GI: PTX 40 mg IV daily PT/OT/ST- OOB to chair Code status: full code Case discussed with attending, Dr. Wade. PGY-1 Adelia Weber D.O.
[2018-08-15] MEDS ORDERED: HYDROmorphone 0.5 mg/0.5 ml ISec IVP STA (08:40)
[2018-08-15 09:28] LABS: LYMPHOCYTE 6 % (20-40); MONOCYTE 4 % (0-10); MYELOCYTE 1 % (0-0); NEUTROPHIL 89 % (50-75); TOTAL CELLS COUNTED 100
[2018-08-15 09:29] LABS: PLATELET ESTIMATE NORMAL (NORMAL)
[2018-08-15 09:30] LABS: HYPOCHROMIC SLIGHT
--- NOTE | 2018-08-15 09:35 | CP.PCM.PN ---
Subjective - Date & Time of Evaluation Date of Evaluation: 08/15/18 Time of Evaluation: 09:23 - Subjective Subjective: Surgery: Dr. Swan Pt seen and examined. No acute overnight events. Pt remains in the ICU, however she's now on nasal canula and tolerating liquids. Admits to some pain around the incision, denies nausea/vomiting. No fevers/chills recorded overnight. Objective - Vital Signs/Intake and Output Vital Signs (last 24 hours): Temp Pulse Resp BP Pulse Ox 97.8 F 98 H 24 150/77 99 08/15/18 04:00 08/15/18 08:03 08/15/18 08:03 08/15/18 08:03 08/15/18 08:03 Intake and Output: 08/15/18 08/15/18 06:59 18:59 Intake Total 1675 200 Output Total 1445 Balance 230 200 - Medications Medications: Current Medications Albuterol/Ipratropium (Duoneb 3 Mg/0.5 Mg (3 Ml) Ud) 3 ml INH RQ6 [facility] Last Admin: 08/15/18 01:37 Dose: 3 ml Aspirin (Aspirin Chewable) 81 mg PO DAILY [facility] Last Admin: 08/11/18 10:00 Dose: 81 mg Dextrose (Glutose 15) 0 gm PO ONCE PRN; Protocol PRN Reason: Hypoglycemia Protocol Heparin Sodium (Porcine) (Heparin) 5,000 units SC Q12 [facility] Last Admin: 08/14/18 21:25 Dose: 5,000 units Hydromorphone HCl (Dilaudid) 0.5 mg IVP Q4H PRN PRN Reason: Pain, moderate (4-7) Meropenem 500 mg/ Sodium (Chloride) 100 mls @ 100 mls/hr IVPB Q8H [facility]; Protocol Last Admin: 08/15/18 03:08 Dose: 100 mls/hr Dextrose (Dextrose 5% In Water 1000 Ml) 1,000 mls @ 0 mls/hr IV .Q0M PRN; Protocol PRN Reason: Hypoglycemia Protocol Acetaminophen 1,000 mg/ (Miscellaneous) 100 mls @ 400 mls/hr IV Q12 [facility] Stop: 08/15/18 11:01 Last Admin: 08/14/18 22:00 Dose: 400 mls/hr Lactated Ringer's (Lactated Ringer's) 1,000 mls @ 100 mls/hr IV .Q10H [facility] Last Admin: 08/15/18 01:16 Dose: Not Given Influenza Virus Vaccine (Fluzone Quad [id number]) 60 mcg IM .ONCE ONE Stop: 08/15/18 10:01 Pantoprazole Sodium (Protonix Inj) 40 mg IVP DAILY [facility] Last Admin: 08/14/18 09:54 Dose: 40 mg Pneumococcal Polyvalent Vaccine (Pneumovax 23 Vaccine) 0.5 ml IM .ONCE ONE Stop: 08/15/18 10:01 - Labs Labs: 08/15/18 06:08 08/15/18 06:08 PT 21.1 SECONDS (9.7-12.2) H 08/12/18 05:48 INR 1.9 08/12/18 05:48 APTT 28 SECONDS (21-34) 08/12/18 05:48 - Constitutional Appears: Well, No Acute Distress - Head Exam Head Exam: ATRAUMATIC, NORMOCEPHALIC - ENT Exam ENT Exam: Mucous Membranes Moist - Respiratory Exam Respiratory Exam: NORMAL BREATHING PATTERN - Cardiovascular Exam Cardiovascular Exam: Tachycardia - GI/Abdominal Exam GI & Abdominal Exam: Soft, Tenderness (around midline incision; clean/dry/inta ct. Luis with seropurulent drainage). absent: Guarding, Rebound - Neurological Exam Neurological Exam: Alert, Awake, Oriented x3 - Skin Skin Exam: Dry, Warm Assessment and Plan - Assessment and Plan (Free Text) Assessment: 88F with perforated viscus s/p Ex-Lap with repair of bladder perforation and partial sigmoid resection with end colostomy; POD#4 Plan: - monitor ostomy function - will advance diet slowly once having output in ostomy - monitor UOP; champion to stay in place for 2-3 weeks post-op - cont IV ABX - encourage out of bed to chair - d/w Dr. Beny Rogers
[2018-08-15] MEDS: Acetaminophen IV 1,000 MG in Premixed IV 1 EA IV SCH (09:50)
[2018-08-15] MEDS ORDERED: Pneumococcal 23-Valent Vaccine IM ONE (10:00)
[2018-08-15] MEDS ORDERED: Influenza Vaccine 60 MCG/0.5 ML SYR (3 yr & up) IM ONE (10:00)
--- NOTE | 2018-08-15 10:58 | CP.PCM.PN ---
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 JU resolving Hypertension control with meds as ordered. Maintain hemodynamics stable. Avoid hypotension .hold ACEI/ARB due to recent JU Monitor Input/Output, daily weights and renal function with basic metabolic panel continue with IVF. will supplement Vit D Dose meds/antibiotics for improved GFR. Glycemic control Further work up/management as per primary team Thanks for allowing me to participate in care of your patient. Will sign off and follow patient with you further PRN basis. Please call if any Qs. had d/w team Dr Zoltan Velázquez Office: [phone] Reason for consult: Acute Kidney Injury HPI: Pt is a 88 F with hx of COPD, hypertension (years) presented with complaints of MDR UTI and concerns for enterovesical fistula. also with worsening pain abdomen with nausea/vomitting, renal consult for JU. pt with baseline cr 0.9-1.1 consistent with CKD [address] abdomen also showing pneumoperitoneum , had bladder perforation. Denies OTC/herbal meds or NSAIDs No recent iodinated contrast exposure. No obvious episodes of low BP. ROS: Cardiovascular: No chest pain. Pulmonary: No shortness of breath Gastrointestinal: no abdominal pain no nausea no vomiting. Genitourinary: No pain while urinating. Denies blood in urine. All other negative except as mentioned in HPI Physical Examination: General Appearance: comfortable, in no acute respiratory distress, co-operative . better appearing Vitals reviewed and noted as below Head; Atraumatic, normocephalic ENT: no ulcers no thrush. Tongue is midline/DRY. Oropharynx: no rash or ulcers. EYES: Pupils are equal, round and reactive to light accommodation. Eye muscles and extraocular movement intact. Sclera is anicteric. Neck; supple no lymphadenopathy, no thyromegaly or bruit Lungs: Normal respiratory rate/effort. Breath sounds bilateral equal and clear anteriorly Heart: Increased rate. s1s2 normal. No rub or gallop. Extremities: no edema. No varicose veins Neurological: Patient is alert, awake and oriented to person, place and time. No focal deficit. Strength bilateral appropriate and equal Skin: Warm and dry. Normal turgor. No rash. Palpitation: Normal elasticity for age Abdomen: Abdomen is soft. no abdominal tenderness no guarding no rigidity no organomegaly. has LLQ ostomy and Rt drain + Psych: limited insight and normal affect/mood MSK: no joint tenderness or swelling. Digits and nails normal, no deformity : kidney or bladder not palpable Labs/imaging reviewed. Past medical history, past surgical history, family history, social history, allergy reviewed and noted as below Family hx: no hx of CKD. 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 echo oct 27; normal lvef with moderate AI Objective - Vital Signs/Intake and Output Vital Signs (last 24 hours): Temp Pulse Resp BP Pulse Ox 97.8 F 98 H 24 150/77 99 08/15/18 04:00 08/15/18 08:03 08/15/18 08:03 08/15/18 08:03 08/15/18 08:03 Intake and Output: 08/15/18 08/15/18 06:59 18:59 Intake Total 1675 200 Output Total 1445 Balance 230 200 - Medications Medications: Current Medications Albuterol/Ipratropium (Duoneb 3 Mg/0.5 Mg (3 Ml) Ud) 3 ml INH RQ6 [facility] Last Admin: 08/15/18 01:37 Dose: 3 ml Aspirin (Aspirin Chewable) 81 mg PO DAILY [facility] Last Admin: 08/11/18 10:00 Dose: 81 mg Dextrose (Glutose 15) 0 gm PO ONCE PRN; Protocol PRN Reason: Hypoglycemia Protocol Heparin Sodium (Porcine) (Heparin) 5,000 units SC Q12 [facility] Last Admin: 08/15/18 09:51 Dose: 5,000 units Hydromorphone HCl (Dilaudid) 0.5 mg IVP Q4H PRN PRN Reason: Pain, moderate (4-7) Meropenem 500 mg/ Sodium (Chloride) 100 mls @ 100 mls/hr IVPB Q8H [facility]; Protocol Last Admin: 08/15/18 03:08 Dose: 100 mls/hr Dextrose (Dextrose 5% In Water 1000 Ml) 1,000 mls @ 0 mls/hr IV .Q0M PRN; Protocol PRN Reason: Hypoglycemia Protocol Acetaminophen 1,000 mg/ (Miscellaneous) 100 mls @ 400 mls/hr IV Q12 [facility] Stop: 08/15/18 11:01 Last Admin: 08/15/18 09:50 Dose: 400 mls/hr Pantoprazole Sodium (Protonix Inj) 40 mg IVP DAILY [facility] Last Admin: 08/15/18 09:50 Dose: 40 mg - Labs Labs: 08/15/18 06:08 08/15/18 06:08 PT 21.1 SECONDS (9.7-12.2) H 08/12/18 05:48 INR 1.9 08/12/18 05:48 APTT 28 SECONDS (21-34) 08/12/18 05:48
--- NOTE | 2018-08-15 12:03 | CP.PCM.PN ---
Subjective - Date & Time of Evaluation Date of Evaluation: 08/15/18 Time of Evaluation: 09:00 - Subjective Subjective: events noted wbc elevated merrem adjusted may need repeat ct abd Objective - Vital Signs/Intake and Output Vital Signs (last 24 hours): Temp Pulse Resp BP Pulse Ox 97.8 F 98 H 24 150/77 99 08/15/18 04:00 08/15/18 08:03 08/15/18 08:03 08/15/18 08:03 08/15/18 08:03 Intake and Output: 08/15/18 08/15/18 06:59 18:59 Intake Total 1675 200 Output Total 1445 Balance 230 200 - Medications Medications: Current Medications Albuterol/Ipratropium (Duoneb 3 Mg/0.5 Mg (3 Ml) Ud) [address] [facility] Last Admin: 08/15/18 01:37 Dose: 3 ml Aspirin (Aspirin Chewable) [address] [facility] Last Admin: 08/11/18 10:00 Dose: 81 mg Dextrose (Glutose 15) 0 gm PO ONCE PRN; Protocol PRN Reason: Hypoglycemia Protocol Ergocalciferol (Drisdol 50,000 Intl Units Cap) [address] [facility] Heparin Sodium (Porcine) (Heparin) 5,[address] [facility] Last Admin: 08/15/18 09:51 Dose: 5,000 units Hydromorphone HCl (Dilaudid) 0.5 mg IVP Q4H PRN PRN Reason: Pain, moderate (4-7) Dextrose (Dextrose 5% In Water 1000 Ml) 1,000 mls @ 0 mls/hr IV .Q0M PRN; Protocol PRN Reason: Hypoglycemia Protocol Pantoprazole Sodium (Protonix Inj) [address] [facility] Last Admin: 08/15/18 09:50 Dose: 40 mg - Labs Labs: 08/15/18 06:08 08/15/18 06:08 PT 21.1 SECONDS (9.7-12.2) H 08/12/18 05:48 INR 1.9 08/12/18 05:48 APTT 28 SECONDS (21-34) 08/12/18 05:48 Assessment and Plan (1) Acute renal insufficiency Status: Acute (2) Dehydration Status: Acute (3) History of ESBL E. coli infection Status: Acute (4) UTI (urinary tract infection) Status: Acute (5) COPD exacerbation Status: Acute (6) Rogerson-vesical fistula Status: Acute
[2018-08-15] MEDS: (Novolin R) Insulin Human Regular 100 units/ml vial SC SCH ×2 (17:00→22:08)
--- NOTE | 2018-08-15 21:23 | CP.PCM.PN ---
Subjective - Date & Time of Evaluation Date of Evaluation: 08/15/18 Time of Evaluation: 10:15 - Subjective Subjective: clinically same Objective - Vital Signs/Intake and Output Vital Signs (last 24 hours): Temp Pulse Resp BP Pulse Ox 98.5 F 96 H 20 158/81 H 99 08/15/18 16:00 08/15/18 18:00 08/15/18 16:00 08/15/18 16:00 08/15/18 16:00 Intake and Output: 08/15/18 08/16/18 18:59 06:59 Intake Total 2440 Output Total 940 Balance 1500 - Medications Medications: Current Medications Albuterol/Ipratropium (Duoneb 3 Mg/0.5 Mg (3 Ml) Ud) 3 ml INH RQ6 [facility] Last Admin: 08/15/18 19:34 Dose: 3 ml Aspirin (Aspirin Chewable) 81 mg PO DAILY [facility] Last Admin: 08/11/18 10:00 Dose: 81 mg Dextrose (Glutose 15) 0 gm PO ONCE PRN; Protocol PRN Reason: Hypoglycemia Protocol Ergocalciferol (Drisdol 50,000 Intl Units Cap) 1 cap PO Q7D [facility] Heparin Sodium (Porcine) (Heparin) 5,000 units SC Q12 [facility] Last Admin: 08/15/18 09:51 Dose: 5,000 units Hydromorphone HCl (Dilaudid) 0.5 mg IVP Q4H PRN PRN Reason: Pain, moderate (4-7) Last Admin: 08/15/18 18:12 Dose: 0.5 mg Dextrose (Dextrose 5% In Water 1000 Ml) 1,000 mls @ 0 mls/hr IV .Q0M PRN; Protocol PRN Reason: Hypoglycemia Protocol Meropenem 1 gm/ Sodium (Chloride) 100 mls @ 100 mls/hr IVPB Q12H [facility]; Protocol Insulin Human Regular (Novolin R) 0 unit SC ACHS [facility]; Protocol Last Admin: 08/15/18 17:00 Dose: Not Given Pantoprazole Sodium (Protonix Inj) 40 mg IVP DAILY [facility] Last Admin: 08/15/18 09:50 Dose: 40 mg - Labs Labs: 08/15/18 06:08 08/15/18 06:08 PT 21.1 SECONDS (9.7-12.2) H 08/12/18 05:48 INR 1.9 08/12/18 05:48 APTT 28 SECONDS (21-34) 08/12/18 05:48
--- NOTE | 2018-08-15 21:50 | CON ---
DATE: 08/11/2018 CHIEF COMPLAINT: Pelvic pain. HISTORY OF PRESENT ILLNESS: The patient was referred to our office, yet to be seen in mid 07/2018 in the [facility] Emergency Room with resistant UTI. The UTI showed E. coli ESBL, which is sensitive to Macrodantin. The patient said that she took Macrodantin as directed, but the pain did not improve. She was seen in our office where the urine showed evidence of wbc's. We advised the patient to go for a CAT scan of the abdomen and pelvis, a repeat urine culture, and to continue on Macrodantin, but the patient elected to go back to the emergency room because of the pelvic pain. REVIEW OF SYSTEMS: RESPIRATORY SYSTEM: The patient has no respiratory complaints. GASTROINTESTINAL SYSTEM: The patient is noting watery diarrhea. GENITOURINARY: The patient has intense pain on urination and suprapubic pressure. 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 Seems to be forgetful and not understanding directions well. ORTHOPEDIC HISTORY: Noncontributory. SOCIAL HISTORY: The patient lives in a multifamily dwelling. She has no relatives in the area. PHYSICAL EXAMINATION: VITAL SIGNS: The patients is afebrile. HEENT: Head, ears, eyes, nose and throat are within normal limits. NECK: Supple. There are no bruits, nodes, or masses. CHEST: Clear bilaterally with no rales or rhonchi. ABDOMEN: Soft, nontender. There is no palpable bladder distention. There is no guarding or rebound. VAGINAL EXAM: Refused by the patient. EXTREMITIES: The patient moves all extremities. Appears to have normal movement of all extremities and good sensation. NEUROLOGIC: She does seem oriented to times, place and person, although she is 88 years old and appear to have some early problem with mentation. ASSESSMENT AND PLAN: My impression is resistant urinary tract infection. Suggest the following: I would suggest the patient get the abdomen and pelvis CAT scan to rule out vesicocolic fistula, the cause for the watery diarrhea. To rule out stone or other lesion which may cause inability to cure the infection. We suggest the patient urinalysis, urine culture, urine cytology, a repeat CBC and complete metabolic panel and followup with these results. Shady Marks MD [facility] # [id number]
[2018-08-15] MEDS: Meropenem 1 GM in Sodium Chloride 0.9% 100 ML IVPB SCH (22:00)
[2018-08-16] MEDS: HYDROmorphone 0.5 mg/0.5 ml ISec IVP PRN ×2 (01:16→07:40)
[2018-08-16] MEDS: (Novolin R) Insulin Human Regular 100 units/ml vial SC SCH ×4 (07:37→21:24)
[2018-08-16] MEDS: Albuterol-Ipratrop 3 mg / 0.5 (3 ml) UD INH SCH ×3 (08:22→20:00)
[2018-08-16] MEDS: Ergocalciferol 50,000 Intl Units Cap PO SCH (10:53)
[2018-08-16] MEDS: Meropenem 1 GM in Sodium Chloride 0.9% 100 ML IVPB SCH ×2 (10:54→22:03)
[2018-08-16] MEDS ORDERED: Oxycodone/Acetaminophen 5/325 mg Tab PO PRN (12:58)
--- NOTE | 2018-08-16 13:07 | CP.PCM.PN ---
Subjective - Date & Time of Evaluation Date of Evaluation: 08/16/18 Time of Evaluation: 13:04 - Subjective Subjective: Surgery: Dr. Swan Pt seen and examined. No acute overnight events. Pt was transferred out of the ICU and is now on telemetry. She states she feels ok and has some abdominal pain but it is well controlled. She is tolerating liquids and admits to being out of bed to chair. Denies nausea/vomiting, fevers/chills. Objective - Vital Signs/Intake and Output Vital Signs (last 24 hours): Temp Pulse Resp BP Pulse Ox 97.5 F L 100 H 20 149/81 96 08/16/18 08:00 08/16/18 11:57 08/16/18 08:00 08/16/18 08:00 08/16/18 11:57 Intake and Output: 08/16/18 08/16/18 06:59 18:59 Intake Total 300 Output Total 835 Balance -535 - Medications Medications: Current Medications Albuterol/Ipratropium (Duoneb 3 Mg/0.5 Mg (3 Ml) Ud) 3 ml INH RQ6 [facility] Last Admin: 08/16/18 08:22 Dose: 3 ml Aspirin (Aspirin Chewable) 81 mg PO DAILY [facility] Last Admin: 08/16/18 09:17 Dose: 81 mg Dextrose (Glutose 15) 0 gm PO ONCE PRN; Protocol PRN Reason: Hypoglycemia Protocol Ergocalciferol (Drisdol 50,000 Intl Units Cap) 1 cap PO Q7D [facility] Last Admin: 08/16/18 10:53 Dose: 1 cap Heparin Sodium (Porcine) (Heparin) 5,000 units SC Q12 [facility] Last Admin: 08/16/18 09:16 Dose: 5,000 units Dextrose (Dextrose 5% In Water 1000 Ml) 1,000 mls @ 0 mls/hr IV .Q0M PRN; Protocol PRN Reason: Hypoglycemia Protocol Meropenem 1 gm/ Sodium (Chloride) 100 mls @ 100 mls/hr IVPB Q12H [facility]; Protocol Last Admin: 08/16/18 10:54 Dose: 100 mls/hr Insulin Human Regular (Novolin R) 0 unit SC ACHS [facility]; Protocol Last Admin: 08/16/18 07:37 Dose: Not Given Oxycodone/Acetaminophen (Percocet 5/325 Mg Tab) 1 tab PO Q4H PRN PRN Reason: Pain, moderate (4-7) Stop: 08/19/18 12:59 Pantoprazole Sodium (Protonix Susp) 40 mg PO DAILY [facility] - Labs Labs: 08/15/18 06:08 08/15/18 06:08 PT 21.1 SECONDS (9.7-12.2) H 08/12/18 05:48 INR 1.9 08/12/18 05:48 APTT 28 SECONDS (21-34) 08/12/18 05:48 - Constitutional Appears: Well, No Acute Distress - Head Exam Head Exam: ATRAUMATIC, NORMOCEPHALIC - Eye Exam Eye Exam: Normal appearance - ENT Exam ENT Exam: Mucous Membranes Moist - Respiratory Exam Respiratory Exam: NORMAL BREATHING PATTERN - Cardiovascular Exam Cardiovascular Exam: Tachycardia - GI/Abdominal Exam GI & Abdominal Exam: Soft. absent: Distended, Guarding, Tenderness, Rebound Additional comments: midline incision with zachary, clean with some serous drainage noted from inferior border. Ostomy in place on left with no output. Luis drain in place with minimal serosang drainage. - Neurological Exam Neurological Exam: Alert, Awake - Skin Skin Exam: Dry, Warm Assessment and Plan - Assessment and Plan (Free Text) Assessment: 88F with perforated viscus s/p ex-lap with repair of bladder perforation, partial sigmoid resection and end colostomy; POD#5 Plan: - advance to FLD; cont to monitor ostomy output/bowel function - champion to remain in place for 2 weeks post-op; cont to monitor UOP - cont IV ABX; ID on board - out of bed to chair; encourage ambulation with PT - d/w Dr. Beny Rogers
--- NOTE | 2018-08-16 16:33 | CP.PCM.PN ---
Subjective - Date & Time of Evaluation Date of Evaluation: 08/16/18 Time of Evaluation: 07:45 - Subjective Subjective: clinically same Objective - Vital Signs/Intake and Output Vital Signs (last 24 hours): Temp Pulse Resp BP Pulse Ox 97.5 F L 100 H 20 149/81 96 08/16/18 08:00 08/16/18 11:57 08/16/18 08:00 08/16/18 08:00 08/16/18 11:57 Intake and Output: 08/16/18 08/16/18 06:59 18:59 Intake Total 300 350 Output Total 835 500 Balance -535 -150 - Medications Medications: Current Medications Albuterol/Ipratropium (Duoneb 3 Mg/0.5 Mg (3 Ml) Ud) 3 ml INH RQ6 [facility] Last Admin: 08/16/18 13:25 Dose: 3 ml Aspirin (Aspirin Chewable) 81 mg PO DAILY [facility] Last Admin: 08/16/18 09:17 Dose: 81 mg Dextrose (Glutose 15) 0 gm PO ONCE PRN; Protocol PRN Reason: Hypoglycemia Protocol Ergocalciferol (Drisdol 50,000 Intl Units Cap) 1 cap PO Q7D [facility] Last Admin: 08/16/18 10:53 Dose: 1 cap Heparin Sodium (Porcine) (Heparin) 5,000 units SC Q12 [facility] Last Admin: 08/16/18 09:16 Dose: 5,000 units Dextrose (Dextrose 5% In Water 1000 Ml) 1,000 mls @ 0 mls/hr IV .Q0M PRN; Protocol PRN Reason: Hypoglycemia Protocol Meropenem 1 gm/ Sodium (Chloride) 100 mls @ 100 mls/hr IVPB Q12H [facility]; Protocol Last Admin: 08/16/18 10:54 Dose: 100 mls/hr Insulin Human Regular (Novolin R) 0 unit SC ACHS [facility]; Protocol Last Admin: 08/16/18 12:30 Dose: Not Given Oxycodone/Acetaminophen (Percocet 5/325 Mg Tab) 1 tab PO Q4H PRN PRN Reason: Pain, moderate (4-7) Stop: 08/19/18 12:59 Pantoprazole Sodium (Protonix Susp) 40 mg PO DAILY [facility] - Labs Labs: 08/15/18 06:08 08/15/18 06:08 PT 21.1 SECONDS (9.7-12.2) H 08/12/18 05:48 INR 1.9 08/12/18 05:48 APTT 28 SECONDS (21-34) 08/12/18 05:48 - Constitutional Appears: Well - Head Exam Head Exam: ATRAUMATIC, NORMAL INSPECTION, NORMOCEPHALIC - Eye Exam Eye Exam: EOMI, Normal appearance, PERRL Pupil Exam: NORMAL ACCOMODATION, PERRL - ENT Exam ENT Exam: Mucous Membranes Moist, Normal Exam - Neck Exam Neck Exam: Full ROM, Normal Inspection. absent: Lymphadenopathy - Respiratory Exam Respiratory Exam: Decreased Breath Sounds - Cardiovascular Exam Cardiovascular Exam: REGULAR RHYTHM, +S1, +S2 - GI/Abdominal Exam GI & Abdominal Exam: Soft, Diminished Bowel Sounds - Rectal Exam Rectal Exam: Deferred
[2018-08-17 07:13] LABS: BASO % 0.2 % (0.0-2.0); EOS # 0.3 K/uL (0.0-0.7); EOS % 2.1 % (0.0-4.0); HEMOGLOBIN 12.3 g/dL (11.0-16.0); LYMPH # 2.3 K/uL (1.0-4.3); LYMPH % 17.3 % (20.0-40.0); MEAN CELL VOLUME 85.4 fL (81.0-99.0); MEAN CORPUSCULAR HEMOGLOBIN 28.8 pg (27.0-31.0); MEAN CORPUSCULAR HGB CONC 33.7 g/dL (33.0-37.0); MONO # 0.9 K/uL (0.0-0.8); MONO % 6.7 % (0.0-10.0); NEUT % 73.7 % (50.0-75.0); RBC 4.26 Mil/uL (3.80-5.20); WHITE BLOOD COUNT 13.5 K/uL (4.8-10.8)
[2018-08-17 07:18] LABS: BLOOD UREA NITROGEN 24 mg/dL (7-17); CALCIUM 7.9 mg/dl (8.6-10.4); GFR NON-AFRICAN AMERICAN 52
[2018-08-17] MEDS ORDERED: Fluticasone-Vilanterol 100/25mcg Diskus INH SCH (08:00)
[2018-08-17] MEDS: (Novolin R) Insulin Human Regular 100 units/ml vial SC SCH ×4 (08:07→21:04)
--- NOTE | 2018-08-17 08:40 | CP.PCM.PN ---
Subjective - Date & Time of Evaluation Date of Evaluation: 08/17/18 Time of Evaluation: 06:50 - Subjective Subjective: Surgery progress note for Dr. Swan Pt seen and examined this AM. pt states that she is tolerating pain, getting up to chair at bedside, tolerating diet without nausea or vomiting. Still no output in the ostomy. Objective - Vital Signs/Intake and Output Vital Signs (last 24 hours): Temp Pulse Resp BP Pulse Ox 97.3 F L 81 18 143/74 96 08/17/18 07:00 08/17/18 07:18 08/17/18 07:00 08/17/18 07:00 08/17/18 07:00 Intake and Output: 08/17/18 08/17/18 06:59 18:59 Intake Total 340 Output Total 725 Balance -385 - Medications Medications: Current Medications Albuterol/Ipratropium (Duoneb 3 Mg/0.5 Mg (3 Ml) Ud) 3 ml INH RQ6 [facility] Last Admin: 08/16/18 20:00 Dose: 3 ml Aspirin (Aspirin Chewable) 81 mg PO DAILY [facility] Last Admin: 08/16/18 09:17 Dose: 81 mg Aspirin (Aspirin Chewable) 81 mg PO DAILY [facility] Dextrose (Glutose 15) 0 gm PO ONCE PRN; Protocol PRN Reason: Hypoglycemia Protocol Ergocalciferol (Drisdol 50,000 Intl Units Cap) 1 cap PO Q7D [facility] Last Admin: 08/16/18 10:53 Dose: 1 cap Fluticasone/Vilanterol (Breo Ellipta 100-25 Mcg Inh) 1 puff INH RQ24 [facility] Heparin Sodium (Porcine) (Heparin) 5,000 units SC Q12 [facility] Last Admin: 08/16/18 21:58 Dose: Not Given Dextrose (Dextrose 5% In Water 1000 Ml) 1,000 mls @ 0 mls/hr IV .Q0M PRN; Protocol PRN Reason: Hypoglycemia Protocol Meropenem 1 gm/ Sodium (Chloride) 100 mls @ 100 mls/hr IVPB Q12H [facility]; Protocol Last Admin: 08/16/18 22:03 Dose: Not Given Insulin Human Regular (Novolin R) 0 unit SC ACHS [facility]; Protocol Last Admin: 08/17/18 08:07 Dose: Not Given Losartan Potassium (Cozaar) 100 mg PO DAILY [facility] Mupirocin (Bactroban Ointment) 0 gm TOP BID [facility] Last Admin: 08/16/18 22:01 Dose: 1 applic Oxycodone/Acetaminophen (Percocet 5/325 Mg Tab) 1 tab PO Q4H PRN PRN Reason: Pain, moderate (4-7) Stop: 08/19/18 12:59 Last Admin: 08/16/18 20:35 Dose: 1 tab Pantoprazole Sodium (Protonix Susp) 40 mg PO DAILY [facility] - Labs Labs: 08/17/18 06:59 08/17/18 06:59 PT 21.1 SECONDS (9.7-12.2) H 08/12/18 05:48 INR 1.9 08/12/18 05:48 APTT 28 SECONDS (21-34) 08/12/18 05:48 - Constitutional Appears: Well, Non-toxic, No Acute Distress - Head Exam Head Exam: ATRAUMATIC, NORMOCEPHALIC - Eye Exam Eye Exam: Normal appearance. absent: Conjunctival injection, Scleral icterus - ENT Exam ENT Exam: Mucous Membranes Moist, Normal Oropharynx - Respiratory Exam Respiratory Exam: NORMAL BREATHING PATTERN. absent: Accessory Muscle Use, Respiratory Distress - Cardiovascular Exam Cardiovascular Exam: RRR - GI/Abdominal Exam GI & Abdominal Exam: Soft, Tenderness (jun-incisional). absent: Distended Additional comments: ostomy pink, patent, and productive of gas, no stool - Extremities Exam Extremities Exam: absent: Calf Tenderness, Pedal Edema - Neurological Exam Neurological Exam: Alert, Awake, Oriented x3 - Psychiatric Exam Psychiatric exam: Normal Affect, Normal Mood - Skin Skin Exam: Dry, Normal Color, Warm Assessment and Plan - Assessment and Plan (Free Text) Assessment: 88F POD#6 s/p exploratory lap, repair of bladder perforation, sigmoid resection with end colostomy Plan: Continue current diet until ostomy is productive Continue diet supplementation Continue to trend CBC/BMP Continue to encourage PT and incentive spirometer use Medical management per primary Discussed with Dr. Beny Wall, PGY2
[2018-08-17] MEDS: Albuterol-Ipratrop 3 mg / 0.5 (3 ml) UD INH SCH ×3 (08:50→20:24)
[2018-08-17] MEDS: Pantoprazole 40 mg Susp UD PO SCH (10:39)
[2018-08-17] MEDS: Meropenem 1 GM in Sodium Chloride 0.9% 100 ML IVPB SCH ×2 (10:56→23:00)
--- NOTE | 2018-08-17 15:58 | CP.PCM.PN ---
Subjective - Date & Time of Evaluation Date of Evaluation: 08/17/18 Time of Evaluation: 08:30 - Subjective Subjective: clinically same Objective - Vital Signs/Intake and Output Vital Signs (last 24 hours): Temp Pulse Resp BP Pulse Ox 97.3 F L 101 H 18 135/64 96 08/17/18 07:00 08/17/18 10:38 08/17/18 07:00 08/17/18 10:38 08/17/18 07:00 Intake and Output: 08/17/18 08/17/18 06:59 18:59 Intake Total 340 400 Output Total 725 560 Balance -385 -160 - Medications Medications: Current Medications Albuterol/Ipratropium (Duoneb 3 Mg/0.5 Mg (3 Ml) Ud) 3 ml INH RQ6 [facility] Last Admin: 08/17/18 14:15 Dose: 3 ml Aspirin (Aspirin Chewable) 81 mg PO DAILY [facility] Last Admin: 08/17/18 10:39 Dose: 81 mg Dextrose (Glutose 15) 0 gm PO ONCE PRN; Protocol PRN Reason: Hypoglycemia Protocol Ergocalciferol (Drisdol 50,000 Intl Units Cap) 1 cap PO Q7D [facility] Last Admin: 08/16/18 10:53 Dose: 1 cap Fluticasone/Vilanterol (Breo Ellipta 100-25 Mcg Inh) 1 puff INH RQ24 [facility] Heparin Sodium (Porcine) (Heparin) 5,000 units SC Q12 [facility] Last Admin: 08/17/18 10:40 Dose: 5,000 units Dextrose (Dextrose 5% In Water 1000 Ml) 1,000 mls @ 0 mls/hr IV .Q0M PRN; Protocol PRN Reason: Hypoglycemia Protocol Meropenem 1 gm/ Sodium (Chloride) 100 mls @ 100 mls/hr IVPB Q12H [facility]; Protocol Last Admin: 08/17/18 10:56 Dose: 100 mls/hr Insulin Human Regular (Novolin R) 0 unit SC ACHS [facility]; Protocol Last Admin: 08/17/18 12:30 Dose: Not Given Losartan Potassium (Cozaar) 100 mg PO DAILY [facility] Last Admin: 08/17/18 10:40 Dose: 100 mg Mupirocin (Bactroban Ointment) 0 gm TOP BID [facility] Last Admin: 08/17/18 10:40 Dose: 1 applic Oxycodone/Acetaminophen (Percocet 5/325 Mg Tab) 1 tab PO Q4H PRN PRN Reason: Pain, moderate (4-7) Stop: 08/19/18 12:59 Last Admin: 08/16/18 20:35 Dose: 1 tab Pantoprazole Sodium (Protonix Susp) 40 mg PO DAILY [facility] Last Admin: 08/17/18 10:39 Dose: 40 mg - Labs Labs: 08/17/18 06:59 08/17/18 06:59 PT 21.1 SECONDS (9.7-12.2) H 08/12/18 05:48 INR 1.9 08/12/18 05:48 APTT 28 SECONDS (21-34) 08/12/18 05:48 - Constitutional Appears: Well - Head Exam Head Exam: ATRAUMATIC, NORMAL INSPECTION, NORMOCEPHALIC - Eye Exam Eye Exam: EOMI, Normal appearance, PERRL Pupil Exam: NORMAL ACCOMODATION, PERRL - ENT Exam ENT Exam: Mucous Membranes Moist, Normal Exam - Neck Exam Neck Exam: Full ROM, Normal Inspection. absent: Lymphadenopathy - Respiratory Exam Respiratory Exam: Decreased Breath Sounds - Cardiovascular Exam Cardiovascular Exam: REGULAR RHYTHM, +S1, +S2 - GI/Abdominal Exam GI & Abdominal Exam: Soft, Diminished Bowel Sounds - Rectal Exam Rectal Exam: Deferred
--- NOTE | 2018-08-17 19:09 | CP.PCM.PN ---
Subjective - Date & Time of Evaluation Date of Evaluation: 08/17/18 Time of Evaluation: 09:00 - Subjective Subjective: iv rx in progress doing better Objective - Vital Signs/Intake and Output Vital Signs (last 24 hours): Temp Pulse Resp BP Pulse Ox 97.5 F L 102 H 20 125/75 95 08/17/18 15:00 08/17/18 15:00 08/17/18 15:00 08/17/18 15:00 08/17/18 15:00 Intake and Output: 08/17/18 08/18/18 18:59 06:59 Intake Total 400 Output Total 560 Balance -160 - Medications Medications: Current Medications Albuterol/Ipratropium (Duoneb 3 Mg/0.5 Mg (3 Ml) Ud) 3 ml INH RQ6 [facility] Last Admin: 08/17/18 14:15 Dose: 3 ml Aspirin (Aspirin Chewable) 81 mg PO DAILY [facility] Last Admin: 08/17/18 10:39 Dose: 81 mg Dextrose (Glutose 15) 0 gm PO ONCE PRN; Protocol PRN Reason: Hypoglycemia Protocol Ergocalciferol (Drisdol 50,000 Intl Units Cap) 1 cap PO Q7D [facility] Last Admin: 08/16/18 10:53 Dose: 1 cap Fluticasone/Vilanterol (Breo Ellipta 100-25 Mcg Inh) 1 puff INH RQ24 [facility] Heparin Sodium (Porcine) (Heparin) 5,000 units SC Q12 [facility] Last Admin: 08/17/18 10:40 Dose: 5,000 units Dextrose (Dextrose 5% In Water 1000 Ml) 1,000 mls @ 0 mls/hr IV .Q0M PRN; Protocol PRN Reason: Hypoglycemia Protocol Meropenem 1 gm/ Sodium (Chloride) 100 mls @ 100 mls/hr IVPB Q12H [facility]; Protocol Last Admin: 08/17/18 10:56 Dose: 100 mls/hr Insulin Human Regular (Novolin R) 0 unit SC ACHS [facility]; Protocol Last Admin: 08/17/18 16:46 Dose: Not Given Losartan Potassium (Cozaar) 100 mg PO DAILY [facility] Last Admin: 08/17/18 10:40 Dose: 100 mg Mupirocin (Bactroban Ointment) 0 gm TOP BID [facility] Last Admin: 08/17/18 18:36 Dose: 1 applic Oxycodone/Acetaminophen (Percocet 5/325 Mg Tab) 1 tab PO Q4H PRN PRN Reason: Pain, moderate (4-7) Stop: 08/19/18 12:59 Last Admin: 08/16/18 20:35 Dose: 1 tab Pantoprazole Sodium (Protonix Susp) 40 mg PO DAILY [facility] Last Admin: 08/17/18 10:39 Dose: 40 mg - Labs Labs: 08/17/18 06:59 08/17/18 06:59 PT 21.1 SECONDS (9.7-12.2) H 08/12/18 05:48 INR 1.9 08/12/18 05:48 APTT 28 SECONDS (21-34) 08/12/18 05:48 - Constitutional Appears: Non-toxic, Chronically Ill - Head Exam Head Exam: NORMOCEPHALIC - Eye Exam Eye Exam: PERRL - ENT Exam ENT Exam: Mucous Membranes Dry - Neck Exam Neck Exam: absent: Lymphadenopathy - Respiratory Exam Respiratory Exam: Decreased Breath Sounds - Cardiovascular Exam Cardiovascular Exam: REGULAR RHYTHM - GI/Abdominal Exam GI & Abdominal Exam: Distended Assessment and Plan (1) Acute renal insufficiency Status: Acute (2) Dehydration Status: Acute (3) History of ESBL E. coli infection Status: Acute (4) UTI (urinary tract infection) Status: Acute (5) COPD exacerbation Status: Acute (6) [place]-vesical fistula Status: Acute
[2018-08-18] MEDS: Albuterol-Ipratrop 3 mg / 0.5 (3 ml) UD INH SCH ×4 (01:56→19:34)
[2018-08-18] MEDS: (Novolin R) Insulin Human Regular 100 units/ml vial SC SCH ×4 (08:44→21:48)
[2018-08-18] MEDS: Pantoprazole 40 mg Susp UD PO SCH (09:58)
[2018-08-18] MEDS: Meropenem 1 GM in Sodium Chloride 0.9% 100 ML IVPB SCH ×2 (09:59→22:20)
--- NOTE | 2018-08-18 15:30 | CP.PCM.PN ---
Subjective - Date & Time of Evaluation Date of Evaluation: 08/18/18 Time of Evaluation: 08:00 - Subjective Subjective: Surgery: Dr. Swan Pt seen and examined. No acute overnight events. Pt states she feels ok and denies any abdominal pain. Pt is tolerating liquids and having soft liquid stool in ostomy bag this morning. Denies nausea/vomiting, fevers/chills. Objective - Vital Signs/Intake and Output Vital Signs (last 24 hours): Temp Pulse Resp BP Pulse Ox 98.6 F 99 H 20 134/75 96 08/18/18 07:00 08/18/18 07:44 08/18/18 07:00 08/18/18 07:00 08/18/18 07:00 Intake and Output: 08/18/18 08/18/18 06:59 18:59 Intake Total 240 Output Total 958 1000 Balance -718 -1000 - Medications Medications: Current Medications Albuterol/Ipratropium (Duoneb 3 Mg/0.5 Mg (3 Ml) Ud) 3 ml INH RQ6 [facility] Last Admin: 08/18/18 13:56 Dose: 3 ml Aspirin (Aspirin Chewable) 81 mg PO DAILY [facility] Last Admin: 08/18/18 09:57 Dose: 81 mg Dextrose (Glutose 15) 0 gm PO ONCE PRN; Protocol PRN Reason: Hypoglycemia Protocol Ergocalciferol (Drisdol 50,000 Intl Units Cap) 1 cap PO Q7D [facility] Last Admin: 08/16/18 10:53 Dose: 1 cap Fluticasone/Vilanterol (Breo Ellipta 100-25 Mcg Inh) 1 puff INH RQ24 [facility] Last Admin: 08/18/18 09:58 Dose: 1 puff Heparin Sodium (Porcine) (Heparin) 5,000 units SC Q12 [facility] Last Admin: 08/18/18 09:58 Dose: 5,000 units Dextrose (Dextrose 5% In Water 1000 Ml) 1,000 mls @ 0 mls/hr IV .Q0M PRN; Protocol PRN Reason: Hypoglycemia Protocol Meropenem 1 gm/ Sodium (Chloride) 100 mls @ 100 mls/hr IVPB Q12H [facility]; Protocol Last Admin: 08/18/18 09:59 Dose: 100 mls/hr Insulin Human Regular (Novolin R) 0 unit SC ACHS [facility]; Protocol Last Admin: 08/18/18 12:11 Dose: Not Given Losartan Potassium (Cozaar) 100 mg PO DAILY [facility] Last Admin: 08/18/18 09:58 Dose: 100 mg Mupirocin (Bactroban Ointment) 0 gm TOP BID [facility] Last Admin: 08/18/18 09:57 Dose: 1 applic Oxycodone/Acetaminophen (Percocet 5/325 Mg Tab) 1 tab PO Q4H PRN PRN Reason: Pain, moderate (4-7) Stop: 08/19/18 12:59 Last Admin: 08/16/18 20:35 Dose: 1 tab Pantoprazole Sodium (Protonix Susp) 40 mg PO DAILY [facility] Last Admin: 08/18/18 09:58 Dose: 40 mg - Labs Labs: 08/17/18 06:59 08/17/18 06:59 PT 21.1 SECONDS (9.7-12.2) H 08/12/18 05:48 INR 1.9 08/12/18 05:48 APTT 28 SECONDS (21-34) 08/12/18 05:48 - Constitutional Appears: Well, No Acute Distress - Head Exam Head Exam: ATRAUMATIC, NORMOCEPHALIC - Eye Exam Eye Exam: Normal appearance - ENT Exam ENT Exam: Mucous Membranes Moist - Respiratory Exam Respiratory Exam: NORMAL BREATHING PATTERN - Cardiovascular Exam Cardiovascular Exam: RRR - GI/Abdominal Exam GI & Abdominal Exam: Soft. 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 Beny Rogers
--- NOTE | 2018-08-18 17:15 | CP.PCM.PN ---
Subjective - Date & Time of Evaluation Date of Evaluation: 08/18/18 Time of Evaluation: 09:15 - Subjective Subjective: clinically same Objective - Vital Signs/Intake and Output Vital Signs (last 24 hours): Temp Pulse Resp BP Pulse Ox 98.0 F 105 H 20 125/71 93 L 08/18/18 15:10 08/18/18 15:10 08/18/18 15:10 08/18/18 15:10 08/18/18 15:10 Intake and Output: 08/18/18 08/18/18 06:59 18:59 Intake Total 240 Output Total 958 1000 Balance -718 -1000 - Medications Medications: Current Medications Albuterol/Ipratropium (Duoneb 3 Mg/0.5 Mg (3 Ml) Ud) 3 ml INH RQ6 [facility] Last Admin: 08/18/18 13:56 Dose: 3 ml Aspirin (Aspirin Chewable) 81 mg PO DAILY [facility] Last Admin: 08/18/18 09:57 Dose: 81 mg Dextrose (Glutose 15) 0 gm PO ONCE PRN; Protocol PRN Reason: Hypoglycemia Protocol Ergocalciferol (Drisdol 50,000 Intl Units Cap) 1 cap PO Q7D [facility] Last Admin: 08/16/18 10:53 Dose: 1 cap Fluticasone/Vilanterol (Breo Ellipta 100-25 Mcg Inh) 1 puff INH RQ24 [facility] Last Admin: 08/18/18 09:58 Dose: 1 puff Heparin Sodium (Porcine) (Heparin) 5,000 units SC Q12 [facility] Last Admin: 08/18/18 09:58 Dose: 5,000 units Dextrose (Dextrose 5% In Water 1000 Ml) 1,000 mls @ 0 mls/hr IV .Q0M PRN; P rotocol PRN Reason: Hypoglycemia Protocol Meropenem 1 gm/ Sodium (Chloride) 100 mls @ 100 mls/hr IVPB Q12H [facility]; Protocol Last Admin: 08/18/18 09:59 Dose: 100 mls/hr Insulin Human Regular (Novolin R) 0 unit SC ACHS [facility]; Protocol Last Admin: 08/18/18 12:11 Dose: Not Given Losartan Potassium (Cozaar) 100 mg PO DAILY [facility] Last Admin: 08/18/18 09:58 Dose: 100 mg Mupirocin (Bactroban Ointment) 0 gm TOP BID [facility] Last Admin: 08/18/18 09:57 Dose: 1 applic Oxycodone/Acetaminophen (Percocet 5/325 Mg Tab) 1 tab PO Q4H PRN PRN Reason: Pain, moderate (4-7) Stop: 08/19/18 12:59 Last Admin: 08/16/18 20:35 Dose: 1 tab Pantoprazole Sodium (Protonix Susp) 40 mg PO DAILY [facility] Last Admin: 08/18/18 09:58 Dose: 40 mg - Labs Labs: 08/17/18 06:59 08/17/18 06:59 PT 21.1 SECONDS (9.7-12.2) H 08/12/18 05:48 INR 1.9 08/12/18 05:48 APTT 28 SECONDS (21-34) 08/12/18 05:48 - Constitutional Appears: Well - Head Exam Head Exam: ATRAUMATIC, NORMAL INSPECTION, NORMOCEPHALIC - Eye Exam Eye Exam: EOMI, Normal appearance, PERRL Pupil Exam: NORMAL ACCOMODATION, PERRL - ENT Exam ENT Exam: Mucous Membranes Moist, Normal Exam - Neck Exam Neck Exam: Full ROM, Normal Inspection. absent: Lymphadenopathy - Respiratory Exam Respiratory Exam: Decreased Breath Sounds - Cardiovascular Exam Cardiovascular Exam: REGULAR RHYTHM, +S1, +S2 - GI/Abdominal Exam GI & Abdominal Exam: Soft, Diminished Bowel Sounds - Rectal Exam Rectal Exam: Deferred
[2018-08-19] MEDS: Albuterol-Ipratrop 3 mg / 0.5 (3 ml) UD INH SCH ×4 (01:05→20:43)
[2018-08-19] MEDS: (Novolin R) Insulin Human Regular 100 units/ml vial SC SCH ×4 (07:38→21:54)
[2018-08-19] MEDS: Meropenem 1 GM in Sodium Chloride 0.9% 100 ML IVPB SCH ×2 (10:18→23:27)
[2018-08-19] MEDS: Pantoprazole 40 mg Susp UD PO SCH ×2 (10:19→11:00)
--- NOTE | 2018-08-19 10:43 | CP.PCM.PN ---
Subjective - Date & Time of Evaluation Date of Evaluation: 08/19/18 Time of Evaluation: 10:40 - Subjective Subjective: Surgery : Dr. Swan Pt seen and examined. No acute overnight events. Pt doing well this AM. Ernesto abdominal pain and states she's tolerating her diet. Pt having good ostomy function with soft stool in bag. No fevers recorded overnight. Denies nausea/vomiting, fevers/chills. Objective - Vital Signs/Intake and Output Vital Signs (last 24 hours): Temp Pulse Resp BP Pulse Ox 97.2 F L 98 H 18 137/70 94 L 08/19/18 07:59 08/19/18 07:59 08/19/18 07:59 08/19/18 07:59 08/19/18 07:59 Intake and Output: 08/19/18 08/19/18 06:59 18:59 Intake Total 600 Output Total 1360 Balance -760 - Medications Medications: Current Medications Albuterol/Ipratropium (Duoneb 3 Mg/0.5 Mg (3 Ml) Ud) 3 ml INH RQ6 [facility] Last Admin: 08/19/18 08:00 Dose: 3 ml Aspirin (Aspirin Chewable) 81 mg PO DAILY [facility] Last Admin: 08/19/18 10:19 Dose: 81 mg Dextrose (Glutose 15) 0 gm PO ONCE PRN; Protocol PRN Reason: Hypoglycemia Protocol Docusate Sodium (Colace) 100 mg PO DAILY [facility] Last Admin: 08/19/18 10:19 Dose: 100 mg Ergocalciferol (Drisdol 50,000 Intl Units Cap) 1 cap PO Q7D [facility] Last Admin: 08/16/18 10:53 Dose: 1 cap Fluticasone/Vilanterol (Breo Ellipta 100-25 Mcg Inh) 1 puff INH RQ24 [facility] Last Admin: 08/18/18 09:58 Dose: 1 puff Heparin Sodium (Porcine) (Heparin) 5,000 units SC Q12 [facility] Last Admin: 08/18/18 22:20 Dose: 5,000 units Dextrose (Dextrose 5% In Water 1000 Ml) 1,000 mls @ 0 mls/hr IV .Q0M PRN; Protocol PRN Reason: Hypoglycemia Protocol Meropenem 1 gm/ Sodium (Chloride) 100 mls @ 100 mls/hr IVPB Q12H [facility]; Protocol Last Admin: 08/19/18 10:18 Dose: 100 mls/hr Insulin Human Regular (Novolin R) 0 unit SC ACHS [facility]; Protocol Last Admin: 08/19/18 07:38 Dose: Not Given Losartan Potassium (Cozaar) 100 mg PO DAILY [facility] Last Admin: 08/19/18 10:19 Dose: 100 mg Mupirocin (Bactroban Ointment) 0 gm TOP BID [facility] Last Admin: 08/19/18 10:19 Dose: 1 applic Oxycodone/Acetaminophen (Percocet 5/325 Mg Tab) 1 tab PO Q4H PRN PRN Reason: Pain, moderate (4-7) Stop: 08/19/18 12:59 Last Admin: 08/16/18 20:35 Dose: 1 tab Pantoprazole Sodium (Protonix Susp) 40 mg PO DAILY [facility] Last Admin: 08/18/18 09:58 Dose: 40 mg - Labs Labs: 08/17/18 06:59 08/17/18 06:59 PT 21.1 SECONDS (9.7-12.2) H 08/12/18 05:48 INR 1.9 08/12/18 05:48 APTT 28 SECONDS (21-34) 08/12/18 05:48 - Constitutional Appears: Well, No Acute Distress - Head Exam Head Exam: ATRAUMATIC, NORMOCEPHALIC - Eye Exam Eye Exam: Normal appearance - ENT Exam ENT Exam: Mucous Membranes Moist - Respiratory Exam Respiratory Exam: NORMAL BREATHING PATTERN - Cardiovascular Exam Cardiovascular Exam: RRR - GI/Abdominal Exam GI & Abdominal Exam: Soft. absent: Distended, Guarding, Tenderness Additional comments: midline incision with zachary, clean/dry/intact. 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 Beny Rogers
[2018-08-19] MEDS ORDERED: Pantoprazole 40 mg EC Tab PO SCH (13:00)
[2018-08-19] MEDS: Pantoprazole 40 mg EC Tab PO SCH (13:24)
--- NOTE | 2018-08-19 19:38 | CP.PCM.PN ---
Subjective - Date & Time of Evaluation Date of Evaluation: 08/19/18 Time of Evaluation: 08:30 - Subjective Subjective: clinically same Objective - Vital Signs/Intake and Output Vital Signs (last 24 hours): Temp Pulse Resp BP Pulse Ox 97.9 F 109 H 20 109/69 95 08/19/18 15:00 08/19/18 15:00 08/19/18 15:00 08/19/18 15:00 08/19/18 15:00 Intake and Output: 08/19/18 08/20/18 18:59 06:59 Intake Total 100 Output Total 700 Balance -600 - Medications Medications: Current Medications Albuterol/Ipratropium (Duoneb 3 Mg/0.5 Mg (3 Ml) Ud) 3 ml INH RQ6 [facility] Last Admin: 08/19/18 13:45 Dose: 3 ml Aspirin (Aspirin Chewable) 81 mg PO DAILY [facility] Last Admin: 08/19/18 10:19 Dose: 81 mg Dextrose (Glutose 15) 0 gm PO ONCE PRN; Protocol PRN Reason: Hypoglycemia Protocol Docusate Sodium (Colace) 100 mg PO DAILY [facility] Last Admin: 08/19/18 10:19 Dose: 100 mg Ergocalciferol (Drisdol 50,000 Intl Units Cap) 1 cap PO Q7D [facility] Last Admin: 08/16/18 10:53 Dose: 1 cap Fluticasone/Vilanterol (Breo Ellipta 100-25 Mcg Inh) 1 puff INH RQ24 [facility] Last Admin: 08/18/18 09:58 Dose: 1 puff Heparin Sodium (Porcine) (Heparin) 5,000 units SC Q12 [facility] Last Admin: 08/19/18 10:18 Dose: Not Given Meropenem 1 gm/ Sodium (Chloride) 100 mls @ 100 mls/hr IVPB Q12H [facility]; Protocol Last Admin: 08/19/18 10:18 Dose: 100 mls/hr Insulin Human Regular (Novolin R) 0 unit SC ACHS [facility]; Protocol Last Admin: 08/19/18 17:09 Dose: Not Given Losartan Potassium (Cozaar) 100 mg PO DAILY [facility] Last Admin: 08/19/18 10:19 Dose: 100 mg Mupirocin (Bactroban Ointment) 0 gm TOP BID [facility] Last Admin: 08/19/18 10:19 Dose: 1 applic Pantoprazole Sodium (Protonix Ec Tab) 40 mg PO DAILY [facility] Last Admin: 08/19/18 13:24 Dose: 40 mg - Labs Labs: 08/17/18 06:59 08/17/18 06:59 PT 21.1 SECONDS (9.7-12.2) H 08/12/18 05:48 INR 1.9 08/12/18 05:48 APTT 28 SECONDS (21-34) 08/12/18 05:48 - Constitutional Appears: Well - Head Exam Head Exam: ATRAUMATIC, NORMAL INSPECTION, NORMOCEPHALIC - Eye Exam Eye Exam: EOMI, Normal appearance, PERRL Pupil Exam: NORMAL ACCOMODATION, PERRL - ENT Exam ENT Exam: Mucous Membranes Moist, Normal Exam - Neck Exam Neck Exam: Full ROM, Normal Inspection. absent: Lymphadenopathy - Respiratory Exam Respiratory Exam: Decreased Breath Sounds - Cardiovascular Exam Cardiovascular Exam: REGULAR RHYTHM, +S1, +S2 - GI/Abdominal Exam GI & Abdominal Exam: Soft, Diminished Bowel Sounds - Rectal Exam Rectal Exam: Deferred
[2018-08-20] MEDS: Albuterol-Ipratrop 3 mg / 0.5 (3 ml) UD INH SCH ×4 (02:15→19:37)
[2018-08-20] MEDS: (Novolin R) Insulin Human Regular 100 units/ml vial SC SCH ×4 (07:24→22:52)
[2018-08-20] MEDS: Meropenem 1 GM in Sodium Chloride 0.9% 100 ML IVPB SCH ×2 (10:16→22:44)
[2018-08-20] MEDS: Pantoprazole 40 mg EC Tab PO SCH (10:17)
--- NOTE | 2018-08-20 13:57 | CP.PCM.PN ---
Subjective - Date & Time of Evaluation Date of Evaluation: 08/20/18 Time of Evaluation: 08:15 - Subjective Subjective: clinically same Objective - Vital Signs/Intake and Output Vital Signs (last 24 hours): Temp Pulse Resp BP Pulse Ox 98.2 F 81 18 147/66 95 08/20/18 07:00 08/20/18 07:00 08/20/18 07:00 08/20/18 07:00 08/20/18 07:00 Intake and Output: 08/20/18 08/20/18 06:59 18:59 Intake Total 340 Output Total 1050 Balance -710 - Medications Medications: Current Medications Albuterol/Ipratropium (Duoneb 3 Mg/0.5 Mg (3 Ml) Ud) 3 ml INH RQ6 [facility] Last Admin: 08/20/18 13:51 Dose: 3 ml Aspirin (Aspirin Chewable) 81 mg PO DAILY [facility] Last Admin: 08/20/18 10:17 Dose: 81 mg Dextrose (Glutose 15) 0 gm PO ONCE PRN; Protocol PRN Reason: Hypoglycemia Protocol Docusate Sodium (Colace) 100 mg PO DAILY [facility] Last Admin: 08/20/18 10:17 Dose: 100 mg Ergocalciferol (Drisdol 50,000 Intl Units Cap) 1 cap PO Q7D [facility] Last Admin: 08/16/18 10:53 Dose: 1 cap Fluticasone/Vilanterol (Breo Ellipta 100-25 Mcg Inh) 1 puff INH RQ24 [facility] Last Admin: 08/18/18 09:58 Dose: 1 puff Heparin Sodium (Porcine) (Heparin) 5,000 units SC Q12 [facility] Last Admin: 08/20/18 10:17 Dose: 5,000 units Meropenem 1 gm/ Sodium (Chloride) 100 mls @ 100 mls/hr IVPB Q12H [facility]; Protocol Last Admin: 08/20/18 10:16 Dose: 100 mls/hr Insulin Human Regular (Novolin R) 0 unit SC ACHS [facility]; Protocol Last Admin: 08/20/18 11:26 Dose: Not Given Losartan Potassium (Cozaar) 100 mg PO DAILY [facility] Last Admin: 08/20/18 10:17 Dose: 100 mg Mupirocin (Bactroban Ointment) 0 gm TOP BID [facility] Last Admin: 08/20/18 10:17 Dose: 1 applic Pantoprazole Sodium (Protonix Ec Tab) 40 mg PO DAILY [facility] Last Admin: 08/20/18 10:17 Dose: 40 mg - Labs Labs: 08/17/18 06:59 08/17/18 06:59 PT 21.1 SECONDS (9.7-12.2) H 08/12/18 05:48 INR 1.9 08/12/18 05:48 APTT 28 SECONDS (21-34) 08/12/18 05:48 - Constitutional Appears: Well - Head Exam Head Exam: ATRAUMATIC, NORMAL INSPECTION, NORMOCEPHALIC - Eye Exam Eye Exam: EOMI, Normal appearance, PERRL Pupil Exam: NORMAL ACCOMODATION, PERRL - ENT Exam ENT Exam: Mucous Membranes Moist, Normal Exam - Neck Exam Neck Exam: Full ROM, Normal Inspection. absent: Lymphadenopathy - Respiratory Exam Respiratory Exam: Decreased Breath Sounds - Cardiovascular Exam Cardiovascular Exam: REGULAR RHYTHM, +S1, +S2 - GI/Abdominal Exam GI & Abdominal Exam: Soft, Diminished Bowel Sounds - Rectal Exam Rectal Exam: Deferred
--- NOTE | 2018-08-20 17:44 | CP.PCM.PN ---
Subjective - Date & Time of Evaluation Date of Evaluation: 08/20/18 Time of Evaluation: 09:00 - Subjective Subjective: improving ' afeb healing well cont iv rx for min 14 days Objective - Vital Signs/Intake and Output Vital Signs (last 24 hours): Temp Pulse Resp BP Pulse Ox 97.8 F 99 H 20 104/65 94 L 08/20/18 15:45 08/20/18 15:45 08/20/18 15:45 08/20/18 15:45 08/20/18 15:45 Intake and Output: 08/20/18 08/20/18 06:59 18:59 Intake Total 340 Output Total 1050 450 Balance -710 -450 - Medications Medications: Current Medications Albuterol/Ipratropium (Duoneb 3 Mg/0.5 Mg (3 Ml) Ud) 3 ml INH RQ6 [facility] Last Admin: 08/20/18 13:51 Dose: 3 ml Aspirin (Aspirin Chewable) 81 mg PO DAILY [facility] Last Admin: 08/20/18 10:17 Dose: 81 mg Dextrose (Glutose 15) 0 gm PO ONCE PRN; Protocol PRN Reason: Hypoglycemia Protocol Docusate Sodium (Colace) 100 mg PO DAILY [facility] Last Admin: 08/20/18 10:17 Dose: 100 mg Ergocalciferol (Drisdol 50,000 Intl Units Cap) 1 cap PO Q7D [facility] Last Admin: 08/16/18 10:53 Dose: 1 cap Fluticasone/Vilanterol (Breo Ellipta 100-25 Mcg Inh) 1 puff INH RQ24 [facility] Last Admin: 08/18/18 09:58 Dose: 1 puff Heparin Sodium (Porcine) (Heparin) 5,000 units SC Q12 [facility] Last Admin: 08/20/18 10:17 Dose: 5,000 units Meropenem 1 gm/ Sodium (Chloride) 100 mls @ 100 mls/hr IVPB Q12H [facility]; Protocol Last Admin: 08/20/18 10:16 Dose: 100 mls/hr Insulin Human Regular (Novolin R) 0 unit SC ACHS [facility]; Protocol Last Admin: 08/20/18 11:26 Dose: Not Given Losartan Potassium (Cozaar) 100 mg PO DAILY [facility] Last Admin: 08/20/18 10:17 Dose: 100 mg Mupirocin (Bactroban Ointment) 0 gm TOP BID [facility] Last Admin: 08/20/18 10:17 Dose: 1 applic Pantoprazole Sodium (Protonix Ec Tab) 40 mg PO DAILY [facility] Last Admin: 08/20/18 10:17 Dose: 40 mg - Labs Labs: 08/17/18 06:59 08/17/18 06:59 PT 21.1 SECONDS (9.7-12.2) H 08/12/18 05:48 INR 1.9 08/12/18 05:48 APTT 28 SECONDS (21-34) 08/12/18 05:48 - Constitutional Appears: Non-toxic, Chronically Ill - Head Exam Head Exam: NORMOCEPHALIC - Eye Exam Eye Exam: absent: Scleral icterus - ENT Exam ENT Exam: Mucous Membranes Dry - Neck Exam Neck Exam: absent: Lymphadenopathy - Respiratory Exam Respiratory Exam: Decreased Breath Sounds - Cardiovascular Exam Cardiovascular Exam: REGULAR RHYTHM - GI/Abdominal Exam GI & Abdominal Exam: Distended, Soft Assessment and Plan (1) Acute renal insufficiency Status: Acute (2) Dehydration Status: Acute (3) History of ESBL E. coli infection Status: Acute (4) UTI (urinary tract infection) Status: Acute (5) COPD exacerbation Status: Acute (6) [place]-vesical fistula Status: Acute
[2018-08-21 07:40] LABS: HEMOGLOBIN 10.4 g/dL (11.0-16.0); MEAN PLATELET VOLUME 9.2 fL (7.2-11.7); RBC 3.7 Mil/uL (3.80-5.20); RED CELL DISTRIBUTION WIDTH 15.2 % (11.5-14.5); WHITE BLOOD COUNT 16.6 K/uL (4.8-10.8)
[2018-08-21 07:41] LABS: MEAN CELL VOLUME 87.7 fL (81.0-99.0)
[2018-08-21] MEDS: (Novolin R) Insulin Human Regular 100 units/ml vial SC SCH ×4 (07:41→21:29)
[2018-08-21 08:12] LABS: BLOOD UREA NITROGEN 18 mg/dL (7-17); CALCIUM 8.5 mg/dl (8.6-10.4); GFR NON-AFRICAN AMERICAN 52
[2018-08-21] MEDS: Meropenem 1 GM in Sodium Chloride 0.9% 100 ML IVPB SCH ×3 (10:42→22:35)
[2018-08-21] MEDS: Pantoprazole 40 mg EC Tab PO SCH (10:43)
--- NOTE | 2018-08-21 15:11 | CP.PCM.PN ---
Subjective - Date & Time of Evaluation Date of Evaluation: 08/21/18 Time of Evaluation: 09:15 - Subjective Subjective: clinically same Objective - Vital Signs/Intake and Output Vital Signs (last 24 hours): Temp Pulse Resp BP Pulse Ox 98.4 F 107 H 20 133/71 97 08/21/18 08:13 08/21/18 11:59 08/21/18 08:13 08/21/18 08:13 08/21/18 11:59 Intake and Output: 08/21/18 08/21/18 06:59 18:59 Intake Total 580 Output Total 1000 400 Balance -420 -400 - Medications Medications: Current Medications Aspirin (Aspirin Chewable) 81 mg PO DAILY [facility] Last Admin: 08/21/18 10:42 Dose: 81 mg Dextrose (Glutose 15) 0 gm PO ONCE PRN; Protocol PRN Reason: Hypoglycemia Protocol Docusate Sodium (Colace) 100 mg PO DAILY [facility] Last Admin: 08/21/18 10:42 Dose: 100 mg Ergocalciferol (Drisdol 50,000 Intl Units Cap) 1 cap PO Q7D [facility] Last Admin: 08/16/18 10:53 Dose: 1 cap Fluticasone/Vilanterol (Breo Ellipta 100-25 Mcg Inh) 1 puff INH RQ24 [facility] Last Admin: 08/18/18 09:58 Dose: 1 puff Heparin Sodium (Porcine) (Heparin) 5,000 units SC Q12 [facility] Last Admin: 08/21/18 10:42 Dose: 5,000 units Meropenem 1 gm/ Sodium (Chloride) 100 mls @ 100 mls/hr IVPB Q12H [facility]; Protocol Last Admin: 08/21/18 10:44 Dose: Not Given Insulin Human Regular (Novolin R) 0 unit SC ACHS [facility]; Protocol Last Admin: 08/21/18 13:18 Dose: Not Given Losartan Potassium (Cozaar) 100 mg PO DAILY [facility] Last Admin: 08/21/18 10:42 Dose: 100 mg Mupirocin (Bactroban Ointment) 0 gm TOP BID [facility] Last Admin: 08/21/18 10:47 Dose: Not Given Pantoprazole Sodium (Protonix Ec Tab) 40 mg PO DAILY [facility] Last Admin: 08/21/18 10:43 Dose: 40 mg - Labs Labs: 08/21/18 07:03 08/21/18 07:03 PT 21.1 SECONDS (9.7-12.2) H 08/12/18 05:48 INR 1.9 08/12/18 05:48 APTT 28 SECONDS (21-34) 08/12/18 05:48 - Constitutional Appears: Well - Head Exam Head Exam: ATRAUMATIC, NORMAL INSPECTION, NORMOCEPHALIC - Eye Exam Eye Exam: EOMI, Normal appearance, PERRL Pupil Exam: NORMAL ACCOMODATION, PERRL - ENT Exam ENT Exam: Mucous Membranes Moist, Normal Exam - Neck Exam Neck Exam: Full ROM, Normal Inspection. absent: Lymphadenopathy - Respiratory Exam Respiratory Exam: Decreased Breath Sounds - Cardiovascular Exam Cardiovascular Exam: REGULAR RHYTHM, +S1, +S2 - GI/Abdominal Exam GI & Abdominal Exam: Soft, Diminished Bowel Sounds - Rectal Exam Rectal Exam: Deferred Assessment and Plan (1) Acute renal insufficiency Status: Acute (2) [place]-vesical fistula Status: Acute (3) Dehydration Status: Acute (4) History of ESBL E. coli infection Status: Acute (5) UTI (urinary tract infection) Status: Acute (6) COPD exacerbation Status: Acute (7) Cellulitis Status: Acute (8) Diarrhea Status: Acute (9) Dyspnea Status: Acute (10) HTN (hypertension) Status: Acute (11) New onset of congestive heart failure Status: Acute (12) Pain, dental Status: Acute (13) Respiratory distress Status: Acute (14) Visit for wound check Status: Acute - Assessment and Plan (Free Text) Plan: Continue aspirin he Elvis Continue meropenem Discharge planning upon clearance by Dr. Armenta as patient is on peroneal Follow-up with Dr. Fortune status post surgery Patient has a poor appetite although patient advised to eat Fingerstick ACH S Monitor the WBC Luis drain removed Patient is clear to discharge by Dr. Segundo today [place] Fish's to be removed in 3 weeks postoperatively
[2018-08-22] MEDS: (Novolin R) Insulin Human Regular 100 units/ml vial SC SCH ×4 (07:51→21:23)
[2018-08-22] MEDS: Pantoprazole 40 mg EC Tab PO SCH (09:49)
[2018-08-22] MEDS: Meropenem 1 GM in Sodium Chloride 0.9% 100 ML IVPB SCH ×2 (11:57→22:14)
--- NOTE | 2018-08-22 15:44 | CP.PCM.PN ---
Subjective - Date & Time of Evaluation Date of Evaluation: 08/22/18 Time of Evaluation: 08:30 - Subjective Subjective: clinically same Objective - Vital Signs/Intake and Output Vital Signs (last 24 hours): Temp Pulse Resp BP Pulse Ox 97.8 F 123 H 18 130/68 98 08/22/18 07:00 08/22/18 09:47 08/22/18 07:00 08/22/18 09:47 08/22/18 07:00 Intake and Output: 08/22/18 08/22/18 06:59 18:59 Intake Total 590 500 Output Total 900 375 Balance -310 125 - Medications Medications: Current Medications Aspirin (Aspirin Chewable) 81 mg PO DAILY [facility] Last Admin: 08/22/18 09:49 Dose: 81 mg Dextrose (Glutose 15) 0 gm PO ONCE PRN; Protocol PRN Reason: Hypoglycemia Protocol Docusate Sodium (Colace) 100 mg PO DAILY [facility] Last Admin: 08/22/18 09:49 Dose: 100 mg Ergocalciferol (Drisdol 50,000 Intl Units Cap) 1 cap PO Q7D [facility] Last Admin: 08/16/18 10:53 Dose: 1 cap Fluticasone/Vilanterol (Breo Ellipta 100-25 Mcg Inh) 1 puff INH RQ24 [facility] Last Admin: 08/18/18 09:58 Dose: 1 puff Heparin Sodium (Porcine) (Heparin) 5,000 units SC Q12 [facility] Last Admin: 08/22/18 09:49 Dose: 5,000 units Meropenem 1 gm/ Sodium (Chloride) 100 mls @ 100 mls/hr IVPB Q12H [facility]; Protocol Last Admin: 08/22/18 11:57 Dose: 100 mls/hr Insulin Human Regular (Novolin R) 0 unit SC ACHS [facility]; Protocol Last Admin: 08/22/18 11:39 Dose: Not Given Losartan Potassium (Cozaar) 100 mg PO DAILY [facility] Last Admin: 08/22/18 09:49 Dose: 100 mg Mupirocin (Bactroban Ointment) 0 gm TOP BID [facility] Last Admin: 08/22/18 09:49 Dose: 1 applic Pantoprazole Sodium (Protonix Ec Tab) 40 mg PO DAILY [facility] Last Admin: 08/22/18 09:49 Dose: 40 mg - Labs Labs: 08/21/18 07:03 08/21/18 07:03 PT 21.1 SECONDS (9.7-12.2) H 08/12/18 05:48 INR 1.9 08/12/18 05:48 APTT 28 SECONDS (21-34) 08/12/18 05:48 - Constitutional Appears: Well - Head Exam Head Exam: ATRAUMATIC, NORMAL INSPECTION, NORMOCEPHALIC - Eye Exam Eye Exam: EOMI, Normal appearance, PERRL Pupil Exam: NORMAL ACCOMODATION, PERRL - ENT Exam ENT Exam: Mucous Membranes Moist, Normal Exam - Neck Exam Neck Exam: Full ROM, Normal Inspection. absent: Lymphadenopathy - Respiratory Exam Respiratory Exam: Decreased Breath Sounds - Cardiovascular Exam Cardiovascular Exam: REGULAR RHYTHM, +S1, +S2 - GI/Abdominal Exam GI & Abdominal Exam: Soft, Diminished Bowel Sounds - Rectal Exam Rectal Exam: Deferred Assessment and Plan (1) Acute renal insufficiency Status: Acute (2) [place]-vesical fistula Status: Acute (3) Dehydration Status: Acute (4) History of ESBL E. coli infection Status: Acute (5) UTI (urinary tract infection) Status: Acute (6) COPD exacerbation Status: Acute (7) Cellulitis Status: Acute (8) Diarrhea Status: Acute (9) Dyspnea Status: Acute (10) HTN (hypertension) Status: Acute (11) New onset of congestive heart failure Status: Acute (12) Pain, dental Status: Acute (13) Respiratory distress Status: Acute (14) Visit for wound check Status: Acute - Assessment and Plan (Free Text) Plan: Discharge planning Leukocytosis is 16 WBC 16 hemoglobin hematocrit 10 and 34 creatinine is 1.0 patient is out of bed to the chair IV antibiotic for 3 more days meropenem Continue all other medications Cleared by the surgery Discussed with staff for discharge
[2018-08-23] MEDS: (Novolin R) Insulin Human Regular 100 units/ml vial SC SCH ×3 (07:44→17:41)
[2018-08-23] MEDS: Pantoprazole 40 mg EC Tab PO SCH (09:18)
[2018-08-23] MEDS: Meropenem 1 GM in Sodium Chloride 0.9% 100 ML IVPB SCH (10:46)
[2018-08-23] MEDS: Ergocalciferol 50,000 Intl Units Cap PO SCH (11:02)
--- NOTE | 2018-08-23 14:45 | CP.PCM.PN ---
Subjective - Date & Time of Evaluation Date of Evaluation: 08/23/18 Time of Evaluation: 08:45 - Subjective Subjective: clinically same Objective - Vital Signs/Intake and Output Vital Signs (last 24 hours): Temp Pulse Resp BP Pulse Ox 97.3 F L 83 18 139/59 L 96 08/23/18 08:23 08/23/18 08:23 08/23/18 08:23 08/23/18 08:23 08/23/18 08:23 Intake and Output: 08/23/18 08/23/18 06:59 18:59 Intake Total 240 Output Total 500 Balance -260 - Medications Medications: Current Medications Aspirin (Aspirin Chewable) 81 mg PO DAILY [facility] Last Admin: 08/23/18 09:18 Dose: 81 mg Dextrose (Glutose 15) 0 gm PO ONCE PRN; Protocol PRN Reason: Hypoglycemia Protocol Docusate Sodium (Colace) 100 mg PO DAILY [facility] Last Admin: 08/23/18 09:18 Dose: 100 mg Ergocalciferol (Drisdol 50,000 Intl Units Cap) 1 cap PO Q7D [facility] Last Admin: 08/23/18 11:02 Dose: 1 cap Fluticasone/Vilanterol (Breo Ellipta 100-25 Mcg Inh) 1 puff INH RQ24 [facility] Last Admin: 08/18/18 09:58 Dose: 1 puff Heparin Sodium (Porcine) (Heparin) 5,000 units SC Q12 [facility] Last Admin: 08/23/18 09:18 Dose: 5,000 units Meropenem 1 gm/ Sodium (Chloride) 100 mls @ 100 mls/hr IVPB Q12H [facility]; Protocol Last Admin: 08/23/18 10:46 Dose: 100 mls/hr Insulin Human Regular (Novolin R) 0 unit SC ACHS [facility]; Protocol Last Admin: 08/23/18 13:05 Dose: Not Given Losartan Potassium (Cozaar) 100 mg PO DAILY [facility] Last Admin: 08/23/18 09:18 Dose: 100 mg Mupirocin (Bactroban Ointment) 0 gm TOP BID [facility] Last Admin: 08/23/18 09:18 Dose: 1 applic Pantoprazole Sodium (Protonix Ec Tab) 40 mg PO DAILY [facility] Last Admin: 08/23/18 09:18 Dose: 40 mg - Labs Labs: 08/21/18 07:03 08/21/18 07:03 PT 21.1 SECONDS (9.7-12.2) H 08/12/18 05:48 INR 1.9 08/12/18 05:48 APTT 28 SECONDS (21-34) 08/12/18 05:48 - Constitutional Appears: Well - Head Exam Head Exam: ATRAUMATIC, NORMAL INSPECTION, NORMOCEPHALIC - Eye Exam Eye Exam: EOMI, Normal appearance, PERRL Pupil Exam: NORMAL ACCOMODATION, PERRL - ENT Exam ENT Exam: Mucous Membranes Moist, Normal Exam - Neck Exam Neck Exam: Full ROM, Normal Inspection. absent: Lymphadenopathy - Respiratory Exam Respiratory Exam: Decreased Breath Sounds - Cardiovascular Exam Cardiovascular Exam: REGULAR RHYTHM, +S1, +S2 - GI/Abdominal Exam GI & Abdominal Exam: Soft, Diminished Bowel Sounds - Rectal Exam Rectal Exam: Deferred Assessment and Plan (1) Acute renal insufficiency Status: Acute (2) [place]-vesical fistula Status: Acute (3) Dehydration Status: Acute (4) History of ESBL E. coli infection Status: Acute (5) UTI (urinary tract infection) Status: Acute (6) COPD exacerbation Status: Acute (7) Cellulitis Status: Acute (8) Diarrhea Status: Acute (9) Dyspnea Status: Acute (10) HTN (hypertension) Status: Acute (11) New onset of congestive heart failure Status: Acute (12) Pain, dental Status: Acute (13) Respiratory distress Status: Acute (14) Visit for wound check Status: Acute
--- NOTE | 2018-08-23 15:16 | CP.PCM.PN ---
Subjective - Date & Time of Evaluation Date of Evaluation: 08/23/18 Time of Evaluation: 15:16 - Subjective Subjective: PATIENT SEEN AND EXAMINED AT THE BEDSIDE Objective - Vital Signs/Intake and Output Vital Signs (last 24 hours): Temp Pulse Resp BP Pulse Ox 97.3 F L 83 18 139/59 L 96 08/23/18 08:23 08/23/18 08:23 08/23/18 08:23 08/23/18 08:23 08/23/18 08:23 Intake and Output: 08/23/18 08/23/18 06:59 18:59 Intake Total 240 Output Total 500 Balance -260 - Medications Medications: Current Medications Aspirin (Aspirin Chewable) 81 mg PO DAILY [facility] Last Admin: 08/23/18 09:18 Dose: 81 mg Dextrose (Glutose 15) 0 gm PO ONCE PRN; Protocol PRN Reason: Hypoglycemia Protocol Docusate Sodium (Colace) 100 mg PO DAILY [facility] Last Admin: 08/23/18 09:18 Dose: 100 mg Ergocalciferol (Drisdol 50,000 Intl Units Cap) 1 cap PO Q7D [facility] Last Admin: 08/23/18 11:02 Dose: 1 cap Fluticasone/Vilanterol (Breo Ellipta 100-25 Mcg Inh) 1 puff INH RQ24 [facility] Last Admin: 08/18/18 09:58 Dose: 1 puff Heparin Sodium (Porcine) (Heparin) 5,000 units SC Q12 [facility] Last Admin: 08/23/18 09:18 Dose: 5,000 units Meropenem 1 gm/ Sodium (Chloride) 100 mls @ 100 mls/hr IVPB Q12H [facility]; Protocol Last Admin: 08/23/18 10:46 Dose: 100 mls/hr Insulin Human Regular (Novolin R) 0 unit SC ACHS [facility]; Protocol Last Admin: 08/23/18 13:05 Dose: Not Given Losartan Potassium (Cozaar) 100 mg PO DAILY [facility] Last Admin: 08/23/18 09:18 Dose: 100 mg Mupirocin (Bactroban Ointment) 0 gm TOP BID [facility] Last Admin: 08/23/18 09:18 Dose: 1 applic Pantoprazole Sodium (Protonix Ec Tab) 40 mg PO DAILY [facility] Last Admin: 08/23/18 09:18 Dose: 40 mg - Labs Labs: 08/21/18 07:03 11/12/18 07:03 PT 21.1 SECONDS (9.7-12.2) H 08/12/18 05:48 INR 1.9 08/12/18 05:48 APTT 28 SECONDS (21-34) 08/12/18 05:48 Assessment and Plan - Assessment and Plan (Free Text) Assessment: PLACE UND[facility] SERVICE OF DR Beth REGAN [place] [facility] [place] FOR [place]MITTING ORDER FOLLOW UP WITH DR COLLINS ---CALL FOR APPOINTMENT [facility] NEW PRESCRIPTION GIVEN MERREM 1 G Q12H IVPB FOR 3 MORE DAYS ACTIVITY TOLERATED AND FACILITY PROTOCOL HART CATHETER CARE PER FACILITY PROTOCOL CAN BE REMOVED PER DR COLLINS IN 1 WEEK OSTOMY CARE PER FACILITY PROTOCOL CALL DR Beth REGAN FOR FURTHER ORDER
[2018-08-23 15:37] VITALS: BP 117/67; PULSE 90; RESP 20; TEMP 97.9; O2SAT 95
== END 2018-08-23 18:09 | DRG 653 ==
LOC: C.ER 15:29 → C.3T 18:32 → C.9I 08-11 19:12 → C.5S 08-16 01:00
PROVIDERS: ADMIT Internal Medicine Nephrology; ATTEND Internal Medicine Nephrology
PROC: 0DTN4ZZ Resection of Sigmoid Colon, Percutaneous Endoscopic Approach (ICD-10-PCS; principal; 2018-08-19)
PROC: 0TQB0ZZ Repair Bladder, Open Approach (ICD-10-PCS; 2018-08-19)
DX: N30.20 Other chronic cystitis without hematuria (principal); J96.91 Respiratory failure, unspecified with hypoxia; N17.9 Acute kidney failure, unspecified; E87.0 Hyperosmolality and hypernatremia; E87.4 Mixed disorder of acid-base balance; I13.0 Hypertensive heart and chronic kidney disease with heart failure and stage 1 through stage 4 chronic kidney disease, or unspecified chronic kidney disease; J44.1 Chronic obstructive pulmonary disease with (acute) exacerbation; N13.30 Unspecified hydronephrosis; E86.0 Dehydration; K66.8 Other specified disorders of peritoneum; N18.3 Chronic kidney disease, stage 3 (moderate); B96.20 Unspecified Escherichia coli [E. coli] as the cause of diseases classified elsewhere; D64.9 Anemia, unspecified; E55.9 Vitamin D deficiency, unspecified; E78.5 Hyperlipidemia, unspecified; N32.89 Other specified disorders of bladder

== ENCOUNTER 2018-10-09 13:53 | Inpatient (IN) | payer MEDICARE ==
[2018-10-09 13:53] VITALS: BMI 23.3
[2018-10-09] MEDS ORDERED: Sodium Chloride 0.9% 1,000 ML IV ONE (14:50)
--- NOTE | 2018-10-09 14:59 | C.PDOC ---
History Of Present Illness The patient is a 88 year old female, whose past medical history includes hypertension, hyperlipidemia, COPD and depression, presents to the ED for evaluation of her colostomy bag. Patient was admitted in August for abdominal pain. 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 Patient was recently evaluated in [facility] and underwent admission for urinary tract infection and psychiatric evaluation. [facility] Patient was discharged from the rehab center to her home two days ago. She states that she has no family and no home care was arranged. Patient presents to the ED today, stating that her colostomy bag has come off and has started leaking. Patient states she lives alone and does not have anyone to care for her at home. She states she has not had anything to eat/drink besides milk yesterday. Patient denies fever, chills. Time Seen by Provider: 10/09/18 14:34 Chief Complaint (Nursing): Medical Clearance History Per: Patient History/Exam Limitations: no limitations Onset/Duration Of Symptoms: Hrs Current Symptoms Are (Timing): Still Present Additional History Per: Patient Past Medical History Reviewed: Historical Data, Nursing Documentation, Vital Signs Vital Signs: Last Vital Signs Temp 97.3 F L 10/09/18 14:12 Pulse 100 H 10/09/18 14:07 Resp 16 10/09/18 14:07 BP 114/73 10/09/18 14:07 Pulse Ox 97 10/09/18 14:07 - Medical History PMH: COPD, HTN, Hyperlipidemia Surgical History: No Surg Hx - [facility] Procedures INTRODUCE OF OTH THERAP SUBST INTO RESP TRACT, VIA OPENING (09/18/18) REPAIR BLADDER, OPEN APPROACH (08/10/18) RESECTION OF SIGMOID COLON, PERCUTANEOUS ENDOSCOPIC APPROACH (08/10/18) RESPIRATORY VENTILATION, 24-96 CONSECUTIVE HOURS (10/20/17) Family History: States: Unknown Family Hx - Social History Hx Tobacco Use: Yes (former smoker 1/2ppd for 70 years) Hx Alcohol Use: Yes Hx Substance Use: No - Immunization History Hx Tetanus Toxoid Vaccination: No Hx Influenza Vaccination: No Hx Pneumococcal Vaccination: No Review Of Systems Gastrointestinal: Positive for: Other (leaking colostomy ) Physical Exam - Physical Exam Appears: Non-toxic, No Acute Distress Skin: Normal Color, Warm, Dry Head: Atraumatic, Normacephalic Eye(s): bilateral: Normal Inspection Oral Mucosa: Dry Neck: Normal ROM, Supple Chest: Symmetrical, No Deformity, No Tenderness Cardiovascular: Rhythm Regular, No Murmur Respiratory: Normal Breath Sounds, No Rales, No Rhonchi, No Wheezing Gastrointestinal/Abdominal: No Soft (firm ), Tenderness (mild ), No Guarding, No Rebound, Other (colostomy to left lower quadrant, recent incision appears well- healed ) Extremity: Normal ROM, Capillary Refill (less than 2 seconds ) Neurological/Psych: Oriented x3, Normal Speech, Normal Cognition, Normal Motor, Normal Sensation ED Course And Treatment O2 Sat by Pulse Oximetry: 97 (on RA) Pulse Ox Interpretation: Normal Progress Note: Bloodwork and urinalysis ordered. IV Fluids ordered. Patient refuses to allow any blood to be drawn or IV started. - Physician Consult Information Time Consulting Physician Contacted: 15:28 Outcome Of Conversation: Case discussed with Dr Ayala. Patient to be admitted for social service evaluation and possiblenursing home placement. Disposition - Disposition Disposition: HOSPITALIZED Disposition Time: 15:21 Condition: STABLE - POA Present On Arrival: None - Clinical Impression Clinical Impression: Colostomy malfunction, Decreased activities of daily living (ADL) - Scribe Statement The provider has reviewed the documentation as recorded by the Scribe (Heidi Carter) Provider Attestation: All medical record entries made by the Scribe were at my direction and personally dictated by me. I have reviewed the chart and agree that the record accurately reflects my personal performance of the history, physical exam, medical decision making, and the department course for this patient. I have also personally directed, reviewed, and agree with the discharge instructions and disposition.
[2018-10-10] MEDS ORDERED: Albuterol HFA 90 mcg/actuation (8 g) IH SCH ×2 (02:00)
[2018-10-10 03:39] LABS: URINE BILIRUBIN NEGATIVE (NEGATIVE); URINE BLOOD 3+ (NEGATIVE); URINE CLARITY Turbid (Clear); URINE COLOR Amber (YELLOW); URINE GLUCOSE (UA) NORMAL (Normal); URINE LEUKOCYTE ESTERASE 2+ Leu/uL (Negative); URINE PROTEIN 2+ mg/dL (NEGATIVE); URINE UROBILINOGEN NORMAL mg/dL (0.2-1.0)
[2018-10-10] MEDS ORDERED: Fluticasone-Vilanterol 100/25mcg Diskus INH SCH (08:00)
[2018-10-10] MEDS: Albuterol HFA 90 mcg/actuation (8 g) IH SCH ×2 (09:05→20:33)
[2018-10-10] MEDS: guaiFENesin 600 mg ER Tab PO SCH ×2 (09:33→17:42)
[2018-10-10] MEDS: Metoprolol Succinate 50 mg XL Tab PO SCH (09:34)
--- NOTE | 2018-10-10 15:57 | CP.PCM.HP ---
Present on Admission - Present on Admission Any Indicators Present on Admission: No Past Patient History - Infectious Disease Hx of Infectious Diseases: None - Past Medical History & Family History Past Medical History?: Yes - Past Social History Smoking Status: Former Smoker - CARDIAC Hx Hypertension: Yes - PULMONARY Hx Chronic Obstructive Pulmonary Disease (COPD): Yes - NEUROLOGICAL Hx Neurological Disorder: No - HEENT Hx HEENT Problems: No - RENAL Hx Chronic Kidney Disease: No - ENDOCRINE/METABOLIC Hx Endocrine Disorders: No - HEMATOLOGICAL/ONCOLOGICAL Hx Blood Disorders: No - INTEGUMENTARY Hx Dermatological Problems: No - MUSCULOSKELETAL/RHEUMATOLOGICAL Hx Falls: No - GASTROINTESTINAL Hx Colitis: Yes Hx Colostomy: Yes - GENITOURINARY/GYNECOLOGICAL Hx Urinary Tract Infection: Yes - PSYCHIATRIC Hx Substance Use: No - SURGICAL HISTORY Hx Surgeries: No - ANESTHESIA Hx Anesthesia: No Meds Allergies/Adverse Reactions: Allergies Allergy/AdvReac Type Severity Reaction Status Date / Time cat dander Allergy RASH Verified 10/09/18 14:09 Physical Exam - Constitutional Appears: Well - Head Exam Head Exam: ATRAUMATIC, NORMAL INSPECTION, NORMOCEPHALIC - Eye Exam Eye Exam: EOMI, Normal appearance, PERRL Pupil Exam: NORMAL ACCOMODATION, PERRL - Neck Exam Neck exam: Positive for: Normal Inspection - Respiratory Exam Respiratory Exam: Decreased Breath Sounds - Cardiovascular Exam Cardiovascular Exam: REGULAR RHYTHM, +S1, +S2 - GI/Abdominal Exam GI & Abdominal Exam: Diminished Bowel Sounds, Soft - Rectal Exam Rectal Exam: Deferred Results - Vital Signs Recent Vital Signs: Last Vital Signs Temp 98.4 F 10/10/18 13:00 Pulse 98 H 10/10/18 13:00 Resp 20 10/10/18 13:00 BP 125/64 10/10/18 13:00 Pulse Ox 95 10/10/18 13:00 - Labs Labs: Laboratory Results - last 24 hr 10/10/18 03:23 Urine Color Stefanie Urine Clarity Turbid Urine pH 7.0 Ur Specific [place] 1.014 Urine Protein 2+ H Urine Glucose (UA) Normal Urine Ketones Negative Urine Blood 3+ H Urine Nitrate Negative Urine Bilirubin Negative Urine Urobilinogen Normal Ur Leukocyte Esterase 2+ H Urine WBC (Auto) 1087 H Urine RBC (Auto) 7002 H Assessment & Plan - Assessment and Plan (Free Text) Plan: refusing blood test from er will not let them put iv or do allow to do cbc cmp etcs pt understands consequences
--- NOTE | 2018-10-10 19:16 | CP.PCM.CON ---
History of Present Illness - History of Present Illness History of Present Illness: SURGERY CONSULT NOTE FOR DR. COLLINS Reason for consult: colostomy status 88F presents to hospital after leaving rehab center two days prior. She states she returned because she was not able to take care of the ostomy by herself, She has no help at home. She denies any abdominal pain, denies nausea or vomiting, and denies fevers or chills. She tolerates diet, and has been on diet here which she is also tolerating. She is having output out her ostomy. Non-obstructed. PMH: COPD, HTN, HLD, [place]-vesicular fistula PSH: Hysterectomy, sigmoidectomy with end colostomy 08/2018 Social: denies tobacco, alcohol or illicit drug use Allergies per chart Past Patient History - Infectious Disease Hx of Infectious Diseases: None - Past Medical History & Family History Past Medical History?: Yes - Past Social History Smoking Status: Former Smoker - CARDIAC Hx Hypertension: Yes - PULMONARY Hx Chronic Obstructive Pulmonary Disease (COPD): Yes - NEUROLOGICAL Hx Neurological Disorder: No - HEENT Hx HEENT Problems: No - RENAL Hx Chronic Kidney Disease: No - ENDOCRINE/METABOLIC Hx Endocrine Disorders: No - HEMATOLOGICAL/ONCOLOGICAL Hx Blood Disorders: No - INTEGUMENTARY Hx Dermatological Problems: No - MUSCULOSKELETAL/RHEUMATOLOGICAL Hx Falls: No - GASTROINTESTINAL Hx Colitis: Yes Hx Colostomy: Yes - GENITOURINARY/GYNECOLOGICAL Hx Urinary Tract Infection: Yes - PSYCHIATRIC Hx Substance Use: No - SURGICAL HISTORY Hx Surgeries: No - ANESTHESIA Hx Anesthesia: No Meds Allergies/Adverse Reactions: Allergies Allergy/AdvReac Type Severity Reaction Status Date / Time cat dander Allergy RASH Verified 10/09/18 14:09 - Medications Medications: Current Medications Albuterol (Ventolin Hfa 90 Mcg/Actuation (8 G)) 90 puff IH RQ6 [facility] Last Admin: 10/10/18 09:05 Dose: Not Given Amlodipine Besylate (Norvasc) 10 mg PO DAILY [facility] Last Admin: 10/10/18 09:34 Dose: 10 mg Aspirin (Aspirin Chewable) 81 mg PO DAILY [facility] Last Admin: 10/10/18 09:34 Dose: 81 mg Fluticasone/Vilanterol (Breo Ellipta 100-25 Mcg Inh) 1 puff INH RQ24 [facility] Guaifenesin (Mucinex La) 600 mg PO BID [facility] Last Admin: 10/10/18 17:42 Dose: 600 mg Meropenem 500 mg/ Sodium (Chloride) 100 mls @ 100 mls/hr IVPB Q12H [facility]; Protocol Losartan Potassium (Cozaar) 100 mg PO DAILY [facility] Last Admin: 10/10/18 09:34 Dose: 100 mg Metoprolol Succinate (Toprol Xl) 50 mg PO DAILY [facility] Last Admin: 10/10/18 09:34 Dose: 50 mg Mupirocin (Bactroban Ointment) 0 gm TOP BID [facility] Last Admin: 10/10/18 17:41 Dose: 1 applic Nitrofurantoin Macrocrystals (Macrobid) 100 mg PO Q12H [facility]; Protocol Prednisone (Prednisone Tab) 5 mg PO DAILY [facility] Last Admin: 10/10/18 09:34 Dose: 5 mg Rosuvastatin Calcium (Crestor) 10 mg PO HS [facility] Last Admin: 10/09/18 21:27 Dose: 10 mg Physical Exam - Constitutional Appears: Non-toxic, No Acute Distress - ENT Exam ENT Exam: Mucous Membranes Moist - Respiratory Exam Respiratory Exam: Clear to Auscultation Bilateral, NORMAL BREATHING PATTERN - Cardiovascular Exam Cardiovascular Exam: REGULAR RHYTHM, +S1, +S2 - GI/Abdominal Exam GI & Abdominal Exam: Normal Bowel Sounds, Soft. absent: Distended, Firm, Guarding, Rebound, Rigid, Tenderness Additional comments: ostomy pink and patent - Extremities Exam Extremities exam: Negative for: pedal edema, tenderness - Neurological Exam Neurological exam: Alert, Oriented x3 - Skin Skin Exam: Dry, Intact, Normal Color, Warm Results - Vital Signs Recent Vital Signs: Last Vital Signs Temp 98.0 F 10/10/18 16:00 Pulse 91 H 10/10/18 16:00 Resp 20 10/10/18 16:00 BP 102/62 10/10/18 16:00 Pulse Ox 94 L 10/10/18 16:00 - Labs Labs: Laboratory Results - last 24 hr 10/10/18 03:23 Urine Color Stefanie Urine Clarity Turbid Urine pH 7.0 Ur Specific [place] 1.014 Urine Protein 2+ H Urine Glucose (UA) Normal Urine Ketones Negative Urine Blood 3+ H Urine Nitrate Negative Urine Bilirubin Negative Urine Urobilinogen Normal Ur Leukocyte Esterase 2+ H Urine WBC (Auto) 1087 H Urine RBC (Auto) 7002 H Assessment & Plan - Assessment and Plan (Free Text) Assessment: 88F presents with colostomy status. Patient had a sigmoidectomy with end colostomy with bladder repair Plan: - continue diet - patient refusing labs - continue medical management - Wound/Ostomy nurse consult for education Further recs discuss with Dr. Beny Nowak, PGY3
[2018-10-10] MEDS: Meropenem 500 MG in Sodium Chloride 0.9% 100 ML IVPB SCH (21:42)
[2018-10-11] MEDS: Albuterol HFA 90 mcg/actuation (8 g) IH SCH ×4 (01:33→20:01)
[2018-10-11] MEDS: Meropenem 500 MG in Sodium Chloride 0.9% 100 ML IVPB SCH ×2 (06:31→22:41)
--- NOTE | 2018-10-11 11:16 | CP.PCM.PN ---
Subjective - Date & Time of Evaluation Date of Evaluation: 10/11/18 Time of Evaluation: 10:48 - Subjective Subjective: Surgery: Dr. Swan Pt seen and examined. No acute overnight events. States she feels well and has no complaints at this time. Pt admits to tolerating diet and is having output in ostomy. Denies fevers/chills. Objective - Vital Signs/Intake and Output Vital Signs (last 24 hours): Temp Pulse Resp BP Pulse Ox 98.1 F 110 H 20 114/75 98 10/11/18 07:57 10/11/18 07:57 10/11/18 07:57 10/11/18 07:57 10/11/18 07:57 Intake and Output: 10/11/18 10/11/18 06:59 18:59 Output Total 251 Balance -251 - Medications Medications: Current Medications Albuterol (Ventolin Hfa 90 Mcg/Actuation (8 G)) 90 puff IH RQ6 [facility] Last Admin: 10/11/18 01:33 Dose: Not Given Amlodipine Besylate (Norvasc) 10 mg PO DAILY [facility] Last Admin: 10/10/18 09:34 Dose: 10 mg Aspirin (Aspirin Chewable) 81 mg PO DAILY [facility] Last Admin: 10/10/18 09:34 Dose: 81 mg Fluticasone/Vilanterol (Breo Ellipta 100-25 Mcg Inh) 1 puff INH RQ24 [facility] Guaifenesin (Mucinex La) 600 mg PO BID [facility] Last Admin: 10/10/18 17:42 Dose: 600 mg Meropenem 500 mg/ Sodium (Chloride) 100 mls @ 100 mls/hr IVPB Q12H [facility]; Protocol Last Admin: 10/11/18 06:31 Dose: Not Given Losartan Potassium (Cozaar) 100 mg PO DAILY [facility] Last Admin: 10/10/18 09:34 Dose: 100 mg Metoprolol Succinate (Toprol Xl) 50 mg PO DAILY [facility] Last Admin: 10/10/18 09:34 Dose: 50 mg Mupirocin (Bactroban Ointment) 0 gm TOP BID [facility] Last Admin: 10/10/18 17:41 Dose: 1 applic Nitrofurantoin Macrocrystals (Macrobid) 100 mg PO Q12H [facility]; Protocol Last Admin: 10/11/18 06:30 Dose: 100 mg Prednisone (Prednisone Tab) 5 mg PO DAILY [facility] Last Admin: 10/10/18 09:34 Dose: 5 mg Rosuvastatin Calcium (Crestor) 10 mg PO HS [facility] Last Admin: 10/10/18 21:40 Dose: 10 mg - Constitutional Appears: Well, No Acute Distress - Head Exam Head Exam: ATRAUMATIC, NORMOCEPHALIC - Eye Exam Eye Exam: Normal appearance - ENT Exam ENT Exam: Mucous Membranes Moist - Respiratory Exam Respiratory Exam: NORMAL BREATHING PATTERN - Cardiovascular Exam Cardiovascular Exam: RRR - GI/Abdominal Exam GI & Abdominal Exam: Soft. absent: Distended, Guarding, Tenderness Additional comments: Ostomy LLQ functioning well - Neurological Exam Neurological Exam: Alert, Awake, Oriented x3 - Skin Skin Exam: Dry, Warm Assessment and Plan - Assessment and Plan (Free Text) Assessment: 88F with sigmoid ostomy s/p sigmoid resection Plan: - ostomy functioning well - wound care nurse consult - no plan for surgical intervention - d/w Dr. Beny Rogers
--- NOTE | 2018-10-11 15:25 | CP.PCM.CON ---
History of Present Illness - History of Present Illness History of Present Illness: still refusing labs and antibiotics still refusing labs and antibiotics will discuss with Dr Beth Carter !! The patient is a 88 year old female, whose past medical history includes hypertension, hyperlipidemia, COPD and depression, presents to the ED for evaluation of her colostomy bag. Patient was admitted in August for abdominal pain. 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 Patient was recently evaluated in [facility] and underwent admission for urinary tract infection and psychiatric evaluation. [facility]. Patient was discharged from the rehab center to her home two days ago. She states that she has no family and no home care was arranged. Patient presents to the ED today, stating that her colostomy bag has come off and has started leaking. Patient states she lives alone and does not have anyone to care for her at home. She states she has not had anything to eat/drink besides milk yesterday. Patient denies fever, chills. - Medical History PMH: COPD, HTN, Hyperlipidemia Surgical History: No Surg Hx - [facility] Procedures INTRODUCE OF OTH THERAP SUBST INTO RESP TRACT, VIA OPENING (09/18/18) REPAIR BLADDER, OPEN APPROACH (08/10/18) RESECTION OF SIGMOID COLON, PERCUTANEOUS ENDOSCOPIC APPROACH (08/10/18) RESPIRATORY VENTILATION, 24-96 CONSECUTIVE HOURS (10/20/17) Family History: States: Unknown Family Hx Past Patient History - Infectious Disease Hx of Infectious Diseases: None - Past Medical History & Family History Past Medical History?: Yes - Past Social History Smoking Status: Former Smoker - CARDIAC Hx Hypertension: Yes - PULMONARY Hx Chronic Obstructive Pulmonary Disease (COPD): Yes - NEUROLOGICAL Hx Neurological Disorder: No - HEENT Hx HEENT Problems: No - RENAL Hx Chronic Kidney Disease: No - ENDOCRINE/METABOLIC Hx Endocrine Disorders: No - HEMATOLOGICAL/ONCOLOGICAL Hx Blood Disorders: No - INTEGUMENTARY Hx Dermatological Problems: No - MUSCULOSKELETAL/RHEUMATOLOGICAL Hx Falls: No - GASTROINTESTINAL Hx Colitis: Yes Hx Colostomy: Yes - GENITOURINARY/GYNECOLOGICAL Hx Urinary Tract Infection: Yes - PSYCHIATRIC Hx Substance Use: No - SURGICAL HISTORY Hx Surgeries: No - ANESTHESIA Hx Anesthesia: No Meds Allergies/Adverse Reactions: Allergies Allergy/AdvReac Type Severity Reaction Status Date / Time cat dander Allergy RASH Verified 10/09/18 14:09 - Medications Medications: Current Medications Albuterol (Ventolin Hfa 90 Mcg/Actuation (8 G)) 90 puff IH RQ6 [facility] Last Admin: 10/10/18 09:05 Dose: Not Given Amlodipine Besylate (Norvasc) 10 mg PO DAILY [facility] Last Admin: 10/10/18 09:34 Dose: 10 mg Aspirin (Aspirin Chewable) 81 mg PO DAILY [facility] Last Admin: 10/10/18 09:34 Dose: 81 mg Fluticasone/Vilanterol (Breo Ellipta 100-25 Mcg Inh) 1 puff INH RQ24 [facility] Guaifenesin (Mucinex La) 600 mg PO BID [facility] Last Admin: 10/10/18 09:33 Dose: 600 mg Losartan Potassium (Cozaar) 100 mg PO DAILY [facility] Last Admin: 10/10/18 09:34 Dose: 100 mg Metoprolol Succinate (Toprol Xl) 50 mg PO DAILY [facility] Last Admin: 10/10/18 09:34 Dose: 50 mg Mupirocin (Bactroban Ointment) 0 gm TOP BID [facility] Last Admin: 10/10/18 09:46 Dose: 1 applic Prednisone (Prednisone Tab) 5 mg PO DAILY [facility] Last Admin: 10/10/18 09:34 Dose: 5 mg Rosuvastatin Calcium (Crestor) 10 mg PO HS [facility] Last Admin: 10/09/18 21:27 Dose: 10 mg Results - Vital Signs Recent Vital Signs: Last Vital Signs Temp 98.0 F 10/10/18 16:00 Pulse 91 H 10/10/18 16:00 Resp 20 10/10/18 16:00 BP 102/62 10/10/18 16:00 Pulse Ox 94 L 10/10/18 16:00 - Labs Labs: Laboratory Results - last 24 hr 10/10/18 03:23 Urine Color Stefanie Urine Clarity Turbid Urine pH 7.0 Ur Specific [place] 1.014 Urine Protein 2+ H Urine Glucose (UA) Normal Urine Ketones Negative Urine Blood 3+ H Urine Nitrate Negative Urine Bilirubin Negative Urine Urobilinogen Normal Ur Leukocyte Esterase 2+ H Urine WBC (Auto) 1087 H Urine RBC (Auto) 7002 H
--- NOTE | 2018-10-11 15:28 | CP.PCM.CON ---
History of Present Illness - History of Present Illness History of Present Illness: 88 year old female, presents to the ED for evaluation of her colostomy bag. Referred for ID eval for UTI management Patient was admitted in August for abdominal pain and work up revealed a colo-vesicular fistula and surgery resulted in a colostomy. - Medical History PMH: COPD, HTN, Hyperlipidemia Surgical History: No Surg Hx - [facility] Procedures INTRODUCE OF OTH THERAP SUBST INTO RESP TRACT, VIA OPENING (09/18/18) REPAIR BLADDER, OPEN APPROACH (08/10/18) RESECTION OF SIGMOID COLON, PERCUTANEOUS ENDOSCOPIC APPROACH (08/10/18) RESPIRATORY VENTILATION, 24-96 CONSECUTIVE HOURS (10/20/17) Review of Systems - Review of Systems Systems not reviewed;Unavailable: Altered Mental Status All systems: reviewed and no additional remarkable complaints except - Constitutional Constitutional: As Per HPI - EENT Eyes: absent: As Per HPI, Blind Spots, Blurred Vision, Change in Vision, Decreased Night Vision, Diplopia, Discharge, Dry Eye, Exophthalmos, Floaters, Irritation, Itchy Eyes, Loss of Peripheral Vision, Pain, Photophobia, Requires Corrective Lenses, Sees Flashes, Spots in Vision, Tunnel Vision, Other Visual Disturbances, Loss of Vision, Other Ears: absent: As Per HPI, Decreased Hearing, Ear Discharge, Ear Pain, Tinnitus, Abnormal Hearing, Disequilibrium, Dizziness, Other Nose/Mouth/Throat: absent: As Per HPI, Epistaxis, Nasal Congestion, Nasal Discharge, Nasal Obstruction, Nasal Trauma, Nose Pain, Post Nasal Drip, Sinus Pain, Sinus Pressure, Bleeding Gums, Change in Voice, Dental Pain, Dry Mouth, D ysphagia, Halitosis, Hoarsness, Lip Swelling, Mouth Lesions, Mouth Pain, Odynophagia, Sore Throat, Throat Swelling, Tongue Swelling, Facial Pain, Neck Pain, Neck Mass, Other - Breasts Breasts: absent: As Per HPI, Change in Shape, Mass, Pain, Nipple Discharge, Nipple Inversion, Skin Changes, Swelling, Other - Cardiovascular Cardiovascular: absent: As Per HPI, Acrocyanosis, Chest Pain, Chest Pain at Rest, Chest Pain with Activity, Claudication, Diaphoresis, Dyspnea, Dyspnea on Exertion, Edema, Irregular Heart Rhythm, Pain Radiating to Arm/Neck/Jaw, Leg Edema, Leg Ulcers, Lightheadedness, Orthopnea, Palpitations, Paroxysmal Nocturnal Dyspnea, Pedal Edema, Radiating Pain, Rapid Heart Rate, Slow Heart Rate, Syncope, Other - Respiratory Respiratory: absent: As Per HPI, Cough, Dyspnea, Hemoptysis, Dyspnea on Exertion, Wheezing, Snoring, Stridor, Pain on Inspiration, Chest Congestion, Excessive Mucous Production, Change in Mucous Color, Pain with Coughing, Other - Gastrointestinal Gastrointestinal: As Per HPI - Genitourinary Genitourinary: As Per HPI - Reproductive: Female Reproductive:Female: absent: As Per HPI, Amenorrhea, Amenorrhea/ Control, Currently Menstual, Cycle <21 Days, Cycle >35 Days, Cycle Variable, Menses 1-7 Days, Menses >/= 8 Days, Menses Variable, Cycle > 4 Weeks Between, No Menses for 6 Months, Heavy Menses, Light Menses, Normal Menses, Spotting Between Cycles, S/P Hysterectomy, Menopausal, Post Menopausal, Premenarche, Abnormal Vaginal Bleeding, Dysmenorrhea, Dyspareunia, Genital Lesions, Genital Pruritis, Pelvic Pain, Prolapse Symptoms, Sexual Dysfunction, Vaginal Discharge, Vaginal Dryness, Vaginal Odor, Vaginal Pruritis, Other - Menstruation Menstruation: absent: As Per HPI, Amenorrhea, Amenorrhea/ Control, Currently Menstual, Cycle <21 Days, Cycle >35 Days, Cycle Variable, Menses 1-7 Days, Menses >/= 8 Days, Menses Variable, Cycle > 4 Weeks Between, No Menses for 6 Months, Heavy Menses, Light Menses, Normal Menses, Spotting Between Cycles, S/P Hysterectomy, Menopausal, Post Menopausal, Premenarche, Abnormal Vaginal Bleeding, Dysmenorrhea, Other - Integumentary Integumentary: absent: As Per HPI, Acne, Alopecia, Bleeding Lesions, Change in Hair, Change in Nails, Change in Pigmentation, Changing Lesions, Dry Skin, Erythema, Furuncle, Hirsutism, Lesions, New Lesions, Non-Healing Lesions, Photosensitivity, Pruritus, Rash, Skin Pain, Skin Ulcer, Sores, Striae, Swelling, Unusual Bruising, Wounds, Jaundice, Other - Neurological Neurological: absent: As Per HPI, Abnormal Gait, Abnormal Hearing, Abnormal Movements, Abnormal Speech, Behavioral Changes, Burning Sensations, Confusion, Convulsions, Disequilibrium, Dizziness, Numbness, Focal Weakness, Frequent Falls, Headaches, Lack of Coordination, Loss of Vision, Memory Loss, Paresthesias, Radicular Pain, Restless Legs, Sensory Deficit, Syncope, Tingling, Tremor, Vertigo, Weakness, Other Visual Disturbances, Other - Psychiatric Psychiatric: As Per HPI Past Patient History - Infectious Disease Hx of Infectious Diseases: None - Past Medical History & Family History Past Medical History?: Yes - Past Social History Smoking Status: Former Smoker - CARDIAC Hx Hypertension: Yes - PULMONARY Hx Chronic Obstructive Pulmonary Disease (COPD): Yes - NEUROLOGICAL Hx Neurological Disorder: No - HEENT Hx HEENT Problems: No - RENAL Hx Chronic Kidney Disease: No - ENDOCRINE/METABOLIC Hx Endocrine Disorders: No - HEMATOLOGICAL/ONCOLOGICAL Hx Blood Disorders: No - INTEGUMENTARY Hx Dermatological Problems: No - MUSCULOSKELETAL/RHEUMATOLOGICAL Hx Falls: No - GASTROINTESTINAL Hx Colitis: Yes Hx Colostomy: Yes - GENITOURINARY/GYNECOLOGICAL Hx Urinary Tract Infection: Yes - PSYCHIATRIC Hx Substance Use: No - SURGICAL HISTORY Hx Surgeries: No - ANESTHESIA Hx Anesthesia: No Meds Allergies/Adverse Reactions: Allergies Allergy/AdvReac Type Severity Reaction Status Date / Time cat dander Allergy RASH Verified 10/09/18 14:09 - Medications Medications: Current Medications Albuterol (Ventolin Hfa 90 Mcg/Actuation (8 G)) 90 puff IH RQ6 [facility] Last Admin: 10/11/18 01:33 Dose: Not Given Amlodipine Besylate (Norvasc) 10 mg PO DAILY [facility] Last Admin: 10/10/18 09:34 Dose: 10 mg Aspirin (Aspirin Chewable) 81 mg PO DAILY [facility] Last Admin: 10/10/18 09:34 Dose: 81 mg Fluticasone/Vilanterol (Breo Ellipta 100-25 Mcg Inh) 1 puff INH RQ24 [facility] Guaifenesin (Mucinex La) 600 mg PO BID [facility] Last Admin: 10/10/18 17:42 Dose: 600 mg Meropenem 500 mg/ Sodium (Chloride) 100 mls @ 100 mls/hr IVPB Q12H [facility]; Protocol Last Admin: 10/11/18 06:31 Dose: Not Given Losartan Potassium (Cozaar) 100 mg PO DAILY [facility] Last Admin: 10/10/18 09:34 Dose: 100 mg Metoprolol Succinate (Toprol Xl) 50 mg PO DAILY [facility] Last Admin: 10/10/18 09:34 Dose: 50 mg Mupirocin (Bactroban Ointment) 0 gm TOP BID [facility] Last Admin: 10/10/18 17:41 Dose: 1 applic Nitrofurantoin Macrocrystals (Macrobid) 100 mg PO Q12H [facility]; Protocol Last Admin: 10/11/18 06:30 Dose: 100 mg Prednisone (Prednisone Tab) 5 mg PO DAILY [facility] Last Admin: 10/10/18 09:34 Dose: 5 mg Rosuvastatin Calcium (Crestor) 10 mg PO HS [facility] Last Admin: 10/10/18 21:40 Dose: 10 mg Physical Exam - Constitutional Appears: Non-toxic, Confused, Cachectic, Chronically Ill - Head Exam Head Exam: ATRAUMATIC, NORMAL INSPECTION, NORMOCEPHALIC - Eye Exam Eye Exam: PERRL. absent: Scleral icterus - ENT Exam ENT Exam: Mucous Membranes Dry, Normal External Ear Exam - Neck Exam Neck exam: Negative for: Lymphadenopathy, Thyromegaly - Respiratory Exam Respiratory Exam: Decreased Breath Sounds, Clear to Auscultation Bilateral - Cardiovascular Exam Cardiovascular Exam: REGULAR RHYTHM, +S1, +S2 - GI/Abdominal Exam GI & Abdominal Exam: Diminished Bowel Sounds, Soft. absent: Tenderness Additional comments: + Colostomy - Rectal Exam Rectal Exam: Deferred - Exam Exam: NORMAL INSPECTION - Extremities Exam Extremities exam: Positive for: pedal pulses present. Negative for: calf tenderness, pedal edema, tenderness - Back Exam Back exam: absent: CVA tenderness (L), CVA tenderness (R) - Neurological Exam Neurological exam: Alert, CN II-XII Intact, Oriented x3, Reflexes Normal - Psychiatric Exam Psychiatric exam: Normal Mood - Skin Skin Exam: Dry, Intact Results - Vital Signs Recent Vital Signs: Last Vital Signs Temp 98.1 F 10/11/18 07:57 Pulse 110 H 10/11/18 07:57 Resp 20 10/11/18 07:57 BP 114/75 10/11/18 07:57 Pulse Ox 98 10/11/18 07:57 Assessment & Plan (1) Colostomy malfunction Status: Acute (2) COPD exacerbation Status: Acute (3) History of ESBL E. coli infection Status: Acute - Assessment and Plan (Free Text) Assessment: still refusing labs IV rx ordered for suspected UTI
[2018-10-11] MEDS: guaiFENesin 600 mg ER Tab PO SCH (17:36)
--- NOTE | 2018-10-11 21:12 | CP.PCM.PN ---
Subjective - Date & Time of Evaluation Date of Evaluation: 10/11/18 Time of Evaluation: 08:15 - Subjective Subjective: clinically same Objective - Vital Signs/Intake and Output Vital Signs (last 24 hours): Temp Pulse Resp BP Pulse Ox 97.4 F L 104 H 20 104/66 96 10/11/18 15:35 10/11/18 15:35 10/11/18 15:35 10/11/18 15:35 10/11/18 15:35 Intake and Output: 10/11/18 10/12/18 18:59 06:59 Intake Total 500 Output Total 450 Balance 50 - Medications Medications: Current Medications Albuterol (Ventolin Hfa 90 Mcg/Actuation (8 G)) 90 puff IH RQ6 [facility] Last Admin: 10/11/18 20:01 Dose: 2 puff Amlodipine Besylate (Norvasc) 10 mg PO DAILY [facility] Last Admin: 10/10/18 09:34 Dose: 10 mg Aspirin (Aspirin Chewable) 81 mg PO DAILY [facility] Last Admin: 10/10/18 09:34 Dose: 81 mg Fluticasone/Vilanterol (Breo Ellipta 100-25 Mcg Inh) 1 puff INH RQ24 [facility] Guaifenesin (Mucinex La) 600 mg PO BID [facility] Last Admin: 10/11/18 17:36 Dose: 600 mg Meropenem 500 mg/ Sodium (Chloride) 100 mls @ 100 mls/hr IVPB Q12H [facility]; Protocol Last Admin: 10/11/18 06:31 Dose: Not Given Losartan Potassium (Cozaar) 100 mg PO DAILY [facility] Last Admin: 10/10/18 09:34 Dose: 100 mg Metoprolol Succinate (Toprol Xl) 50 mg PO DAILY [facility] Last Admin: 10/10/18 09:34 Dose: 50 mg Mupirocin (Bactroban Ointment) 0 gm TOP BID [facility] Last Admin: 10/11/18 17:35 Dose: 1 applic Nitrofurantoin Macrocrystals (Macrobid) 100 mg PO Q12H [facility]; Protocol Last Admin: 10/11/18 06:30 Dose: 100 mg Prednisone (Prednisone Tab) 5 mg PO DAILY [facility] Last Admin: 10/10/18 09:34 Dose: 5 mg Rosuvastatin Calcium (Crestor) 10 mg PO HS [facility] Last Admin: 10/10/18 21:40 Dose: 10 mg - Constitutional Appears: Well - Head Exam Head Exam: ATRAUMATIC, NORMAL INSPECTION, NORMOCEPHALIC - Eye Exam Eye Exam: EOMI, Normal appearance, PERRL Pupil Exam: NORMAL ACCOMODATION, PERRL - ENT Exam ENT Exam: Mucous Membranes Moist, Normal Exam - Neck Exam Neck Exam: Full ROM, Normal Inspection. absent: Lymphadenopathy - Respiratory Exam Respiratory Exam: Decreased Breath Sounds - Cardiovascular Exam Cardiovascular Exam: REGULAR RHYTHM, +S1, +S2 - GI/Abdominal Exam GI & Abdominal Exam: Soft, Diminished Bowel Sounds - Rectal Exam Rectal Exam: Deferred Assessment and Plan - Assessment and Plan (Free Text) Plan: refuses bl;ood [place] refuses iv line on po nitrofuratoin psych consult as ordered
[2018-10-12] MEDS: Meropenem 500 MG in Sodium Chloride 0.9% 100 ML IVPB SCH ×2 (07:11→19:33)
[2018-10-12] MEDS: Albuterol HFA 90 mcg/actuation (8 g) IH SCH ×3 (07:40→19:00)
[2018-10-12] MEDS: guaiFENesin 600 mg ER Tab PO SCH ×2 (09:18→19:43)
[2018-10-12] MEDS: Metoprolol Succinate 50 mg XL Tab PO SCH (09:18)
[2018-10-12 12:44] VITALS: RESP 20
--- NOTE | 2018-10-12 13:45 | CP.PCM.PN ---
Subjective - Date & Time of Evaluation Date of Evaluation: 10/12/18 Time of Evaluation: 08:30 - Subjective Subjective: clinically same Objective - Vital Signs/Intake and Output Vital Signs (last 24 hours): Temp Pulse Resp BP Pulse Ox 98.4 F 97 H 20 122/70 97 10/12/18 07:00 10/12/18 07:00 10/12/18 07:00 10/12/18 07:00 10/12/18 07:00 Intake and Output: 10/12/18 10/12/18 06:59 18:59 Intake Total 250 200 Output Total 200 550 Balance 50 -350 - Medications Medications: Current Medications Albuterol (Ventolin Hfa 90 Mcg/Actuation (8 G)) 90 puff IH RQ6 [facility] Last Admin: 10/12/18 07:40 Dose: 90 puff Amlodipine Besylate (Norvasc) 10 mg PO DAILY [facility] Last Admin: 10/12/18 09:18 Dose: 10 mg Aspirin (Aspirin Chewable) 81 mg PO DAILY [facility] Last Admin: 10/12/18 09:17 Dose: 81 mg Fluticasone/Vilanterol (Breo Ellipta 100-25 Mcg Inh) 1 puff INH RQ24 [facility] Guaifenesin (Mucinex La) 600 mg PO BID [facility] Last Admin: 10/12/18 09:18 Dose: 600 mg Meropenem 500 mg/ Sodium (Chloride) 100 mls @ 100 mls/hr IVPB Q12H [facility]; Protocol Last Admin: 10/12/18 07:11 Dose: Not Given Losartan Potassium (Cozaar) 100 mg PO DAILY [facility] Last Admin: 10/12/18 09:18 Dose: 100 mg Metoprolol Succinate (Toprol Xl) 50 mg PO DAILY [facility] Last Admin: 10/12/18 09:18 Dose: 50 mg Mupirocin (Bactroban Ointment) 0 gm TOP BID [facility] Last Admin: 10/12/18 09:17 Dose: 1 applic Nitrofurantoin Macrocrystals (Macrobid) 100 mg PO Q12H [facility]; Protocol Last Admin: 10/12/18 06:22 Dose: 100 mg Prednisone (Prednisone Tab) 5 mg PO DAILY [facility] Last Admin: 10/12/18 11:00 Dose: Not Given Rosuvastatin Calcium (Crestor) 10 mg PO HS [facility] Last Admin: 10/11/18 22:40 Dose: 10 mg - Constitutional Appears: Well - Head Exam Head Exam: ATRAUMATIC, NORMAL INSPECTION, NORMOCEPHALIC - Eye Exam Eye Exam: EOMI, Normal appearance, PERRL Pupil Exam: NORMAL ACCOMODATION, PERRL - ENT Exam ENT Exam: Mucous Membranes Moist, Normal Exam - Neck Exam Neck Exam: Full ROM, Normal Inspection. absent: Lymphadenopathy - Respiratory Exam Respiratory Exam: Decreased Breath Sounds - Cardiovascular Exam Cardiovascular Exam: REGULAR RHYTHM, +S1, +S2 - GI/Abdominal Exam GI & Abdominal Exam: Soft, Diminished Bowel Sounds - Rectal Exam Rectal Exam: Deferred
--- NOTE | 2018-10-12 16:38 | CP.PCM.PN ---
Subjective - Date & Time of Evaluation Date of Evaluation: 10/12/18 Time of Evaluation: 07:00 - Subjective Subjective: afeb ESBL in urine refusing labs Objective - Vital Signs/Intake and Output Vital Signs (last 24 hours): Temp Pulse Resp BP Pulse Ox 98.4 F 97 H 20 122/70 97 10/12/18 07:00 10/12/18 07:00 10/12/18 07:00 10/12/18 07:00 10/12/18 07:00 Intake and Output: 10/12/18 10/12/18 06:59 18:59 Intake Total 250 560 Output Total 200 1050 Balance 50 -490 - Medications Medications: Current Medications Albuterol (Ventolin Hfa 90 Mcg/Actuation (8 G)) 90 puff IH RQ6 [facility] Last Admin: 10/12/18 13:30 Dose: 90 puff Amlodipine Besylate (Norvasc) 10 mg PO DAILY [facility] Last Admin: 10/12/18 09:18 Dose: 10 mg Aspirin (Aspirin Chewable) 81 mg PO DAILY [facility] Last Admin: 10/12/18 09:17 Dose: 81 mg Fluticasone/Vilanterol (Breo Ellipta 100-25 Mcg Inh) 1 puff INH RQ24 [facility] Guaifenesin (Mucinex La) 600 mg PO BID [facility] Last Admin: 10/12/18 09:18 Dose: 600 mg Meropenem 500 mg/ Sodium (Chloride) 100 mls @ 100 mls/hr IVPB Q12H [facility]; Protocol Last Admin: 10/12/18 07:11 Dose: Not Given Losartan Potassium (Cozaar) 100 mg PO DAILY [facility] Last Admin: 10/12/18 09:18 Dose: 100 mg Metoprolol Succinate (Toprol Xl) 50 mg PO DAILY [facility] Last Admin: 10/12/18 09:18 Dose: 50 mg Mupirocin (Bactroban Ointment) 0 gm TOP BID [facility] Last Admin: 10/12/18 09:17 Dose: 1 applic Nitrofurantoin Macrocrystals (Macrobid) 100 mg PO Q12H [facility]; Protocol Last Admin: 10/12/18 06:22 Dose: 100 mg Prednisone (Prednisone Tab) 5 mg PO DAILY [facility] Last Admin: 10/12/18 11:00 Dose: Not Given Rosuvastatin Calcium (Crestor) 10 mg PO HS [facility] Last Admin: 10/11/18 22:40 Dose: 10 mg - Constitutional Appears: Non-toxic, Chronically Ill - Head Exam Head Exam: NORMOCEPHALIC - Eye Exam Eye Exam: absent: Scleral icterus - ENT Exam ENT Exam: Mucous Membranes Dry - Neck Exam Neck Exam: absent: Lymphadenopathy - Respiratory Exam Respiratory Exam: Decreased Breath Sounds - Cardiovascular Exam Cardiovascular Exam: REGULAR RHYTHM - GI/Abdominal Exam GI & Abdominal Exam: Distended, Soft - Rectal Exam Rectal Exam: Deferred - Exam Exam: NORMAL INSPECTION Assessment and Plan (1) Colostomy malfunction Status: Acute (2) COPD exacerbation Status: Acute (3) History of ESBL E. coli infection Status: Acute - Assessment and Plan (Free Text) Assessment: cont rx
--- NOTE | 2018-10-12 17:42 | PQF ---
PROVIDER RESPONSE TEXT: Gram Negative UTI REVIEWER QUERY TEXT: Clarification of Clinical Diagnostic Findings Please clarify documentation or clinical relevance for the clinical / diagnostic findings or whether those are insignificant or unable to be further specified. The patient's Clinical Indicators include: Patient was recently evaluated in [facility] and underwent admission for urinary tract in fection and psychiatric evaluation. Patient was discharged to [facility] [place] on 09/[facility]. Urine Exam: Urine WBC: 1087 - Urine RBC: 7002 - Urine Leukocyte Esterase: 2+. Gram Negative Dewey on Urine Culture. Please consider verify the documentation, matching with Possible Gram Negative UTI, and please docume nt it if agree. Query created by: Warren Sellers on 10/11/2018 3:19 PM Electronically signed by: Michael KRAUS 10/12/2018 5:39 PM
--- NOTE | 2018-10-12 22:15 | PCM.PSYCH ---
Initial Psychiatric Evaluation - Initial Psychiatric Evaluation Type of Admission: Voluntary Legal Status: Capacity Chief Complaint (in patient's own words): I am feeling okay History of Present Illness and Precipitating Events: The patient is a 88 year old female, single, who lives alone, with past medical history includes hypertension, hyperlipidemia, COPD and depression, presented to the ED for evaluation of her colostomy bag leakage. Patient was admitted in August for abdominal pain. Psychiatry consulted for refusal of blood work/capacity. Patient states she does not want blood work performed as she is a hard stick and often times requires multiple attempts for blood work. Patient states she understands she can potentially not get better and from refusal of blood work. Patient states all her friends and family have and that when her time comes, she does not care to live. Patient denies any depressed mood or any feelings of hopelessness or helplessness. She denies any suicidal ideation. She denies any auditory or visual hallucinations or any paranoia. She denies any substance abuse however she reports of social drinking. 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 All: KNDA FH: denies Current Medications: Active Medications Generic Name Dose Route Start Last Admin Trade Name Freq PRN Reason Stop Dose Admin Albuterol 90 puff 10/10/18 08:00 10/12/18 19:00 Ventolin Hfa 90 Mcg/Actuation (8 G) IH 90 puff RQ6 JOHN Administration Amlodipine Besylate 10 mg 10/10/18 10:00 10/12/18 09:18 Norvasc PO 10 mg DAILY JOHN Administration Aspirin 81 mg 10/10/18 10:00 10/12/18 09:17 Aspirin Chewable PO 81 mg DAILY JOHN Administration Fluticasone/Vilanterol 1 puff 10/10/18 08:00 Breo Ellipta 100-25 Mcg Inh INH RQ24 JOHN Guaifenesin 600 mg 10/10/18 10:00 10/12/18 19:43 Mucinex La PO 600 mg BID JOHN Administration Meropenem 500 mg/ Sodium 100 mls @ 100 mls/hr 10/10/18 19:00 10/12/18 19:33 Chloride IVPB Not Given Q12H [facility] Protocol Losartan Potassium 100 mg 10/10/18 10:00 10/12/18 09:18 Cozaar PO 100 mg DAILY JOHN Administration Metoprolol Succinate 50 mg 10/10/18 10:00 10/12/18 09:18 Toprol Xl PO 50 mg DAILY JOHN Administration Mupirocin 0 gm 10/10/18 10:00 10/12/18 18:00 Bactroban Ointment TOP 1 applic BID JOHN Administration Nitrofurantoin Macrocrystals 100 mg 10/10/18 19:00 10/12/18 19:42 Macrobid PO 100 mg Q12H JOHN Administration Protocol Prednisone 5 mg 10/10/18 10:00 10/12/18 11:00 Prednisone Tab PO Not Given DAILY [facility] Rosuvastatin Calcium 10 mg 10/09/18 22:00 10/11/18 22:40 Crestor PO 10 mg HS JOHN Administration Past Psychiatric History - Past Psychiatric History Previous Treatment History: None Pertinent Medical Hx (Current Medical&Sleep Prob, Allergies): Allergies Allergy/AdvReac Type Severity Reaction Status Date / Time cat dander Allergy RASH Verified 10/09/18 14:09 Mupirocin 2% Ointment [Bactroban Ointment] 1 appl TP BID #1 tube 05/25/16 Albuterol HFA [Ventolin HFA 90 mcg/actuation (8 g)] 0.09 mg IH Q6 #2 puff 10/27/17 Aspirin [Aspirin Chewable] 81 mg PO DAILY #30 chew 10/27/17 Fluticasone/Salmeterol 250/50 [Advair Diskus 250/50] 1 dsk IH Q12 #2 puff 10/27/17 Losartan [Cozaar] 100 mg PO DAILY #30 tab 10/27/17 Metoprolol Succinate XL [Toprol XL] 50 mg PO DAILY #30 tab 10/27/17 Rosuvastatin Calcium [Crestor] 10 mg PO HS #30 tab 10/27/17 amLODIPine [Norvasc] 10 mg PO DAILY #30 tab 10/27/17 guaiFENesin [Mucinex LA] 600 mg PO BID #14 tab 10/27/17 predniSONE [predniSONE Tab] 5 mg PO DAILY #3 tab 10/27/17 Meropenem [Merrem IV] 1 gm IVPB Q12H 3 Days vial 08/22/18 Review of Systems - Review of Systems All systems: reviewed and no additional remarkable complaints except - Psychiatric Psychiatric: Anxiety, Irritability. absent: Suicidal Ideation Mental Status Examination - Personal Presentation Personal Presentation: Looks stated age - Affect Affect: Constricted - Motor Activity Motor Activity: Calm - Reliability in Providing Information Reliability in Providing Information: Good - Speech Speech: Organized - Mood Mood: Anxious - Formal Thought Process Formal Thought Process: No Impairment - Obsessions/Compulsions Obsessions: No Compulsions: No - Cognitive Functions Orientation: Person, Place, Situation, Time Sensorium: Alert Attention/Concentration: Attentive Abstract Thinking: [place] Estimate of Intelligence: Below average Judgement: Intact, as evidence by: Good judgement, Intact, as evidence by: Insight regarding need for hospitalization - Risk Risk: Diminished functioning - Limitations Limitations: Living alone DSM 5 DX - DSM 5 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 - Smoking Cessation Smoking Cessation Initiated: No
[2018-10-13] MEDS: Meropenem 500 MG in Sodium Chloride 0.9% 100 ML IVPB SCH ×2 (06:58→19:52)
[2018-10-13] MEDS: Albuterol HFA 90 mcg/actuation (8 g) IH SCH ×3 (07:20→19:22)
[2018-10-13] MEDS: Metoprolol Succinate 50 mg XL Tab PO SCH (10:00)
[2018-10-13] MEDS: guaiFENesin 600 mg ER Tab PO SCH ×3 (10:00→19:54)
--- NOTE | 2018-10-13 16:53 | CP.PCM.PN ---
Subjective - Date & Time of Evaluation Date of Evaluation: 10/13/18 Time of Evaluation: 08:00 - Subjective Subjective: refusing labs etc cont r x for uti Objective - Vital Signs/Intake and Output Vital Signs (last 24 hours): Temp Pulse Resp BP Pulse Ox 98.6 F 105 H 20 103/67 95 10/13/18 16:00 10/13/18 16:00 10/13/18 16:00 10/13/18 16:00 10/13/18 16:00 Intake and Output: 10/13/18 10/13/18 06:59 18:59 Intake Total 350 Output Total 1150 400 Balance -800 -400 - Medications Medications: Current Medications Albuterol (Ventolin Hfa 90 Mcg/Actuation (8 G)) 90 puff IH RQ6 [facility] Last Admin: 10/13/18 13:30 Dose: 90 puff Amlodipine Besylate (Norvasc) 10 mg PO DAILY [facility] Last Admin: 10/13/18 10:00 Dose: Not Given Aspirin (Aspirin Chewable) 81 mg PO DAILY [facility] Last Admin: 10/13/18 10:00 Dose: 81 mg Fluticasone/Vilanterol (Breo Ellipta 100-25 Mcg Inh) 1 puff INH RQ24 [facility] Guaifenesin (Mucinex La) 600 mg PO BID [facility] Last Admin: 10/13/18 11:50 Dose: 600 mg Meropenem 500 mg/ Sodium (Chloride) 100 mls @ 100 mls/hr IVPB Q12H [facility]; Protocol Last Admin: 10/13/18 06:58 Dose: Not Given Losartan Potassium (Cozaar) 100 mg PO DAILY [facility] Last Admin: 10/13/18 10:00 Dose: Not Given Metoprolol Succinate (Toprol Xl) 50 mg PO DAILY [facility] Last Admin: 10/13/18 10:00 Dose: Not Given Mupirocin (Bactroban Ointment) 0 gm TOP BID [facility] Last Admin: 10/13/18 10:00 Dose: 1 applic Nitrofurantoin Macrocrystals (Macrobid) 100 mg PO Q12H [facility]; Protocol Last Admin: 10/13/18 06:45 Dose: 100 mg Prednisone (Prednisone Tab) 5 mg PO DAILY [facility] Last Admin: 10/13/18 10:00 Dose: 5 mg Rosuvastatin Calcium (Crestor) 10 mg PO HS JOHN Last Admin: 10/12/18 22:00 Dose: Not Given - Constitutional Appears: Non-toxic, Chronically Ill - Head Exam Head Exam: NORMOCEPHALIC - Eye Exam Eye Exam: absent: Scleral icterus - ENT Exam ENT Exam: Mucous Membranes Dry - Neck Exam Neck Exam: absent: Thyromegaly - Respiratory Exam Respiratory Exam: Decreased Breath Sounds - Cardiovascular Exam Cardiovascular Exam: REGULAR RHYTHM - GI/Abdominal Exam GI & Abdominal Exam: Distended, Soft - Rectal Exam Rectal Exam: Deferred - Exam Exam: NORMAL INSPECTION - Extremities Exam Extremities Exam: absent: Pedal Edema - Back Exam Back Exam: absent: CVA tenderness (L), CVA tenderness (R) - Neurological Exam Neurological Exam: Alert, Awake, Oriented x3 Assessment and Plan (1) Colostomy malfunction Status: Acute (2) COPD exacerbation Status: Acute (3) History of ESBL E. coli infection Status: Acute - Assessment and Plan (Free Text) Assessment: cont iv then PO rx discussed with Dr Carter
--- NOTE | 2018-10-13 21:12 | CP.PCM.PN ---
Subjective - Date & Time of Evaluation Date of Evaluation: 10/13/18 Time of Evaluation: 08:00 - Subjective Subjective: clinically same Objective - Vital Signs/Intake and Output Vital Signs (last 24 hours): Temp Pulse Resp BP Pulse Ox 98.6 F 105 H 20 103/67 95 10/13/18 16:00 10/13/18 16:00 10/13/18 16:00 10/13/18 16:00 10/13/18 16:00 Intake and Output: 10/13/18 10/14/18 18:59 06:59 Output Total 400 Balance -400 - Medications Medications: Current Medications Albuterol (Ventolin Hfa 90 Mcg/Actuation (8 G)) 90 puff IH RQ6 [facility] Last Admin: 10/13/18 19:22 Dose: Not Given Amlodipine Besylate (Norvasc) 10 mg PO DAILY [facility] Last Admin: 10/13/18 10:00 Dose: Not Given Aspirin (Aspirin Chewable) 81 mg PO DAILY [facility] Last Admin: 10/13/18 10:00 Dose: 81 mg Fluticasone/Vilanterol (Breo Ellipta 100-25 Mcg Inh) 1 puff INH RQ24 [facility] Guaifenesin (Mucinex La) 600 mg PO BID [facility] Last Admin: 10/13/18 19:54 Dose: 600 mg Meropenem 500 mg/ Sodium (Chloride) 100 mls @ 100 mls/hr IVPB Q12H [facility]; Protocol Last Admin: 10/13/18 19:52 Dose: Not Given Losartan Potassium (Cozaar) 100 mg PO DAILY [facility] Last Admin: 10/13/18 10:00 Dose: Not Given Metoprolol Succinate (Toprol Xl) 50 mg PO DAILY [facility] Last Admin: 10/13/18 10:00 Dose: Not Given Mupirocin (Bactroban Ointment) 0 gm TOP BID [facility] Last Admin: 10/13/18 19:00 Dose: 1 applic Nitrofurantoin Macrocrystals (Macrobid) 100 mg PO Q12H [facility]; Protocol Last Admin: 10/13/18 19:54 Dose: 100 mg Prednisone (Prednisone Tab) 5 mg PO DAILY [facility] Last Admin: 10/13/18 10:00 Dose: 5 mg Rosuvastatin Calcium (Crestor) 10 mg PO HS [facility] Last Admin: 10/12/18 22:00 Dose: Not Given - Constitutional Appears: Well - Head Exam Head Exam: ATRAUMATIC, NORMAL INSPECTION, NORMOCEPHALIC - Eye Exam Eye Exam: EOMI, Normal appearance, PERRL Pupil Exam: NORMAL ACCOMODATION, PERRL - ENT Exam ENT Exam: Mucous Membranes Moist, Normal Exam - Neck Exam Neck Exam: Full ROM, Normal Inspection. absent: Lymphadenopathy - Respiratory Exam Respiratory Exam: Decreased Breath Sounds - Cardiovascular Exam Cardiovascular Exam: REGULAR RHYTHM, +S1, +S2 - GI/Abdominal Exam GI & Abdominal Exam: Soft, Diminished Bowel Sounds - Rectal Exam Rectal Exam: Deferred
[2018-10-14] MEDS: Meropenem 500 MG in Sodium Chloride 0.9% 100 ML IVPB SCH ×2 (07:35→18:36)
[2018-10-14] MEDS: Albuterol HFA 90 mcg/actuation (8 g) IH SCH ×3 (08:27→19:11)
[2018-10-14] MEDS: guaiFENesin 600 mg ER Tab PO SCH ×2 (09:47→17:44)
[2018-10-14] MEDS: Metoprolol Succinate 50 mg XL Tab PO SCH (09:47)
--- NOTE | 2018-10-14 21:23 | CP.PCM.PN ---
Subjective - Date & Time of Evaluation Date of Evaluation: 10/14/18 Time of Evaluation: 07:45 - Subjective Subjective: clinically same Objective - Vital Signs/Intake and Output Vital Signs (last 24 hours): Temp Pulse Resp BP Pulse Ox 98.1 F 101 H 20 102/64 98 10/14/18 18:21 10/14/18 18:21 10/14/18 18:21 10/14/18 18:21 10/14/18 18:21 - Medications Medications: Current Medications Albuterol (Ventolin Hfa 90 Mcg/Actuation (8 G)) 90 puff IH RQ6 [facility] Last Admin: 10/14/18 19:11 Dose: 1 puff Amlodipine Besylate (Norvasc) 10 mg PO DAILY [facility] Last Admin: 10/14/18 09:47 Dose: 10 mg Aspirin (Aspirin Chewable) 81 mg PO DAILY [facility] Last Admin: 10/14/18 09:47 Dose: 81 mg Fluticasone/Vilanterol (Breo Ellipta 100-25 Mcg Inh) 1 puff INH RQ24 [facility] Guaifenesin (Mucinex La) 600 mg PO BID [facility] Last Admin: 10/14/18 17:44 Dose: 600 mg Meropenem 500 mg/ Sodium (Chloride) 100 mls @ 100 mls/hr IVPB Q12H [facility]; Protocol Last Admin: 10/14/18 18:36 Dose: Not Given Losartan Potassium (Cozaar) 100 mg PO DAILY [facility] [place] Last Admin: 10/14/18 09:46 Dose: 100 mg Metoprolol Succinate (Toprol Xl) 50 mg PO DAILY [facility] Last Admin: 10/14/18 09:47 Dose: 50 mg Mupirocin (Bactroban Ointment) 0 gm TOP BID [facility] Last Admin: 10/14/18 17:44 Dose: 1 applic Nitrofurantoin Macrocrystals (Macrobid) 100 mg PO Q12H [facility]; Protocol Last Admin: 10/14/18 18:01 Dose: 100 mg Prednisone (Prednisone Tab) 5 mg PO DAILY [facility] Last Admin: 10/14/18 09:46 Dose: 5 mg Rosuvastatin Calcium (Crestor) 10 mg PO HS [facility] Last Admin: 10/13/18 21:20 Dose: 10 mg - Constitutional Appears: Well - Head Exam Head Exam: ATRAUMATIC, NORMAL INSPECTION, NORMOCEPHALIC - Eye Exam Eye Exam: EOMI, Normal appearance, PERRL Pupil Exam: NORMAL ACCOMODATION, PERRL - ENT Exam ENT Exam: Mucous Membranes Moist, Normal Exam - Neck Exam Neck Exam: Full ROM, Normal Inspection. absent: Lymphadenopathy - Respiratory Exam Respiratory Exam: Decreased Breath Sounds - Cardiovascular Exam Cardiovascular Exam: REGULAR RHYTHM, +S1, +S2 - GI/Abdominal Exam GI & Abdominal Exam: Soft, Diminished Bowel Sounds - Rectal Exam Rectal Exam: Deferred Assessment and Plan - Assessment and Plan (Free Text) Plan: refuses blood wokrup refuses iv line refuses lovenox enrique same id consult with dr. loya possible discharge to subacute rehab
[2018-10-15] MEDS: Albuterol HFA 90 mcg/actuation (8 g) IH SCH ×3 (01:01→14:47)
[2018-10-15] MEDS: Meropenem 500 MG in Sodium Chloride 0.9% 100 ML IVPB SCH ×2 (06:51→19:59)
[2018-10-15] MEDS: Metoprolol Succinate 50 mg XL Tab PO SCH (10:06)
[2018-10-15] MEDS: guaiFENesin 600 mg ER Tab PO SCH ×2 (10:07→17:26)
--- NOTE | 2018-10-15 15:47 | CP.PCM.PN ---
Subjective - Date & Time of Evaluation Date of Evaluation: 10/15/18 Time of Evaluation: 09:00 - Subjective Subjective: awake alert refusing IV antibiotics Objective - Vital Signs/Intake and Output Vital Signs (last 24 hours): Temp Pulse Resp BP Pulse Ox 98.1 F 98 H 20 118/67 98 10/15/18 08:00 10/15/18 08:00 10/15/18 08:00 10/15/18 08:00 10/15/18 08:00 Intake and Output: 10/15/18 10/15/18 06:59 18:59 Intake Total 560 Output Total 480 Balance 80 - Medications Medications: Current Medications Albuterol (Ventolin Hfa 90 Mcg/Actuation (8 G)) 90 puff IH RQ6 [facility] Last Admin: 10/15/18 14:47 Dose: Not Given Amlodipine Besylate (Norvasc) 10 mg PO DAILY [facility] Last Admin: 10/15/18 10:05 Dose: 10 mg Aspirin (Aspirin Chewable) 81 mg PO DAILY [facility] Last Admin: 10/15/18 10:06 Dose: 81 mg Fluticasone/Vilanterol (Breo Ellipta 100-25 Mcg Inh) 1 puff INH RQ24 [facility] Guaifenesin (Mucinex La) 600 mg PO BID [facility] Last Admin: 10/15/18 10:07 Dose: 600 mg Meropenem 500 mg/ Sodium (Chloride) 100 mls @ 100 mls/hr IVPB Q12H [facility]; Protocol Last Admin: 10/15/18 06:51 Dose: Not Given Losartan Potassium (Cozaar) 100 mg PO DAILY [facility] Last Admin: 10/15/18 10:07 Dose: 100 mg Metoprolol Succinate (Toprol Xl) 50 mg PO DAILY [facility] Last Admin: 10/15/18 10:06 Dose: 50 mg Mupirocin (Bactroban Ointment) 0 gm TOP BID [facility] Last Admin: 10/15/18 10:06 Dose: 1 applic Nitrofurantoin Macrocrystals (Macrobid) 100 mg PO Q12H [facility]; Protocol Last Admin: 10/15/18 06:43 Dose: 100 mg Prednisone (Prednisone Tab) 5 mg PO DAILY [facility] Last Admin: 10/15/18 10:06 Dose: 5 mg Rosuvastatin Calcium (Crestor) 10 mg PO HS [facility] Last Admin: 10/14/18 21:56 Dose: 10 mg - Constitutional Appears: Non-toxic, Cachectic, Chronically Ill - Head Exam Head Exam: NORMOCEPHALIC - Eye Exam Eye Exam: absent: Scleral icterus - ENT Exam ENT Exam: Mucous Membranes Dry - Neck Exam Neck Exam: absent: Lymphadenopathy - Respiratory Exam Respiratory Exam: Decreased Breath Sounds - Cardiovascular Exam Cardiovascular Exam: REGULAR RHYTHM - GI/Abdominal Exam GI & Abdominal Exam: Distended, Soft Assessment and Plan (1) Colostomy malfunction Status: Acute (2) COPD exacerbation Status: Acute (3) History of ESBL E. coli infection Status: Acute - Assessment and Plan (Free Text) Assessment: cont po rx eval
--- NOTE | 2018-10-15 20:32 | CP.PCM.PN ---
Subjective - Date & Time of Evaluation Date of Evaluation: 10/15/18 Time of Evaluation: 08:00 - Subjective Subjective: clinically same Objective - Vital Signs/Intake and Output Vital Signs (last 24 hours): Temp Pulse Resp BP Pulse Ox 98.1 F 98 H 20 118/67 98 10/15/18 08:00 10/15/18 08:00 10/15/18 08:00 10/15/18 08:00 10/15/18 08:00 Intake and Output: 10/15/18 10/16/18 18:59 06:59 Intake Total 560 Output Total 480 Balance 80 - Medications Medications: Current Medications Albuterol (Ventolin Hfa 90 Mcg/Actuation (8 G)) 90 puff IH RQ6 [facility] Last Admin: 10/15/18 14:47 Dose: Not Given Amlodipine Besylate (Norvasc) 10 mg PO DAILY [facility] Last Admin: 10/15/18 10:05 Dose: 10 mg Aspirin (Aspirin Chewable) 81 mg PO DAILY [facility] Last Admin: 10/15/18 10:06 Dose: 81 mg Fluticasone/Vilanterol (Breo Ellipta 100-25 Mcg Inh) 1 puff INH RQ24 [facility] Guaifenesin (Mucinex La) 600 mg PO BID [facility] Last Admin: 10/15/18 17:26 Dose: 600 mg Meropenem 500 mg/ Sodium (Chloride) 100 mls @ 100 mls/hr IVPB Q12H [facility]; Protocol Last Admin: 10/15/18 19:59 Dose: Not Given Losartan Potassium (Cozaar) 100 mg PO DAILY [facility] Last Admin: 10/15/18 10:07 Dose: 100 mg Metoprolol Succinate (Toprol Xl) 50 mg PO DAILY [facility] Last Admin: 10/15/18 10:06 Dose: 50 mg Mupirocin (Bactroban Ointment) 0 gm TOP BID [facility] Last Admin: 10/15/18 19:57 Dose: 1 applic Nystatin (Nystop Topical Powder) 1 applic TOP BID [facility] Last Admin: 10/15/18 19:56 Dose: 1 applic Prednisone (Prednisone Tab) 5 mg PO DAILY [facility] Last Admin: 10/15/18 10:06 Dose: 5 mg Rosuvastatin Calcium (Crestor) 10 mg PO HS [facility] Last Admin: 10/14/18 21:56 Dose: 10 mg - Constitutional Appears: Well - Head Exam Head Exam: ATRAUMATIC, NORMAL INSPECTION, NORMOCEPHALIC - Eye Exam Eye Exam: EOMI, Normal appearance, PERRL Pupil Exam: NORMAL ACCOMODATION, PERRL - ENT Exam ENT Exam: Mucous Membranes Moist, Normal Exam - Neck Exam Neck Exam: Full ROM, Normal Inspection. absent: Lymphadenopathy - Respiratory Exam Respiratory Exam: Decreased Breath Sounds - Cardiovascular Exam Cardiovascular Exam: REGULAR RHYTHM, +S1, +S2 - GI/Abdominal Exam GI & Abdominal Exam: Soft, Diminished Bowel Sounds - Rectal Exam Rectal Exam: Deferred
[2018-10-15 23:49] VITALS: O2SAT 97
[2018-10-16] MEDS: Albuterol HFA 90 mcg/actuation (8 g) IH SCH ×3 (02:29→13:26)
[2018-10-16] MEDS: Meropenem 500 MG in Sodium Chloride 0.9% 100 ML IVPB SCH (06:18)
[2018-10-16 07:09] VITALS: BP 103/60; PULSE 87; TEMP 97.8
[2018-10-16] MEDS: guaiFENesin 600 mg ER Tab PO SCH (10:39)
[2018-10-16] MEDS: Metoprolol Succinate 50 mg XL Tab PO SCH (10:40)
== END 2018-10-16 16:02 | disposition home health service (06) | DRG 394 ==
LOC: C.ER 13:53 → C.9E 15:18 → C.3T 16:50
PROVIDERS: ADMIT Internal Medicine Nephrology; ATTEND Internal Medicine Nephrology
DX: K94.03 Colostomy malfunction (principal); N39.0 Urinary tract infection, site not specified; J44.1 Chronic obstructive pulmonary disease with (acute) exacerbation; I10 Essential (primary) hypertension; F43.22 Adjustment disorder with anxiety; E78.5 Hyperlipidemia, unspecified; B96.20 Unspecified Escherichia coli [E. coli] as the cause of diseases classified elsewhere; Z87.891 Personal history of nicotine dependence; Z86.19 Personal history of other infectious and parasitic diseases